=== PATIENT | female | born 1960 | race Caucasian/White ===

== ENCOUNTER 2017-08-15 05:04 | Inpatient (IN) | payer OTHER ==
[2017-08-15 05:24] LABS: ADD MAN DIFF? NO
[2017-08-15 05:29] LABS: WHITE BLOOD COUNT 17.5 10^3/ul (4.8-10.8)
[2017-08-15 05:29] LABS: BASOPHIL # 0.1 10^3/ul (0.0-0.1); BASOPHILS % 0.3 % (0.0-2.0); EOSINOPHILS # 0.2 10^3/ul (0.0-0.5); EOSINOPHILS % 1.1 % (0.0-7.0); HEMATOCRIT 29.8 % (37.0-47.0); HEMOGLOBIN 9.2 g/dl (12.0-16.0); LYMPHOCYTES # 1.5 10^3/ul (0.8-2.9); LYMPHOCYTES % 8.3 % (15.0-51.0); MEAN CORPUSCULAR HEMOGLOBIN 29.4 pg (29.0-33.0); MEAN CORPUSCULAR HGB CONC 30.9 g/dl (32.0-37.0); MEAN CORPUSCULAR VOLUME 95.2 fl (82.0-101.0); MEAN PLATELET VOLUME 9.6 fl (7.4-10.4); MONOCYTE # 0.9 10^3/ul (0.3-0.9); MONOCYTES % 4.9 % (0.0-11.0); NEUTROPHIL # 14.7 10^3/ul (1.6-7.5); PLATELET COUNT 296 10^3/UL (140-415); RED BLOOD COUNT 3.13 10^6/ul (4.20-5.40); RED CELL DISTRIBUTION WIDTH 16.7 % (11.5-14.5)
[2017-08-15 05:53] LABS: ALANINE AMINOTRANSFERASE 16 IU/L (13-69); ALKALINE PHOSPHATASE 181 IU/L (42-121); ANION GAP 14 (8-16); ASPARTATE AMINO TRANSFERASE 37 IU/L (15-46); BILIRUBIN,INDIRECT 0.2 mg/dl (0-1.1); BILIRUBIN,TOTAL 0.2 mg/dl (0.2-1.3); BLOOD UREA NITROGEN 44 mg/dl (7-20); CALCIUM 7.9 mg/dl (8.4-10.2); CARBON DIOXIDE 21 mmol/L (21-31); CHLORIDE 111 mmol/L (97-110); CREATININE 3.55 mg/dl (0.44-1.00); GLUCOSE 207 mg/dl (70-220); INR 1.16; POTASSIUM 4.4 mmol/L (3.5-5.1); PROTIME 14.9 Sec (12.2-14.2); PT RATIO 1.2; SODIUM 142 mmol/L (135-144)
[2017-08-15 05:54] LABS: PARTIAL THROMBOPLASTIN TIME 34.2 Sec (25.0-35.0)
[2017-08-15 06:02] LABS: B-TYPE NATRIURETIC PEPTIDE 2450 PG/ML (0-125)
[2017-08-15 06:04] LABS: TROPONIN-I 0.013 ng/ml (0.00-0.12)
[2017-08-15 06:26] LABS: LACTIC ACID 1.1 mmol/L (0.5-2.0)
[2017-08-15] MEDS: CEFTRIAXONE 2 GM/50 ML (PMX) 50 ML IVPB (07:00)
[2017-08-15] MEDS: VANCOMYCIN IVPB (07:31)
[2017-08-15] MEDS: SOD CHLORIDE 0.9% IVPB (07:31)
[2017-08-15 07:40] LABS: ADD UMIC YES; UR ASCORBIC ACID NEGATIVE (NEGATIVE); UR BACTERIA MANY /HPF (NONE SEEN); UR BILIRUBIN (Dip) NEGATIVE (NEGATIVE); UR BLOOD (Dip) NEGATIVE (NEGATIVE); UR BUDDING YEAST MANY /HPF (NONE SEEN); UR CLARITY CLOUDY (CLEAR); UR COLOR YELLOW (YELLOW); UR GLUCOSE (Dip) 1+ mg/dL (NEGATIVE); UR KETONES (Dip) NEGATIVE (NEGATIVE); UR LEUKOCYTE ESTERASE (Dip) 3+ Leu/ul (NEGATIVE); UR NITRITE (Dip) NEGATIVE (NEGATIVE); UR RBC 35 /HPF (0-5); UR SPECIFIC GRAVITY (Dip) 1.013 (1.003-1.030); UR TOTAL PROTEIN (Dip) 3+ mg/dl (NEGATIVE); UR UROBILINOGEN (Dip) NEGATIVE (NEGATIVE); UR WBC > 182 /HPF (0-5)
[2017-08-15] MEDS ORDERED: ACETAMINOPHEN 325 MG TAB PO (08:00)
[2017-08-15] MEDS ORDERED: ONDANSETRON 4 MG INJ IV (08:00)
[2017-08-15 08:10] LABS: LACTIC ACID 0.9 mmol/L (0.5-2.0)
[2017-08-15 10:03] LABS: LACTIC ACID 0.8 mmol/L (0.5-2.0)
[2017-08-15] MEDS ORDERED: CEFTRIAXONE 1 GM/50 ML (PMX) 50 ML IVPB ×2 (16:30→17:00)
[2017-08-15] MEDS ORDERED: NACL 0.9% 3 ML SYG IV (16:30)
[2017-08-15] MEDS: SOD CHLORIDE 0.9% 1,000 ML IV (16:39)
[2017-08-15] MEDS: INSULIN ASPART [NOVOLOG] 3 ML PEN SC ×2 (17:42→21:00)
[2017-08-15] MEDS: HYDROCODONE/APAP (5/325) TAB PO (19:32)
[2017-08-16] MEDS: SOD CHLORIDE 0.9% 1,000 ML IV ×3 (02:13→23:49)
[2017-08-16] MEDS: ACCU-CHEK XX (02:54)
[2017-08-16] MEDS: PANTOPRAZOLE (EC) 40 MG TAB PO (06:03)
[2017-08-16] MEDS: CEFTRIAXONE 1 GM/50 ML (PMX) 50 ML IVPB (06:06)
[2017-08-16] MEDS: FUROSEMIDE 40 MG INJ IV (06:06)
[2017-08-16 07:33] LABS: ADD MAN DIFF? NO
[2017-08-16 07:38] LABS: BASOPHILS % 0.3 % (0.0-2.0); EOSINOPHILS # 0.3 10^3/ul (0.0-0.5); EOSINOPHILS % 1.7 % (0.0-7.0); HEMOGLOBIN 8.2 g/dl (12.0-16.0); LYMPHOCYTES # 1.1 10^3/ul (0.8-2.9); LYMPHOCYTES % 7.3 % (15.0-51.0); MEAN CORPUSCULAR HEMOGLOBIN 29.6 pg (29.0-33.0); MEAN CORPUSCULAR HGB CONC 30.4 g/dl (32.0-37.0); MEAN CORPUSCULAR VOLUME 97.5 fl (82.0-101.0); MEAN PLATELET VOLUME 9.6 fl (7.4-10.4); MONOCYTE # 0.8 10^3/ul (0.3-0.9); MONOCYTES % 5.5 % (0.0-11.0); NEUTROPHIL # 12.6 10^3/ul (1.6-7.5); NEUTROPHILS % 84.1 % (39.0-77.0); PLATELET COUNT 245 10^3/UL (140-415); RED BLOOD COUNT 2.77 10^6/ul (4.20-5.40); RED CELL DISTRIBUTION WIDTH 16.3 % (11.5-14.5)
[2017-08-16] MEDS: POTASSIUM CHLORIDE (SR) 20 MEQ TAB PO (08:07)
[2017-08-16] MEDS: ASPIRIN 81 MG TAB PO (08:07)
[2017-08-16] MEDS: LINAGLIPTIN 5 MG TABLET PO (08:07)
[2017-08-16] MEDS: MULTIVIT/CA CARB/B CMPLX/FA TAB PO (08:07)
[2017-08-16 08:08] LABS: ANION GAP 12 (8-16); BLOOD UREA NITROGEN 45 mg/dl (7-20); CALCIUM 7.7 mg/dl (8.4-10.2); CARBON DIOXIDE 21 mmol/L (21-31); CHLORIDE 112 mmol/L (97-110); CREATININE 3.34 mg/dl (0.44-1.00); GLUCOSE 172 mg/dl (70-220); MAGNESIUM 1.4 mg/dl (1.7-2.5); PHOSPHORUS 5.7 mg/dl (2.5-4.9); POTASSIUM 4.1 mmol/L (3.5-5.1); SODIUM 141 mmol/L (135-144)
[2017-08-16] MEDS: INSULIN ASPART [NOVOLOG] 3 ML PEN SC ×6 (08:12→22:52)
[2017-08-16] MEDS ORDERED: GLUCOSE GEL 15 GRAM TUBE BUCCAL (12:00)
[2017-08-16] MEDS ORDERED: GLUCOSE GEL 15 GRAM TUBE PO ×2 (12:00)
[2017-08-16] MEDS ORDERED: DEXTROSE 50% 50 ML SYRINGE IV ×2 (12:00)
[2017-08-16] MEDS ORDERED: GLUCAGON 1 MG INJ IM (12:00)
[2017-08-16] MEDS ORDERED: VANCOMYCIN IV PER PHARMACY XX (13:00)
[2017-08-16] MEDS: FLUCONAZOLE 100 MG/NS (PMX) 50 ML IVPB (13:18)
[2017-08-16] MEDS: MAGNESIUM SULFATE 2 GM/50 ML 50 ML IVPB (14:15)
[2017-08-16] MEDS: ISOSORBIDE DINITRATE 20 MG TAB PO ×2 (14:16→22:27)
[2017-08-16] MEDS: EPOETIN 3000 UNITS/1 ML INJ (ESRD) SC (17:48)
[2017-08-16] MEDS: ATORVASTATIN 40 MG TAB PO (22:26)
[2017-08-16] MEDS: INSULIN GLARGINE [LANtus] 3 ML PEN SC (22:52)
[2017-08-17] MEDS: ACCU-CHEK XX ×2 (02:00)
[2017-08-17] MEDS ORDERED: hydrALAzine 20 MG INJ IV (03:30)
[2017-08-17 05:41] LABS: ADD MAN DIFF? NO
[2017-08-17 05:42] LABS: WHITE BLOOD COUNT 14.3 10^3/ul (4.8-10.8)
[2017-08-17 05:42] LABS: BASOPHILS % 0.2 % (0.0-2.0); EOSINOPHILS # 0.3 10^3/ul (0.0-0.5); HEMATOCRIT 26.1 % (37.0-47.0); HEMOGLOBIN 7.9 g/dl (12.0-16.0); LYMPHOCYTES # 1.2 10^3/ul (0.8-2.9); LYMPHOCYTES % 8.5 % (15.0-51.0); MEAN CORPUSCULAR HGB CONC 30.3 g/dl (32.0-37.0); MEAN PLATELET VOLUME 9.7 fl (7.4-10.4); MONOCYTE # 0.9 10^3/ul (0.3-0.9); NEUTROPHIL # 11.8 10^3/ul (1.6-7.5); NEUTROPHILS % 82.4 % (39.0-77.0); PLATELET COUNT 227 10^3/UL (140-415); RED BLOOD COUNT 2.72 10^6/ul (4.20-5.40); RED CELL DISTRIBUTION WIDTH 16.4 % (11.5-14.5)
[2017-08-17 05:56] LABS: HEMOGLOBIN A1C 6.1 % (0-5.9)
[2017-08-17 06:35] LABS: ANION GAP 11 (8-16); BLOOD UREA NITROGEN 44 mg/dl (7-20); CALCIUM 7.7 mg/dl (8.4-10.2); CARBON DIOXIDE 20 mmol/L (21-31); CHLORIDE 114 mmol/L (97-110); CHOL/HDL RATIO 3.9 RATIO; CHOLESTEROL 106 mg/dl (100-200); CREATININE 3.55 mg/dl (0.44-1.00); GLUCOSE 156 mg/dl (70-220); HDL CHOLESTEROL 27 mg/dl (37-92); LDL CHOLESTEROL,CALCULATED 60 mg/dl; POTASSIUM 4.1 mmol/L (3.5-5.1); SODIUM 141 mmol/L (135-144); TRIGLYCERIDES 94 mg/dl (0-149)
[2017-08-17] MEDS: CEFTRIAXONE 1 GM/50 ML (PMX) 50 ML IVPB (06:35)
[2017-08-17] MEDS: PANTOPRAZOLE (EC) 40 MG TAB PO (06:35)
[2017-08-17 06:36] LABS: VANCOMYCIN,RANDOM 13.8 ug/ml
[2017-08-17] MEDS: FUROSEMIDE 40 MG INJ IV (06:36)
[2017-08-17 06:54] LABS: THYROID STIMULATING HORMONE 0.826 MIU/L (0.465-4.680)
[2017-08-17] MEDS: MULTIVIT/CA CARB/B CMPLX/FA TAB PO (08:20)
[2017-08-17] MEDS: ISOSORBIDE DINITRATE 20 MG TAB PO ×3 (08:21→21:02)
[2017-08-17] MEDS: POTASSIUM CHLORIDE (SR) 20 MEQ TAB PO (08:21)
[2017-08-17] MEDS: LINAGLIPTIN 5 MG TABLET PO (08:21)
[2017-08-17] MEDS: ASPIRIN 81 MG TAB PO (08:22)
[2017-08-17] MEDS: INSULIN ASPART [NOVOLOG] 3 ML PEN SC ×7 (08:23→21:00)
[2017-08-17] MEDS: VANCOMYCIN 1.5 GM in SOD CHLORIDE 0.9% 250 ML IVPB (10:49)
[2017-08-17] MEDS: CITRIC ACID/SODIUM CITRATE 15 ML CUP PO ×2 (13:36→21:03)
[2017-08-17] MEDS: FLUCONAZOLE 100 MG/NS (PMX) 50 ML IVPB (14:45)
[2017-08-17] MEDS: ATORVASTATIN 40 MG TAB PO (21:01)
[2017-08-17] MEDS: VORICONAZOLE 200 MG TAB PO (21:02)
[2017-08-17] MEDS: INSULIN GLARGINE [LANtus] 3 ML PEN SC (21:11)
[2017-08-18] MEDS: ACCU-CHEK XX ×2 (02:00)
[2017-08-18] MEDS: hydrALAzine 20 MG INJ IV (02:31)
[2017-08-18] MEDS: FUROSEMIDE 40 MG INJ IV (05:30)
[2017-08-18] MEDS: PANTOPRAZOLE (EC) 40 MG TAB PO (05:30)
[2017-08-18] MEDS: INSULIN ASPART [NOVOLOG] 3 ML PEN SC ×7 (08:04→20:55)
[2017-08-18] MEDS: CITRIC ACID/SODIUM CITRATE 15 ML CUP PO ×3 (08:28→20:54)
[2017-08-18] MEDS: ASPIRIN 81 MG TAB PO (08:28)
[2017-08-18] MEDS: POTASSIUM CHLORIDE (SR) 20 MEQ TAB PO (08:29)
[2017-08-18] MEDS: MULTIVIT/CA CARB/B CMPLX/FA TAB PO (08:29)
[2017-08-18] MEDS: ISOSORBIDE DINITRATE 20 MG TAB PO ×3 (08:29→20:55)
[2017-08-18] MEDS: VORICONAZOLE 200 MG TAB PO ×2 (08:29→20:54)
[2017-08-18] MEDS: LINAGLIPTIN 5 MG TABLET PO (08:30)
[2017-08-18] MEDS: ATORVASTATIN 40 MG TAB PO (20:54)
[2017-08-18] MEDS: INSULIN GLARGINE [LANtus] 3 ML PEN SC (21:00)
[2017-08-19] MEDS: ACCU-CHEK XX ×2 (01:54→01:55)
[2017-08-19 05:56] LABS: ADD MAN DIFF? NO
[2017-08-19] MEDS: PANTOPRAZOLE (EC) 40 MG TAB PO (06:01)
[2017-08-19] MEDS: FUROSEMIDE 40 MG INJ IV (06:01)
[2017-08-19 06:11] LABS: BASOPHILS % 0.2 % (0.0-2.0); EOSINOPHILS # 0.3 10^3/ul (0.0-0.5); EOSINOPHILS % 1.9 % (0.0-7.0); HEMATOCRIT 24.7 % (37.0-47.0); HEMOGLOBIN 7.4 g/dl (12.0-16.0); LYMPHOCYTES # 1.6 10^3/ul (0.8-2.9); MEAN CORPUSCULAR HEMOGLOBIN 28.7 pg (29.0-33.0); MEAN CORPUSCULAR VOLUME 95.7 fl (82.0-101.0); MONOCYTE # 0.9 10^3/ul (0.3-0.9); MONOCYTES % 5.8 % (0.0-11.0); PLATELET COUNT 229 10^3/UL (140-415); RED BLOOD COUNT 2.58 10^6/ul (4.20-5.40)
[2017-08-19 06:11] LABS: WHITE BLOOD COUNT 16.1 10^3/ul (4.8-10.8)
[2017-08-19 06:38] LABS: ANION GAP 14 (8-16); BLOOD UREA NITROGEN 49 mg/dl (7-20); CALCIUM 7.4 mg/dl (8.4-10.2); CARBON DIOXIDE 21 mmol/L (21-31); CHLORIDE 111 mmol/L (97-110); CREATININE 3.48 mg/dl (0.44-1.00); GLUCOSE 147 mg/dl (70-220); POTASSIUM 4.5 mmol/L (3.5-5.1); SODIUM 141 mmol/L (135-144)
[2017-08-19] MEDS: INSULIN ASPART [NOVOLOG] 3 ML PEN SC ×7 (08:21→20:42)
[2017-08-19] MEDS: MULTIVIT/CA CARB/B CMPLX/FA TAB PO (09:56)
[2017-08-19] MEDS: ASPIRIN 81 MG TAB PO (09:56)
[2017-08-19] MEDS: CITRIC ACID/SODIUM CITRATE 15 ML CUP PO ×3 (09:56→20:41)
[2017-08-19] MEDS: LINAGLIPTIN 5 MG TABLET PO (09:56)
[2017-08-19] MEDS: POTASSIUM CHLORIDE (SR) 20 MEQ TAB PO (09:56)
[2017-08-19] MEDS: VORICONAZOLE 200 MG TAB PO ×2 (09:56→20:40)
[2017-08-19] MEDS: ISOSORBIDE DINITRATE 20 MG TAB PO ×3 (09:57→20:42)
[2017-08-19] MEDS: EPOETIN 3000 UNITS/1 ML INJ (ESRD) SC (17:27)
[2017-08-19] MEDS: ATORVASTATIN 40 MG TAB PO (20:40)
[2017-08-19] MEDS: INSULIN GLARGINE [LANtus] 3 ML PEN SC (20:45)
[2017-08-19] MEDS: VANCOMYCIN 1.25 GM in SOD CHLORIDE 0.9% 250 ML IVPB (20:47)
[2017-08-19] MEDS: CLOTRIMAZOLE 1% 30 GM CR TOP ×2 (21:00→22:47)
[2017-08-20] MEDS: ACCU-CHEK XX ×2 (02:00)
[2017-08-20] MEDS: PANTOPRAZOLE (EC) 40 MG TAB PO (05:23)
[2017-08-20] MEDS: FUROSEMIDE 40 MG INJ IV (05:25)
[2017-08-20 06:19] LABS: ADD MAN DIFF? NO
[2017-08-20 06:27] LABS: WHITE BLOOD COUNT 15.1 10^3/ul (4.8-10.8)
[2017-08-20 06:27] LABS: BASOPHIL # 0.1 10^3/ul (0.0-0.1); BASOPHILS % 0.3 % (0.0-2.0); EOSINOPHILS # 0.3 10^3/ul (0.0-0.5); EOSINOPHILS % 1.7 % (0.0-7.0); HEMATOCRIT 24.7 % (37.0-47.0); HEMOGLOBIN 7.6 g/dl (12.0-16.0); LYMPHOCYTES # 1.3 10^3/ul (0.8-2.9); LYMPHOCYTES % 8.5 % (15.0-51.0); MEAN CORPUSCULAR HEMOGLOBIN 29.6 pg (29.0-33.0); MEAN CORPUSCULAR HGB CONC 30.8 g/dl (32.0-37.0); MEAN CORPUSCULAR VOLUME 96.1 fl (82.0-101.0); MEAN PLATELET VOLUME 10.1 fl (7.4-10.4); MONOCYTE # 0.9 10^3/ul (0.3-0.9); MONOCYTES % 6.2 % (0.0-11.0); NEUTROPHIL # 12.3 10^3/ul (1.6-7.5); NEUTROPHILS % 81.9 % (39.0-77.0); PLATELET COUNT 241 10^3/UL (140-415); RED BLOOD COUNT 2.57 10^6/ul (4.20-5.40)
[2017-08-20 06:53] LABS: IRON 24 ug/dl (35-150)
[2017-08-20 07:00] LABS: ANION GAP 14 (8-16); BLOOD UREA NITROGEN 51 mg/dl (7-20); CALCIUM 7.7 mg/dl (8.4-10.2); CARBON DIOXIDE 22 mmol/L (21-31); CHLORIDE 112 mmol/L (97-110); CREATININE 3.27 mg/dl (0.44-1.00); GLUCOSE 162 mg/dl (70-220); POTASSIUM 4.5 mmol/L (3.5-5.1); SODIUM 143 mmol/L (135-144)
[2017-08-20 07:03] LABS: % IRON SATURATION 20 % SAT (22-52); TOTAL IRON BINDING CAPACITY 118 ug/dl (241-421)
[2017-08-20 07:38] LABS: OCCULT BLOOD STOOL NEGATIVE (NEGATIVE)
[2017-08-20 08:04] LABS: FOLATE 13.1 ng/ml (2.8-20.0)
[2017-08-20] MEDS: CITRIC ACID/SODIUM CITRATE 15 ML CUP PO ×3 (08:21→20:39)
[2017-08-20] MEDS: POTASSIUM CHLORIDE (SR) 20 MEQ TAB PO (08:22)
[2017-08-20] MEDS: VORICONAZOLE 200 MG TAB PO ×2 (08:22→20:38)
[2017-08-20] MEDS: LINAGLIPTIN 5 MG TABLET PO (08:22)
[2017-08-20] MEDS: MULTIVIT/CA CARB/B CMPLX/FA TAB PO (08:22)
[2017-08-20] MEDS: ASPIRIN 81 MG TAB PO (08:22)
[2017-08-20] MEDS: ISOSORBIDE DINITRATE 20 MG TAB PO ×3 (08:23→20:39)
[2017-08-20] MEDS: CLOTRIMAZOLE 1% 30 GM CR TOP ×2 (08:27→20:39)
[2017-08-20] MEDS: GENTAMICIN 0.1% 15 GM OINT TOP (08:27)
[2017-08-20] MEDS: SILVER SULFADIAZINE 1% 25 GM CR TOP (08:27)
[2017-08-20] MEDS: INSULIN ASPART [NOVOLOG] 3 ML PEN SC ×7 (08:32→20:40)
[2017-08-20] MEDS: ATORVASTATIN 40 MG TAB PO (20:39)
[2017-08-20] MEDS: INSULIN GLARGINE [LANtus] 3 ML PEN SC (20:46)
[2017-08-21] MEDS: ACCU-CHEK XX ×2 (01:20→01:26)
[2017-08-21] MEDS: PANTOPRAZOLE (EC) 40 MG TAB PO (05:40)
[2017-08-21] MEDS: FUROSEMIDE 40 MG INJ IV (05:40)
[2017-08-21 06:56] LABS: ADD MAN DIFF? NO
[2017-08-21 07:05] LABS: BASOPHILS % 0.3 % (0.0-2.0); EOSINOPHILS # 0.3 10^3/ul (0.0-0.5); EOSINOPHILS % 2.3 % (0.0-7.0); HEMOGLOBIN 7.4 g/dl (12.0-16.0); LYMPHOCYTES # 1.5 10^3/ul (0.8-2.9); LYMPHOCYTES % 11.1 % (15.0-51.0); MEAN CORPUSCULAR HEMOGLOBIN 29.6 pg (29.0-33.0); MEAN CORPUSCULAR HGB CONC 30.8 g/dl (32.0-37.0); MEAN PLATELET VOLUME 10.1 fl (7.4-10.4); MONOCYTE # 0.9 10^3/ul (0.3-0.9); MONOCYTES % 6.8 % (0.0-11.0); NEUTROPHIL # 10.3 10^3/ul (1.6-7.5); NEUTROPHILS % 78.1 % (39.0-77.0); PLATELET COUNT 244 10^3/UL (140-415); RED CELL DISTRIBUTION WIDTH 15.9 % (11.5-14.5)
[2017-08-21 07:05] LABS: WHITE BLOOD COUNT 13.2 10^3/ul (4.8-10.8)
[2017-08-21 07:19] LABS: ANION GAP 11 (8-16); BLOOD UREA NITROGEN 49 mg/dl (7-20); CALCIUM 7.7 mg/dl (8.4-10.2); CARBON DIOXIDE 24 mmol/L (21-31); CHLORIDE 111 mmol/L (97-110); CREATININE 3.61 mg/dl (0.44-1.00); GLUCOSE 159 mg/dl (70-220); POTASSIUM 4.4 mmol/L (3.5-5.1); SODIUM 142 mmol/L (135-144)
[2017-08-21 07:20] LABS: MAGNESIUM 1.5 mg/dl (1.7-2.5)
[2017-08-21] MEDS: INSULIN ASPART [NOVOLOG] 3 ML PEN SC ×7 (08:28→20:28)
[2017-08-21] MEDS: MULTIVIT/CA CARB/B CMPLX/FA TAB PO (08:32)
[2017-08-21] MEDS: ASPIRIN 81 MG TAB PO (08:32)
[2017-08-21] MEDS: VORICONAZOLE 200 MG TAB PO ×2 (08:33→20:27)
[2017-08-21] MEDS: LINAGLIPTIN 5 MG TABLET PO (08:33)
[2017-08-21] MEDS: POTASSIUM CHLORIDE (SR) 20 MEQ TAB PO (08:34)
[2017-08-21] MEDS: ISOSORBIDE DINITRATE 20 MG TAB PO ×3 (08:34→20:33)
[2017-08-21] MEDS: GENTAMICIN 0.1% 15 GM OINT TOP (08:35)
[2017-08-21] MEDS: CLOTRIMAZOLE 1% 30 GM CR TOP ×2 (08:35→20:28)
[2017-08-21] MEDS: CITRIC ACID/SODIUM CITRATE 15 ML CUP PO ×3 (08:35→20:28)
[2017-08-21] MEDS: SILVER SULFADIAZINE 1% 25 GM CR TOP (08:35)
[2017-08-21] MEDS: MAGNESIUM SULFATE 2 GM/50 ML 50 ML IVPB (16:30)
[2017-08-21] MEDS: EPOETIN 3000 UNITS/1 ML INJ (ESRD) SC (17:29)
[2017-08-21] MEDS: hydrALAzine 20 MG INJ IV (19:03)
[2017-08-21] MEDS: INSULIN GLARGINE [LANtus] 3 ML PEN SC (20:26)
[2017-08-21] MEDS: ATORVASTATIN 40 MG TAB PO (20:27)
[2017-08-22] MEDS: ACCU-CHEK XX ×2 (01:15)
[2017-08-22] MEDS: PANTOPRAZOLE (EC) 40 MG TAB PO (05:25)
[2017-08-22] MEDS: FUROSEMIDE 40 MG INJ IV (05:29)
[2017-08-22 06:19] LABS: ADD MAN DIFF? NO
[2017-08-22 06:23] LABS: WHITE BLOOD COUNT 12.5 10^3/ul (4.8-10.8)
[2017-08-22 06:23] LABS: BASOPHIL # 0.1 10^3/ul (0.0-0.1); BASOPHILS % 0.4 % (0.0-2.0); EOSINOPHILS # 0.2 10^3/ul (0.0-0.5); EOSINOPHILS % 1.8 % (0.0-7.0); HEMOGLOBIN 7.6 g/dl (12.0-16.0); LYMPHOCYTES # 1.4 10^3/ul (0.8-2.9); MEAN CORPUSCULAR HEMOGLOBIN 29.3 pg (29.0-33.0); MEAN CORPUSCULAR HGB CONC 30.4 g/dl (32.0-37.0); MEAN CORPUSCULAR VOLUME 96.5 fl (82.0-101.0); MEAN PLATELET VOLUME 10.5 fl (7.4-10.4); MONOCYTE # 0.9 10^3/ul (0.3-0.9); NEUTROPHIL # 9.8 10^3/ul (1.6-7.5); NEUTROPHILS % 78.3 % (39.0-77.0); PLATELET COUNT 241 10^3/UL (140-415); RED BLOOD COUNT 2.59 10^6/ul (4.20-5.40)
[2017-08-22 06:57] LABS: ANION GAP 14 (8-16); BLOOD UREA NITROGEN 49 mg/dl (7-20); CALCIUM 7.5 mg/dl (8.4-10.2); CARBON DIOXIDE 23 mmol/L (21-31); CHLORIDE 108 mmol/L (97-110); CREATININE 3.46 mg/dl (0.44-1.00); GLUCOSE 150 mg/dl (70-220); POTASSIUM 4.3 mmol/L (3.5-5.1); SODIUM 141 mmol/L (135-144)
[2017-08-22] MEDS: INSULIN ASPART [NOVOLOG] 3 ML PEN SC ×7 (08:29→21:00)
[2017-08-22] MEDS: ASPIRIN 81 MG TAB PO (08:58)
[2017-08-22] MEDS: ERGOCALCIFEROL 50,000 UNIT CAP PO (08:58)
[2017-08-22] MEDS: CITRIC ACID/SODIUM CITRATE 15 ML CUP PO ×3 (08:58→21:40)
[2017-08-22] MEDS: POTASSIUM CHLORIDE (SR) 20 MEQ TAB PO (08:59)
[2017-08-22] MEDS: ISOSORBIDE DINITRATE 20 MG TAB PO ×3 (08:59→21:41)
[2017-08-22] MEDS: VORICONAZOLE 200 MG TAB PO ×2 (09:00→21:41)
[2017-08-22] MEDS: SILVER SULFADIAZINE 1% 25 GM CR TOP (09:00)
[2017-08-22] MEDS: GENTAMICIN 0.1% 15 GM OINT TOP (09:00)
[2017-08-22] MEDS: MULTIVIT/CA CARB/B CMPLX/FA TAB PO (09:00)
[2017-08-22] MEDS: CLOTRIMAZOLE 1% 30 GM CR TOP ×2 (09:00→21:52)
[2017-08-22] MEDS: LINAGLIPTIN 5 MG TABLET PO (09:00)
[2017-08-22] MEDS: DAPTOMYCIN 600 MG in SOD CHLORIDE 0.9% 100 ML IVPB (15:57)
[2017-08-22] MEDS: ATORVASTATIN 40 MG TAB PO (21:41)
[2017-08-22] MEDS: INSULIN GLARGINE [LANtus] 3 ML PEN SC (21:50)
[2017-08-23] MEDS: ACCU-CHEK XX ×2 (02:00)
[2017-08-23] MEDS: FUROSEMIDE 40 MG INJ IV (06:19)
[2017-08-23] MEDS: PANTOPRAZOLE (EC) 40 MG TAB PO (06:19)
[2017-08-23 06:43] LABS: CREATINE KINASE < 20 IU/L (23-200)
[2017-08-23] MEDS: INSULIN ASPART [NOVOLOG] 3 ML PEN SC ×7 (08:29→20:12)
[2017-08-23] MEDS: CLOTRIMAZOLE 1% 30 GM CR TOP ×2 (09:00→20:49)
[2017-08-23] MEDS: GENTAMICIN 0.1% 15 GM OINT TOP (09:00)
[2017-08-23] MEDS: SILVER SULFADIAZINE 1% 25 GM CR TOP (09:00)
[2017-08-23] MEDS: ASPIRIN 81 MG TAB PO (09:00)
[2017-08-23] MEDS: ISOSORBIDE DINITRATE 20 MG TAB PO ×3 (09:16→20:48)
[2017-08-23] MEDS: VORICONAZOLE 200 MG TAB PO ×2 (09:16→20:48)
[2017-08-23] MEDS: POTASSIUM CHLORIDE (SR) 20 MEQ TAB PO (09:16)
[2017-08-23] MEDS: MULTIVIT/CA CARB/B CMPLX/FA TAB PO (09:16)
[2017-08-23] MEDS: LINAGLIPTIN 5 MG TABLET PO (09:17)
[2017-08-23] MEDS: CITRIC ACID/SODIUM CITRATE 15 ML CUP PO ×3 (09:17→20:48)
[2017-08-23] MEDS: NIFEdipine (XL) 30 MG TAB PO (11:49)
[2017-08-23] MEDS: EPOETIN 3000 UNITS/1 ML INJ (ESRD) SC (16:44)
[2017-08-23] MEDS: INSULIN GLARGINE [LANtus] 3 ML PEN SC (19:58)
[2017-08-23] MEDS: ATORVASTATIN 40 MG TAB PO (20:48)
[2017-08-24] MEDS: ACCU-CHEK XX ×2 (02:00)
[2017-08-24] MEDS: PANTOPRAZOLE (EC) 40 MG TAB PO (05:45)
[2017-08-24] MEDS: FUROSEMIDE 40 MG INJ IV (05:47)
[2017-08-24 06:32] LABS: ADD MAN DIFF? NO
[2017-08-24 06:34] LABS: WHITE BLOOD COUNT 15.8 10^3/ul (4.8-10.8)
[2017-08-24 06:34] LABS: BASOPHIL # 0.1 10^3/ul (0.0-0.1); BASOPHILS % 0.4 % (0.0-2.0); EOSINOPHILS # 0.2 10^3/ul (0.0-0.5); EOSINOPHILS % 1.3 % (0.0-7.0); HEMATOCRIT 24.2 % (37.0-47.0); HEMOGLOBIN 7.5 g/dl (12.0-16.0); LYMPHOCYTES # 1.7 10^3/ul (0.8-2.9); LYMPHOCYTES % 10.6 % (15.0-51.0); MEAN CORPUSCULAR HEMOGLOBIN 29.4 pg (29.0-33.0); MEAN CORPUSCULAR VOLUME 94.9 fl (82.0-101.0); MEAN PLATELET VOLUME 9.7 fl (7.4-10.4); MONOCYTES % 6.5 % (0.0-11.0); NEUTROPHIL # 12.5 10^3/ul (1.6-7.5); NEUTROPHILS % 79.4 % (39.0-77.0); PLATELET COUNT 293 10^3/UL (140-415); RED BLOOD COUNT 2.55 10^6/ul (4.20-5.40); RED CELL DISTRIBUTION WIDTH 15.9 % (11.5-14.5)
[2017-08-24 07:12] LABS: ANION GAP 13 (8-16); BLOOD UREA NITROGEN 60 mg/dl (7-20); CARBON DIOXIDE 25 mmol/L (21-31); CHLORIDE 107 mmol/L (97-110); CREATININE 4.28 mg/dl (0.44-1.00); GLUCOSE 154 mg/dl (70-220); POTASSIUM 4.3 mmol/L (3.5-5.1); SODIUM 141 mmol/L (135-144)
[2017-08-24] MEDS: INSULIN ASPART [NOVOLOG] 3 ML PEN SC ×7 (08:38→20:51)
[2017-08-24] MEDS: CITRIC ACID/SODIUM CITRATE 15 ML CUP PO ×3 (09:20→20:49)
[2017-08-24] MEDS: POTASSIUM CHLORIDE (SR) 20 MEQ TAB PO (09:21)
[2017-08-24] MEDS: VORICONAZOLE 200 MG TAB PO ×2 (09:21→20:50)
[2017-08-24] MEDS: LINAGLIPTIN 5 MG TABLET PO (09:22)
[2017-08-24] MEDS: ISOSORBIDE DINITRATE 20 MG TAB PO ×3 (09:22→20:51)
[2017-08-24] MEDS: MULTIVIT/CA CARB/B CMPLX/FA TAB PO (09:22)
[2017-08-24] MEDS: NIFEdipine (XL) 30 MG TAB PO (09:22)
[2017-08-24] MEDS: ASPIRIN 81 MG TAB PO (09:22)
[2017-08-24] MEDS: CLOTRIMAZOLE 1% 30 GM CR TOP ×2 (09:23→20:57)
[2017-08-24] MEDS: GENTAMICIN 0.1% 15 GM OINT TOP (09:23)
[2017-08-24] MEDS: SILVER SULFADIAZINE 1% 25 GM CR TOP (09:25)
[2017-08-24] MEDS: DAPTOMYCIN 600 MG in SOD CHLORIDE 0.9% 100 ML IVPB (15:15)
[2017-08-24] MEDS: ATORVASTATIN 40 MG TAB PO (20:50)
[2017-08-24] MEDS: INSULIN GLARGINE [LANtus] 3 ML PEN SC (20:56)
[2017-08-25] MEDS: ACCU-CHEK XX ×2 (02:00)
[2017-08-25] MEDS: PANTOPRAZOLE (EC) 40 MG TAB PO (05:56)
[2017-08-25] MEDS: FUROSEMIDE 40 MG INJ IV (05:57)
[2017-08-25] MEDS: INSULIN ASPART [NOVOLOG] 3 ML PEN SC ×7 (08:45→20:26)
[2017-08-25] MEDS: ISOSORBIDE DINITRATE 20 MG TAB PO ×3 (08:49→20:23)
[2017-08-25] MEDS: CITRIC ACID/SODIUM CITRATE 15 ML CUP PO ×3 (08:49→20:22)
[2017-08-25] MEDS: VORICONAZOLE 200 MG TAB PO ×2 (08:50→20:22)
[2017-08-25] MEDS: POTASSIUM CHLORIDE (SR) 20 MEQ TAB PO (08:50)
[2017-08-25] MEDS: ASPIRIN 81 MG TAB PO (08:50)
[2017-08-25] MEDS: LINAGLIPTIN 5 MG TABLET PO (08:50)
[2017-08-25] MEDS: NIFEdipine (XL) 30 MG TAB PO (08:51)
[2017-08-25] MEDS: MULTIVIT/CA CARB/B CMPLX/FA TAB PO (08:54)
[2017-08-25] MEDS: CLOTRIMAZOLE 1% 30 GM CR TOP ×2 (08:55→20:35)
[2017-08-25] MEDS: SILVER SULFADIAZINE 1% 25 GM CR TOP (08:55)
[2017-08-25] MEDS: GENTAMICIN 0.1% 15 GM OINT TOP (08:55)
[2017-08-25 14:51] LABS: ADD MAN DIFF? NO
[2017-08-25 14:58] LABS: WHITE BLOOD COUNT 16.1 10^3/ul (4.8-10.8)
[2017-08-25 14:58] LABS: BASOPHIL # 0.1 10^3/ul (0.0-0.1); BASOPHILS % 0.5 % (0.0-2.0); EOSINOPHILS # 0.2 10^3/ul (0.0-0.5); EOSINOPHILS % 1.2 % (0.0-7.0); HEMATOCRIT 24.6 % (37.0-47.0); HEMOGLOBIN 7.6 g/dl (12.0-16.0); LYMPHOCYTES # 1.5 10^3/ul (0.8-2.9); LYMPHOCYTES % 9.2 % (15.0-51.0); MEAN CORPUSCULAR HEMOGLOBIN 29.1 pg (29.0-33.0); MEAN CORPUSCULAR HGB CONC 30.9 g/dl (32.0-37.0); MEAN CORPUSCULAR VOLUME 94.3 fl (82.0-101.0); MONOCYTE # 0.9 10^3/ul (0.3-0.9); MONOCYTES % 5.7 % (0.0-11.0); NEUTROPHIL # 13.2 10^3/ul (1.6-7.5); PLATELET COUNT 308 10^3/UL (140-415); RED BLOOD COUNT 2.61 10^6/ul (4.20-5.40); RED CELL DISTRIBUTION WIDTH 16.3 % (11.5-14.5)
[2017-08-25 15:17] LABS: ANION GAP 16 (8-16); BLOOD UREA NITROGEN 63 mg/dl (7-20); CALCIUM 7.7 mg/dl (8.4-10.2); CARBON DIOXIDE 25 mmol/L (21-31); CHLORIDE 105 mmol/L (97-110); GLUCOSE 149 mg/dl (70-220); POTASSIUM 4.3 mmol/L (3.5-5.1); SODIUM 142 mmol/L (135-144)
[2017-08-25] MEDS: ATORVASTATIN 40 MG TAB PO (20:23)
[2017-08-25] MEDS: INSULIN GLARGINE [LANtus] 3 ML PEN SC (20:28)
[2017-08-26] MEDS: ACCU-CHEK XX ×4 (02:00→20:22)
[2017-08-26 05:44] LABS: ADD MAN DIFF? NO
[2017-08-26] MEDS: PANTOPRAZOLE (EC) 40 MG TAB PO (05:47)
[2017-08-26 05:53] LABS: BASOPHIL # 0.1 10^3/ul (0.0-0.1); BASOPHILS % 0.5 % (0.0-2.0); EOSINOPHILS # 0.2 10^3/ul (0.0-0.5); EOSINOPHILS % 1.2 % (0.0-7.0); HEMATOCRIT 25.3 % (37.0-47.0); LYMPHOCYTES # 1.4 10^3/ul (0.8-2.9); LYMPHOCYTES % 9.8 % (15.0-51.0); MEAN CORPUSCULAR HEMOGLOBIN 29.5 pg (29.0-33.0); MEAN CORPUSCULAR HGB CONC 31.6 g/dl (32.0-37.0); MEAN CORPUSCULAR VOLUME 93.4 fl (82.0-101.0); MEAN PLATELET VOLUME 9.6 fl (7.4-10.4); MONOCYTE # 0.8 10^3/ul (0.3-0.9); NEUTROPHIL # 11.4 10^3/ul (1.6-7.5); NEUTROPHILS % 81.4 % (39.0-77.0); PLATELET COUNT 305 10^3/UL (140-415); RED BLOOD COUNT 2.71 10^6/ul (4.20-5.40); RED CELL DISTRIBUTION WIDTH 16.5 % (11.5-14.5)
[2017-08-26 06:52] LABS: ANION GAP 15 (8-16); BLOOD UREA NITROGEN 69 mg/dl (7-20); CALCIUM 7.8 mg/dl (8.4-10.2); CARBON DIOXIDE 25 mmol/L (21-31); CHLORIDE 105 mmol/L (97-110); CREATININE 4.64 mg/dl (0.44-1.00); GLUCOSE 137 mg/dl (70-220); POTASSIUM 4.2 mmol/L (3.5-5.1); SODIUM 141 mmol/L (135-144)
[2017-08-26] MEDS: INSULIN ASPART [NOVOLOG] 3 ML PEN SC ×8 (08:15→20:18)
[2017-08-26] MEDS: ISOSORBIDE DINITRATE 20 MG TAB PO ×3 (08:52→20:17)
[2017-08-26] MEDS: POTASSIUM CHLORIDE (SR) 20 MEQ TAB PO ×2 (08:52→12:29)
[2017-08-26] MEDS: CITRIC ACID/SODIUM CITRATE 15 ML CUP PO ×3 (08:52→20:16)
[2017-08-26] MEDS: ASPIRIN 81 MG TAB PO ×2 (08:52→12:28)
[2017-08-26] MEDS: FUROSEMIDE 40 MG TAB PO ×2 (08:53→12:28)
[2017-08-26] MEDS: MULTIVIT/CA CARB/B CMPLX/FA TAB PO ×2 (08:53→12:28)
[2017-08-26] MEDS: NIFEdipine (XL) 30 MG TAB PO ×2 (08:53→12:29)
[2017-08-26] MEDS: LINAGLIPTIN 5 MG TABLET PO ×2 (08:54→12:28)
[2017-08-26] MEDS: VORICONAZOLE 200 MG TAB PO ×3 (08:54→20:15)
[2017-08-26] MEDS: CLOTRIMAZOLE 1% 30 GM CR TOP ×2 (08:55→20:18)
[2017-08-26] MEDS: DAPTOMYCIN 600 MG in SOD CHLORIDE 0.9% 100 ML IVPB (15:29)
[2017-08-26] MEDS: SILVER SULFADIAZINE 1% 25 GM CR TOP (15:30)
[2017-08-26] MEDS: EPOETIN 3000 UNITS/1 ML INJ (ESRD) SC (17:34)
[2017-08-26] MEDS: ATORVASTATIN 40 MG TAB PO (20:16)
[2017-08-26] MEDS: INSULIN GLARGINE [LANtus] 3 ML PEN SC (20:22)
[2017-08-27] MEDS: PANTOPRAZOLE (EC) 40 MG TAB PO (05:06)
[2017-08-27 05:52] LABS: HAAIG REFLEX REFLEX FILED
[2017-08-27] MEDS: morphine 2 MG INJ IV (06:19)
[2017-08-27 07:10] LABS: HEPATITIS B SURFACE ANTIGEN NEGATIVE (NEGATIVE)
[2017-08-27 07:27] LABS: HEPATITIS B CORE ANTIBODY NEGATIVE (NEGATIVE)
[2017-08-27 07:32] LABS: HEPATITIS C VIRAL ANTIBODY REACTIVE (NEGATIVE); HIV 1&2 ANTIBODY NEGATIVE (NEGATIVE)
[2017-08-27] MEDS: INSULIN ASPART [NOVOLOG] 3 ML PEN SC ×7 (08:04→20:50)
[2017-08-27] MEDS: POTASSIUM CHLORIDE (SR) 20 MEQ TAB PO (09:00)
[2017-08-27] MEDS: ISOSORBIDE DINITRATE 20 MG TAB PO ×3 (09:00→20:51)
[2017-08-27] MEDS: LINAGLIPTIN 5 MG TABLET PO (09:00)
[2017-08-27] MEDS: CLOTRIMAZOLE 1% 30 GM CR TOP ×2 (09:00→20:52)
[2017-08-27] MEDS: ASPIRIN 81 MG TAB PO (09:00)
[2017-08-27] MEDS: MULTIVIT/CA CARB/B CMPLX/FA TAB PO (09:00)
[2017-08-27] MEDS: CITRIC ACID/SODIUM CITRATE 15 ML CUP PO ×3 (09:00→20:51)
[2017-08-27] MEDS: FUROSEMIDE 40 MG TAB PO (09:00)
[2017-08-27] MEDS: VORICONAZOLE 200 MG TAB PO ×2 (09:00→20:51)
[2017-08-27] MEDS: SILVER SULFADIAZINE 1% 25 GM CR TOP ×2 (09:00→14:03)
[2017-08-27] MEDS ORDERED: HEPARIN 1000 UNITS/ML 10 ML INJ (10:55)
[2017-08-27] MEDS ORDERED: SOD CHLORIDE 0.9% 500 ML (10:55)
[2017-08-27] MEDS ORDERED: IODIXANOL LOCM 100 ML BTL (10:55)
[2017-08-27] MEDS: ATORVASTATIN 40 MG TAB PO (20:51)
[2017-08-27] MEDS: INSULIN GLARGINE [LANtus] 3 ML PEN SC (20:57)
[2017-08-28] MEDS: ACCU-CHEK XX ×2 (02:00)
[2017-08-28 05:55] LABS: ADD MAN DIFF? NO
[2017-08-28] MEDS: PANTOPRAZOLE (EC) 40 MG TAB PO (06:05)
[2017-08-28 06:06] LABS: BASOPHIL # 0.1 10^3/ul (0.0-0.1); BASOPHILS % 0.5 % (0.0-2.0); EOSINOPHILS # 0.2 10^3/ul (0.0-0.5); EOSINOPHILS % 1.5 % (0.0-7.0); HEMATOCRIT 24.8 % (37.0-47.0); HEMOGLOBIN 7.6 g/dl (12.0-16.0); LYMPHOCYTES # 1.5 10^3/ul (0.8-2.9); LYMPHOCYTES % 9.2 % (15.0-51.0); MEAN CORPUSCULAR HGB CONC 30.6 g/dl (32.0-37.0); MEAN CORPUSCULAR VOLUME 94.7 fl (82.0-101.0); MEAN PLATELET VOLUME 10.2 fl (7.4-10.4); MONOCYTES % 6.3 % (0.0-11.0); NEUTROPHIL # 12.8 10^3/ul (1.6-7.5); NEUTROPHILS % 81.4 % (39.0-77.0); PLATELET COUNT 322 10^3/UL (140-415); RED BLOOD COUNT 2.62 10^6/ul (4.20-5.40); RED CELL DISTRIBUTION WIDTH 16.2 % (11.5-14.5)
[2017-08-28 06:06] LABS: WHITE BLOOD COUNT 15.7 10^3/ul (4.8-10.8)
[2017-08-28 06:42] LABS: ANION GAP 13 (8-16); BLOOD UREA NITROGEN 52 mg/dl (7-20); CALCIUM 7.9 mg/dl (8.4-10.2); CARBON DIOXIDE 28 mmol/L (21-31); CHLORIDE 105 mmol/L (97-110); CREATININE 3.98 mg/dl (0.44-1.00); GLUCOSE 140 mg/dl (70-220); POTASSIUM 4.1 mmol/L (3.5-5.1); SODIUM 142 mmol/L (135-144)
[2017-08-28] MEDS: INSULIN ASPART [NOVOLOG] 3 ML PEN SC ×7 (08:08→21:00)
[2017-08-28] MEDS: ISOSORBIDE DINITRATE 20 MG TAB PO ×3 (09:00→20:49)
[2017-08-28] MEDS: FUROSEMIDE 40 MG TAB PO (09:00)
[2017-08-28] MEDS: NIFEdipine (XL) 30 MG TAB PO (09:00)
[2017-08-28] MEDS: MULTIVIT/CA CARB/B CMPLX/FA TAB PO (09:03)
[2017-08-28] MEDS: VORICONAZOLE 200 MG TAB PO ×2 (09:06→20:49)
[2017-08-28] MEDS: POTASSIUM CHLORIDE (SR) 20 MEQ TAB PO (09:06)
[2017-08-28] MEDS: LINAGLIPTIN 5 MG TABLET PO (09:06)
[2017-08-28] MEDS: CITRIC ACID/SODIUM CITRATE 15 ML CUP PO ×3 (09:07→20:49)
[2017-08-28] MEDS: SILVER SULFADIAZINE 1% 25 GM CR TOP (09:07)
[2017-08-28] MEDS: CLOTRIMAZOLE 1% 30 GM CR TOP ×2 (09:07→20:50)
[2017-08-28] MEDS: ASPIRIN 81 MG TAB PO (09:08)
[2017-08-28] MEDS ORDERED: NITROGLYCERIN (SL) 0.4 MG TAB SL (10:00)
[2017-08-28 11:48] LABS: TROPONIN-I 0.013 ng/ml (0.00-0.12)
[2017-08-28 15:30] LABS: TROPONIN-I < 0.012 ng/ml (0.00-0.12)
[2017-08-28] MEDS: DAPTOMYCIN 600 MG in SOD CHLORIDE 0.9% 100 ML IVPB (15:43)
[2017-08-28] MEDS: EPOETIN 3000 UNITS/1 ML INJ (ESRD) SC (18:04)
[2017-08-28] MEDS: ATORVASTATIN 40 MG TAB PO (20:49)
[2017-08-28] MEDS: INSULIN GLARGINE [LANtus] 3 ML PEN SC (20:59)
[2017-08-29] MEDS: ACCU-CHEK XX ×2 (02:00)
[2017-08-29] MEDS: PANTOPRAZOLE (EC) 40 MG TAB PO (05:58)
[2017-08-29 06:06] LABS: ADD MAN DIFF? NO
[2017-08-29 06:15] LABS: WHITE BLOOD COUNT 13.5 10^3/ul (4.8-10.8)
[2017-08-29 06:15] LABS: BASOPHIL # 0.1 10^3/ul (0.0-0.1); BASOPHILS % 0.6 % (0.0-2.0); EOSINOPHILS # 0.2 10^3/ul (0.0-0.5); EOSINOPHILS % 1.5 % (0.0-7.0); HEMATOCRIT 24.2 % (37.0-47.0); HEMOGLOBIN 7.4 g/dl (12.0-16.0); LYMPHOCYTES # 1.4 10^3/ul (0.8-2.9); LYMPHOCYTES % 10.1 % (15.0-51.0); MEAN CORPUSCULAR HEMOGLOBIN 29.1 pg (29.0-33.0); MEAN CORPUSCULAR HGB CONC 30.6 g/dl (32.0-37.0); MEAN CORPUSCULAR VOLUME 95.3 fl (82.0-101.0); MEAN PLATELET VOLUME 9.9 fl (7.4-10.4); MONOCYTE # 0.9 10^3/ul (0.3-0.9); MONOCYTES % 6.6 % (0.0-11.0); NEUTROPHIL # 10.8 10^3/ul (1.6-7.5); NEUTROPHILS % 80.1 % (39.0-77.0); PLATELET COUNT 307 10^3/UL (140-415); RED BLOOD COUNT 2.54 10^6/ul (4.20-5.40); RED CELL DISTRIBUTION WIDTH 15.9 % (11.5-14.5)
[2017-08-29 06:36] LABS: ANION GAP 12 (8-16); BLOOD UREA NITROGEN 35 mg/dl (7-20); CALCIUM 8.2 mg/dl (8.4-10.2); CARBON DIOXIDE 30 mmol/L (21-31); CHLORIDE 105 mmol/L (97-110); CREATININE 2.94 mg/dl (0.44-1.00); GLUCOSE 147 mg/dl (70-220); POTASSIUM 3.8 mmol/L (3.5-5.1); SODIUM 143 mmol/L (135-144)
[2017-08-29] MEDS: INSULIN ASPART [NOVOLOG] 3 ML PEN SC ×7 (07:57→20:37)
[2017-08-29] MEDS: CITRIC ACID/SODIUM CITRATE 15 ML CUP PO ×3 (08:28→20:37)
[2017-08-29] MEDS: ASPIRIN 81 MG TAB PO (08:28)
[2017-08-29] MEDS: MULTIVIT/CA CARB/B CMPLX/FA TAB PO (08:29)
[2017-08-29] MEDS: POTASSIUM CHLORIDE (SR) 20 MEQ TAB PO (08:29)
[2017-08-29] MEDS: LINAGLIPTIN 5 MG TABLET PO (08:30)
[2017-08-29] MEDS: VORICONAZOLE 200 MG TAB PO ×2 (08:30→20:37)
[2017-08-29] MEDS: NIFEdipine (XL) 30 MG TAB PO (09:00)
[2017-08-29] MEDS: ERGOCALCIFEROL 50,000 UNIT CAP PO ×3 (09:00→14:10)
[2017-08-29] MEDS: ISOSORBIDE DINITRATE 20 MG TAB PO ×3 (09:00→20:37)
[2017-08-29] MEDS: FUROSEMIDE 40 MG TAB PO ×2 (09:00→13:44)
[2017-08-29] MEDS: SILVER SULFADIAZINE 1% 25 GM CR TOP (09:56)
[2017-08-29] MEDS: CLOTRIMAZOLE 1% 30 GM CR TOP ×2 (09:56→20:40)
[2017-08-29] MEDS: INSULIN GLARGINE [LANtus] 3 ML PEN SC (20:13)
[2017-08-29] MEDS: ATORVASTATIN 40 MG TAB PO (20:37)
[2017-08-30] MEDS: ACCU-CHEK XX ×2 (02:00)
[2017-08-30] MEDS: PANTOPRAZOLE (EC) 40 MG TAB PO (06:21)
[2017-08-30 06:31] LABS: ADD MAN DIFF? NO
[2017-08-30 06:34] LABS: BASOPHIL # 0.1 10^3/ul (0.0-0.1); BASOPHILS % 0.5 % (0.0-2.0); EOSINOPHILS # 0.2 10^3/ul (0.0-0.5); EOSINOPHILS % 1.5 % (0.0-7.0); HEMATOCRIT 23.1 % (37.0-47.0); HEMOGLOBIN 7.2 g/dl (12.0-16.0); LYMPHOCYTES # 1.4 10^3/ul (0.8-2.9); LYMPHOCYTES % 10.7 % (15.0-51.0); MEAN CORPUSCULAR HEMOGLOBIN 29.4 pg (29.0-33.0); MEAN CORPUSCULAR HGB CONC 31.2 g/dl (32.0-37.0); MEAN CORPUSCULAR VOLUME 94.3 fl (82.0-101.0); MEAN PLATELET VOLUME 10.2 fl (7.4-10.4); MONOCYTE # 0.9 10^3/ul (0.3-0.9); MONOCYTES % 6.4 % (0.0-11.0); NEUTROPHIL # 10.7 10^3/ul (1.6-7.5); NEUTROPHILS % 79.9 % (39.0-77.0); PLATELET COUNT 308 10^3/UL (140-415); RED BLOOD COUNT 2.45 10^6/ul (4.20-5.40); RED CELL DISTRIBUTION WIDTH 16.2 % (11.5-14.5)
[2017-08-30 06:34] LABS: WHITE BLOOD COUNT 13.4 10^3/ul (4.8-10.8)
[2017-08-30 07:23] LABS: CREATINE KINASE 30 IU/L (23-200)
[2017-08-30 07:25] LABS: ANION GAP 12 (8-16); BLOOD UREA NITROGEN 40 mg/dl (7-20); CARBON DIOXIDE 30 mmol/L (21-31); CHLORIDE 105 mmol/L (97-110); CREATININE 3.42 mg/dl (0.44-1.00); GLUCOSE 111 mg/dl (70-220); POTASSIUM 3.9 mmol/L (3.5-5.1); SODIUM 143 mmol/L (135-144)
[2017-08-30] MEDS: INSULIN ASPART [NOVOLOG] 3 ML PEN SC ×7 (08:15→21:00)
[2017-08-30] MEDS: LINAGLIPTIN 5 MG TABLET PO (08:40)
[2017-08-30] MEDS: ISOSORBIDE DINITRATE 20 MG TAB PO ×3 (08:40→21:43)
[2017-08-30] MEDS: ASPIRIN 81 MG TAB PO (08:40)
[2017-08-30] MEDS: CITRIC ACID/SODIUM CITRATE 15 ML CUP PO ×3 (08:40→21:44)
[2017-08-30] MEDS: VORICONAZOLE 200 MG TAB PO ×2 (08:40→21:43)
[2017-08-30] MEDS: MULTIVIT/CA CARB/B CMPLX/FA TAB PO (08:40)
[2017-08-30] MEDS: POTASSIUM CHLORIDE (SR) 20 MEQ TAB PO (08:40)
[2017-08-30] MEDS: CLOTRIMAZOLE 1% 30 GM CR TOP ×2 (08:41→21:45)
[2017-08-30] MEDS: NIFEdipine (XL) 30 MG TAB PO (09:00)
[2017-08-30] MEDS: SILVER SULFADIAZINE 1% 25 GM CR TOP (09:00)
[2017-08-30] MEDS: FUROSEMIDE 40 MG TAB PO (09:00)
[2017-08-30 16:33] LABS: IMMEDIATE SPIN CROSSMATCH 1 1
[2017-08-30] MEDS: DAPTOMYCIN 600 MG in SOD CHLORIDE 0.9% 100 ML IVPB (18:32)
[2017-08-30] MEDS: EPOETIN 3000 UNITS/1 ML INJ (ESRD) SC (18:34)
[2017-08-30] MEDS: ATORVASTATIN 40 MG TAB PO (21:43)
[2017-08-30] MEDS: INSULIN GLARGINE [LANtus] 3 ML PEN SC (21:53)
[2017-08-30] MEDS: HEPARIN 5,000 UNIT/0.5 ML VIAL SC (21:53)
[2017-08-31] MEDS: ACCU-CHEK XX ×2 (02:00)
[2017-08-31] MEDS: PANTOPRAZOLE (EC) 40 MG TAB PO (05:18)
[2017-08-31 06:16] LABS: ADD MAN DIFF? NO
[2017-08-31 06:44] LABS: WHITE BLOOD COUNT 12.4 10^3/ul (4.8-10.8)
[2017-08-31 06:44] LABS: BASOPHIL # 0.1 10^3/ul (0.0-0.1); BASOPHILS % 0.6 % (0.0-2.0); EOSINOPHILS # 0.2 10^3/ul (0.0-0.5); EOSINOPHILS % 1.6 % (0.0-7.0); HEMATOCRIT 26.7 % (37.0-47.0); HEMOGLOBIN 8.2 g/dl (12.0-16.0); LYMPHOCYTES # 1.4 10^3/ul (0.8-2.9); MEAN CORPUSCULAR HEMOGLOBIN 29.2 pg (29.0-33.0); MEAN CORPUSCULAR HGB CONC 30.7 g/dl (32.0-37.0); MEAN PLATELET VOLUME 10.3 fl (7.4-10.4); MONOCYTES % 7.7 % (0.0-11.0); NEUTROPHIL # 9.7 10^3/ul (1.6-7.5); NEUTROPHILS % 78.1 % (39.0-77.0); PLATELET COUNT 320 10^3/UL (140-415); RED BLOOD COUNT 2.81 10^6/ul (4.20-5.40); RED CELL DISTRIBUTION WIDTH 16.2 % (11.5-14.5)
[2017-08-31 06:52] LABS: ANION GAP 12 (8-16); BLOOD UREA NITROGEN 32 mg/dl (7-20); CALCIUM 7.9 mg/dl (8.4-10.2); CARBON DIOXIDE 30 mmol/L (21-31); CHLORIDE 104 mmol/L (97-110); CREATININE 2.85 mg/dl (0.44-1.00); GLUCOSE 156 mg/dl (70-220); POTASSIUM 3.6 mmol/L (3.5-5.1); SODIUM 142 mmol/L (135-144)
[2017-08-31] MEDS: INSULIN ASPART [NOVOLOG] 3 ML PEN SC ×9 (08:15→20:32)
[2017-08-31] MEDS: CITRIC ACID/SODIUM CITRATE 15 ML CUP PO ×3 (10:11→20:19)
[2017-08-31] MEDS: FUROSEMIDE 40 MG TAB PO (10:12)
[2017-08-31] MEDS: MULTIVIT/CA CARB/B CMPLX/FA TAB PO (10:12)
[2017-08-31] MEDS: ISOSORBIDE DINITRATE 20 MG TAB PO ×3 (10:12→20:20)
[2017-08-31] MEDS: LINAGLIPTIN 5 MG TABLET PO (10:12)
[2017-08-31] MEDS: NIFEdipine (XL) 30 MG TAB PO (10:12)
[2017-08-31] MEDS: ASPIRIN 81 MG TAB PO (10:13)
[2017-08-31] MEDS: POTASSIUM CHLORIDE (SR) 20 MEQ TAB PO (10:13)
[2017-08-31] MEDS: VORICONAZOLE 200 MG TAB PO ×2 (10:22→20:20)
[2017-08-31] MEDS: CLOTRIMAZOLE 1% 30 GM CR TOP ×2 (10:22→20:21)
[2017-08-31] MEDS: SILVER SULFADIAZINE 1% 25 GM CR TOP (10:23)
[2017-08-31] MEDS: HEPARIN 5,000 UNIT/0.5 ML VIAL SC ×2 (10:26→20:31)
[2017-08-31] MEDS ORDERED: VANCOMYCIN IV PER PHARMACY XX (15:30)
[2017-08-31] MEDS: VANCOMYCIN 2 GM in SOD CHLORIDE 0.9% 500 ML IVPB (16:37)
[2017-08-31] MEDS ORDERED: VANCOMYCIN IVPB (17:00)
[2017-08-31] MEDS ORDERED: SOD CHLORIDE 0.9% IVPB (17:00)
[2017-08-31] MEDS: INSULIN GLARGINE [LANtus] 3 ML PEN SC (20:23)
[2017-08-31] MEDS: ATORVASTATIN 40 MG TAB PO (20:24)
[2017-09-01] MEDS: ACCU-CHEK XX ×2 (01:00→01:01)
[2017-09-01] MEDS: PANTOPRAZOLE (EC) 40 MG TAB PO (05:46)
[2017-09-01] MEDS: MULTIVIT/CA CARB/B CMPLX/FA TAB PO (08:13)
[2017-09-01] MEDS: POTASSIUM CHLORIDE (SR) 20 MEQ TAB PO (08:13)
[2017-09-01] MEDS: ASPIRIN 81 MG TAB PO (08:13)
[2017-09-01] MEDS: LINAGLIPTIN 5 MG TABLET PO (08:13)
[2017-09-01] MEDS: VORICONAZOLE 200 MG TAB PO ×2 (08:13→20:25)
[2017-09-01] MEDS: FUROSEMIDE 40 MG TAB PO (08:14)
[2017-09-01] MEDS: INSULIN ASPART [NOVOLOG] 3 ML PEN SC ×7 (08:15→20:34)
[2017-09-01] MEDS: ISOSORBIDE DINITRATE 20 MG TAB PO ×3 (08:15→20:26)
[2017-09-01] MEDS: NIFEdipine (XL) 30 MG TAB PO (08:15)
[2017-09-01] MEDS: CITRIC ACID/SODIUM CITRATE 15 ML CUP PO ×3 (08:16→20:25)
[2017-09-01] MEDS: SILVER SULFADIAZINE 1% 25 GM CR TOP (08:17)
[2017-09-01] MEDS: CLOTRIMAZOLE 1% 30 GM CR TOP ×2 (08:17→20:27)
[2017-09-01] MEDS: HEPARIN 5,000 UNIT/0.5 ML VIAL SC ×2 (08:22→20:30)
[2017-09-01] MEDS: ATORVASTATIN 40 MG TAB PO (20:26)
[2017-09-01] MEDS: INSULIN GLARGINE [LANtus] 3 ML PEN SC (20:30)
[2017-09-02 00:21] LABS: Allen Test ACCEPTAB; Arterial Base Excess 0 mmol/L (-3.0-3); Arterial Blood Gas Oxygen Sat 99.1 mmHG (95.0-98.0); Arterial COHb 0.2 % (0.0-3.0); Arterial Fraction of Oxyhgb 98.7 % (93.0-99.0); Arterial HCO3 24.5 mmol/L (22.0-26.0); Arterial MetHb 0.2 % (0.0-1.5); Arterial Total Hemglobin 10.5 g/dl (12.0-18.0); Arterial pCO2 39.2 mmhg (35-45); MODE NON-REBREATHING MASK; Site Right Radial
[2017-09-02] MEDS: ACCU-CHEK XX ×2 (02:00)
[2017-09-02 05:18] LABS: ADD MAN DIFF? NO
[2017-09-02 05:36] LABS: BASOPHIL # 0.1 10^3/ul (0.0-0.1); BASOPHILS % 0.4 % (0.0-2.0); EOSINOPHILS # 0.1 10^3/ul (0.0-0.5); EOSINOPHILS % 0.5 % (0.0-7.0); HEMATOCRIT 26.7 % (37.0-47.0); HEMOGLOBIN 8.2 g/dl (12.0-16.0); MEAN CORPUSCULAR HEMOGLOBIN 28.8 pg (29.0-33.0); MEAN CORPUSCULAR HGB CONC 30.7 g/dl (32.0-37.0); MEAN CORPUSCULAR VOLUME 93.7 fl (82.0-101.0); MEAN PLATELET VOLUME 10.1 fl (7.4-10.4); MONOCYTE # 0.7 10^3/ul (0.3-0.9); MONOCYTES % 4.9 % (0.0-11.0); NEUTROPHIL # 12.7 10^3/ul (1.6-7.5); NEUTROPHILS % 86.3 % (39.0-77.0); PLATELET COUNT 306 10^3/UL (140-415); RED BLOOD COUNT 2.85 10^6/ul (4.20-5.40); RED CELL DISTRIBUTION WIDTH 15.9 % (11.5-14.5)
[2017-09-02 05:36] LABS: WHITE BLOOD COUNT 14.7 10^3/ul (4.8-10.8)
[2017-09-02 05:46] LABS: ANION GAP 16 (8-16); BLOOD UREA NITROGEN 48 mg/dl (7-20); CARBON DIOXIDE 28 mmol/L (21-31); CHLORIDE 102 mmol/L (97-110); CREATININE 4.01 mg/dl (0.44-1.00); GLUCOSE 172 mg/dl (70-220); POTASSIUM 4.5 mmol/L (3.5-5.1); SODIUM 141 mmol/L (135-144)
[2017-09-02 05:51] LABS: VANCOMYCIN,RANDOM 22.5 ug/ml
[2017-09-02] MEDS: PANTOPRAZOLE (EC) 40 MG TAB PO (06:03)
[2017-09-02] MEDS: INSULIN ASPART [NOVOLOG] 3 ML PEN SC ×7 (08:29→20:53)
[2017-09-02] MEDS: CLOTRIMAZOLE 1% 30 GM CR TOP ×2 (08:31→20:42)
[2017-09-02] MEDS: SILVER SULFADIAZINE 1% 25 GM CR TOP (08:31)
[2017-09-02] MEDS: CITRIC ACID/SODIUM CITRATE 15 ML CUP PO ×3 (09:00→20:40)
[2017-09-02] MEDS: ASPIRIN 81 MG TAB PO (09:57)
[2017-09-02] MEDS: VORICONAZOLE 200 MG TAB PO ×2 (09:57→20:41)
[2017-09-02] MEDS: POTASSIUM CHLORIDE (SR) 20 MEQ TAB PO (09:58)
[2017-09-02] MEDS: ISOSORBIDE DINITRATE 20 MG TAB PO ×3 (09:58→20:41)
[2017-09-02] MEDS: MULTIVIT/CA CARB/B CMPLX/FA TAB PO (09:58)
[2017-09-02] MEDS: LINAGLIPTIN 5 MG TABLET PO (09:58)
[2017-09-02] MEDS: FUROSEMIDE 40 MG TAB PO (09:58)
[2017-09-02] MEDS: NIFEdipine (XL) 30 MG TAB PO (09:58)
[2017-09-02] MEDS: HEPARIN 5,000 UNIT/0.5 ML VIAL SC ×2 (10:06→20:43)
[2017-09-02] MEDS: EPOETIN 3000 UNITS/1 ML INJ (ESRD) SC (16:44)
[2017-09-02] MEDS ORDERED: VANCOMYCIN 1 GM in NS 250 ML IVPB (17:00)
[2017-09-02] MEDS: ATORVASTATIN 40 MG TAB PO (20:41)
[2017-09-02] MEDS: INSULIN GLARGINE [LANtus] 3 ML PEN SC (20:57)
[2017-09-03] MEDS: ACCU-CHEK XX ×2 (02:00)
[2017-09-03] MEDS: PANTOPRAZOLE (EC) 40 MG TAB PO (06:01)
[2017-09-03] MEDS: SILVER SULFADIAZINE 1% 25 GM CR TOP (07:30)
[2017-09-03] MEDS: INSULIN ASPART [NOVOLOG] 3 ML PEN SC ×7 (07:50→20:36)
[2017-09-03 08:46] LABS: ADD MAN DIFF? NO
[2017-09-03] MEDS: FUROSEMIDE 40 MG TAB PO (08:49)
[2017-09-03] MEDS: POTASSIUM CHLORIDE (SR) 20 MEQ TAB PO (08:49)
[2017-09-03] MEDS: NIFEdipine (XL) 30 MG TAB PO (08:49)
[2017-09-03] MEDS: ASPIRIN 81 MG TAB PO (08:49)
[2017-09-03] MEDS: MULTIVIT/CA CARB/B CMPLX/FA TAB PO (08:49)
[2017-09-03] MEDS: VORICONAZOLE 200 MG TAB PO ×2 (08:49→20:29)
[2017-09-03] MEDS: CITRIC ACID/SODIUM CITRATE 15 ML CUP PO ×3 (08:49→20:37)
[2017-09-03] MEDS: LINAGLIPTIN 5 MG TABLET PO (08:50)
[2017-09-03] MEDS: ISOSORBIDE DINITRATE 20 MG TAB PO ×3 (08:50→20:28)
[2017-09-03 08:55] LABS: BASOPHIL # 0.1 10^3/ul (0.0-0.1); BASOPHILS % 0.5 % (0.0-2.0); EOSINOPHILS # 0.2 10^3/ul (0.0-0.5); EOSINOPHILS % 1.6 % (0.0-7.0); HEMATOCRIT 27.5 % (37.0-47.0); HEMOGLOBIN 8.3 g/dl (12.0-16.0); LYMPHOCYTES # 1.1 10^3/ul (0.8-2.9); LYMPHOCYTES % 10.1 % (15.0-51.0); MEAN CORPUSCULAR HEMOGLOBIN 28.8 pg (29.0-33.0); MEAN CORPUSCULAR HGB CONC 30.2 g/dl (32.0-37.0); MEAN CORPUSCULAR VOLUME 95.5 fl (82.0-101.0); MEAN PLATELET VOLUME 10.1 fl (7.4-10.4); MONOCYTE # 0.6 10^3/ul (0.3-0.9); MONOCYTES % 5.2 % (0.0-11.0); NEUTROPHILS % 81.8 % (39.0-77.0); PLATELET COUNT 281 10^3/UL (140-415); RED BLOOD COUNT 2.88 10^6/ul (4.20-5.40); RED CELL DISTRIBUTION WIDTH 15.8 % (11.5-14.5)
[2017-09-03] MEDS: CLOTRIMAZOLE 1% 30 GM CR TOP ×2 (09:00→21:01)
[2017-09-03 09:22] LABS: ANION GAP 13 (8-16); BLOOD UREA NITROGEN 35 mg/dl (7-20); CALCIUM 8.3 mg/dl (8.4-10.2); CARBON DIOXIDE 31 mmol/L (21-31); CHLORIDE 103 mmol/L (97-110); CREATININE 3.33 mg/dl (0.44-1.00); GLUCOSE 166 mg/dl (70-220); POTASSIUM 3.5 mmol/L (3.5-5.1); SODIUM 143 mmol/L (135-144)
[2017-09-03] MEDS: HEPARIN 5,000 UNIT/0.5 ML VIAL SC ×2 (10:04→20:36)
[2017-09-03] MEDS: VANCOMYCIN 1 GM in NS 250 ML IVPB (17:14)
[2017-09-03] MEDS: ATORVASTATIN 40 MG TAB PO (20:28)
[2017-09-03] MEDS: INSULIN GLARGINE [LANtus] 3 ML PEN SC (20:35)
[2017-09-04] MEDS: ACCU-CHEK XX ×2 (02:00)
[2017-09-04] MEDS: PANTOPRAZOLE (EC) 40 MG TAB PO (05:23)
[2017-09-04] MEDS: INSULIN ASPART [NOVOLOG] 3 ML PEN SC ×7 (07:55→21:00)
[2017-09-04 08:45] LABS: ADD MAN DIFF? NO
[2017-09-04] MEDS: SILVER SULFADIAZINE 1% 25 GM CR TOP (09:00)
[2017-09-04] MEDS: NIFEdipine (XL) 30 MG TAB PO (09:00)
[2017-09-04] MEDS: ISOSORBIDE DINITRATE 20 MG TAB PO ×3 (09:00→20:22)
[2017-09-04 09:03] LABS: BASOPHIL # 0.1 10^3/ul (0.0-0.1); BASOPHILS % 0.5 % (0.0-2.0); EOSINOPHILS # 0.2 10^3/ul (0.0-0.5); EOSINOPHILS % 1.9 % (0.0-7.0); HEMATOCRIT 25.9 % (37.0-47.0); HEMOGLOBIN 7.9 g/dl (12.0-16.0); LYMPHOCYTES % 8.8 % (15.0-51.0); MEAN CORPUSCULAR HGB CONC 30.5 g/dl (32.0-37.0); MEAN CORPUSCULAR VOLUME 95.2 fl (82.0-101.0); MEAN PLATELET VOLUME 10.1 fl (7.4-10.4); MONOCYTE # 0.8 10^3/ul (0.3-0.9); MONOCYTES % 7.2 % (0.0-11.0); NEUTROPHIL # 9.1 10^3/ul (1.6-7.5); NEUTROPHILS % 80.7 % (39.0-77.0); PLATELET COUNT 282 10^3/UL (140-415); RED BLOOD COUNT 2.72 10^6/ul (4.20-5.40); RED CELL DISTRIBUTION WIDTH 15.9 % (11.5-14.5)
[2017-09-04 09:03] LABS: WHITE BLOOD COUNT 11.3 10^3/ul (4.8-10.8)
[2017-09-04 09:10] LABS: ANION GAP 12 (8-16); BLOOD UREA NITROGEN 42 mg/dl (7-20); CALCIUM 8.5 mg/dl (8.4-10.2); CARBON DIOXIDE 30 mmol/L (21-31); CHLORIDE 103 mmol/L (97-110); CREATININE 3.58 mg/dl (0.44-1.00); GLUCOSE 109 mg/dl (70-220); POTASSIUM 3.4 mmol/L (3.5-5.1); SODIUM 142 mmol/L (135-144)
[2017-09-04] MEDS: ASPIRIN 81 MG TAB PO (09:18)
[2017-09-04] MEDS: POTASSIUM CHLORIDE (SR) 20 MEQ TAB PO (09:19)
[2017-09-04] MEDS: CITRIC ACID/SODIUM CITRATE 15 ML CUP PO ×3 (09:19→21:00)
[2017-09-04] MEDS: MULTIVIT/CA CARB/B CMPLX/FA TAB PO (09:20)
[2017-09-04] MEDS: FUROSEMIDE 40 MG TAB PO (09:20)
[2017-09-04] MEDS: LINAGLIPTIN 5 MG TABLET PO (09:20)
[2017-09-04] MEDS: VORICONAZOLE 200 MG TAB PO ×2 (09:20→20:21)
[2017-09-04] MEDS: CLOTRIMAZOLE 1% 30 GM CR TOP ×2 (09:21→20:22)
[2017-09-04] MEDS: HEPARIN 5,000 UNIT/0.5 ML VIAL SC ×2 (09:32→20:26)
[2017-09-04 13:31] LABS: HEPATITIS B SURFACE ANTIBODY NEGATIVE (NEGATIVE)
[2017-09-04] MEDS: EPOETIN 3000 UNITS/1 ML INJ (ESRD) SC (17:18)
[2017-09-04] MEDS: ATORVASTATIN 40 MG TAB PO (20:21)
[2017-09-04] MEDS: INSULIN GLARGINE [LANtus] 3 ML PEN SC (20:36)
[2017-09-05] MEDS: ACCU-CHEK XX ×2 (02:00)
[2017-09-05] MEDS: PANTOPRAZOLE (EC) 40 MG TAB PO (05:08)
[2017-09-05 07:22] LABS: ADD MAN DIFF? NO
[2017-09-05 07:28] LABS: WHITE BLOOD COUNT 11.5 10^3/ul (4.8-10.8)
[2017-09-05 07:28] LABS: BASOPHIL # 0.1 10^3/ul (0.0-0.1); BASOPHILS % 0.5 % (0.0-2.0); EOSINOPHILS # 0.2 10^3/ul (0.0-0.5); EOSINOPHILS % 1.8 % (0.0-7.0); HEMATOCRIT 26.5 % (37.0-47.0); LYMPHOCYTES % 8.5 % (15.0-51.0); MEAN CORPUSCULAR HEMOGLOBIN 29.1 pg (29.0-33.0); MEAN CORPUSCULAR HGB CONC 30.2 g/dl (32.0-37.0); MEAN CORPUSCULAR VOLUME 96.4 fl (82.0-101.0); MEAN PLATELET VOLUME 10.2 fl (7.4-10.4); MONOCYTE # 0.9 10^3/ul (0.3-0.9); MONOCYTES % 7.4 % (0.0-11.0); NEUTROPHIL # 9.3 10^3/ul (1.6-7.5); NEUTROPHILS % 81.2 % (39.0-77.0); PLATELET COUNT 284 10^3/UL (140-415); RED BLOOD COUNT 2.75 10^6/ul (4.20-5.40); RED CELL DISTRIBUTION WIDTH 15.9 % (11.5-14.5)
[2017-09-05 08:06] LABS: ANION GAP 12 (8-16); BLOOD UREA NITROGEN 32 mg/dl (7-20); CALCIUM 8.1 mg/dl (8.4-10.2); CARBON DIOXIDE 30 mmol/L (21-31); CHLORIDE 105 mmol/L (97-110); CREATININE 3.08 mg/dl (0.44-1.00); GLUCOSE 180 mg/dl (70-220); POTASSIUM 3.2 mmol/L (3.5-5.1); SODIUM 144 mmol/L (135-144)
[2017-09-05] MEDS: LINAGLIPTIN 5 MG TABLET PO (08:33)
[2017-09-05] MEDS: POTASSIUM CHLORIDE (SR) 20 MEQ TAB PO (08:33)
[2017-09-05] MEDS: ASPIRIN 81 MG TAB PO (08:33)
[2017-09-05] MEDS: VORICONAZOLE 200 MG TAB PO ×2 (08:33→21:56)
[2017-09-05] MEDS: CITRIC ACID/SODIUM CITRATE 15 ML CUP PO ×3 (08:33→21:56)
[2017-09-05] MEDS: MULTIVIT/CA CARB/B CMPLX/FA TAB PO (08:33)
[2017-09-05] MEDS: FUROSEMIDE 40 MG TAB PO (08:34)
[2017-09-05] MEDS: ISOSORBIDE DINITRATE 20 MG TAB PO ×3 (08:34→21:57)
[2017-09-05] MEDS: NIFEdipine (XL) 30 MG TAB PO (08:34)
[2017-09-05] MEDS: CLOTRIMAZOLE 1% 30 GM CR TOP ×2 (08:35→22:07)
[2017-09-05] MEDS: SILVER SULFADIAZINE 1% 25 GM CR TOP (08:35)
[2017-09-05] MEDS: INSULIN ASPART [NOVOLOG] 3 ML PEN SC ×7 (08:37→22:05)
[2017-09-05] MEDS: HEPARIN 5,000 UNIT/0.5 ML VIAL SC ×2 (08:39→22:00)
[2017-09-05] MEDS: ERGOCALCIFEROL 50,000 UNIT CAP PO (08:39)
[2017-09-05] MEDS: POTASSIUM CHLORIDE (SR) 10 MEQ TAB PO (12:59)
[2017-09-05] MEDS: ATORVASTATIN 40 MG TAB PO (21:56)
[2017-09-05] MEDS: INSULIN GLARGINE [LANtus] 3 ML PEN SC (22:10)
[2017-09-06] MEDS: ACCU-CHEK XX ×2 (02:00→23:27)
[2017-09-06 06:05] LABS: ADD MAN DIFF? NO
[2017-09-06] MEDS: PANTOPRAZOLE (EC) 40 MG TAB PO (06:07)
[2017-09-06 06:11] LABS: BASOPHIL # 0.1 10^3/ul (0.0-0.1); BASOPHILS % 0.6 % (0.0-2.0); EOSINOPHILS # 0.2 10^3/ul (0.0-0.5); EOSINOPHILS % 1.4 % (0.0-7.0); HEMATOCRIT 26.2 % (37.0-47.0); LYMPHOCYTES # 1.2 10^3/ul (0.8-2.9); LYMPHOCYTES % 9.4 % (15.0-51.0); MEAN CORPUSCULAR HEMOGLOBIN 29.2 pg (29.0-33.0); MEAN CORPUSCULAR HGB CONC 30.5 g/dl (32.0-37.0); MEAN CORPUSCULAR VOLUME 95.6 fl (82.0-101.0); MEAN PLATELET VOLUME 10.2 fl (7.4-10.4); MONOCYTE # 0.8 10^3/ul (0.3-0.9); MONOCYTES % 6.5 % (0.0-11.0); NEUTROPHIL # 10.1 10^3/ul (1.6-7.5); NEUTROPHILS % 81.1 % (39.0-77.0); PLATELET COUNT 301 10^3/UL (140-415); RED BLOOD COUNT 2.74 10^6/ul (4.20-5.40); RED CELL DISTRIBUTION WIDTH 15.9 % (11.5-14.5)
[2017-09-06 06:11] LABS: WHITE BLOOD COUNT 12.5 10^3/ul (4.8-10.8)
[2017-09-06 07:01] LABS: ANION GAP 15 (8-16); BLOOD UREA NITROGEN 42 mg/dl (7-20); CALCIUM 8.4 mg/dl (8.4-10.2); CARBON DIOXIDE 28 mmol/L (21-31); CHLORIDE 104 mmol/L (97-110); CREATININE 3.63 mg/dl (0.44-1.00); GLUCOSE 129 mg/dl (70-220); POTASSIUM 3.6 mmol/L (3.5-5.1); SODIUM 143 mmol/L (135-144)
[2017-09-06] MEDS: INSULIN ASPART [NOVOLOG] 3 ML PEN SC ×7 (07:55→21:00)
[2017-09-06] MEDS: ISOSORBIDE DINITRATE 20 MG TAB PO ×3 (08:41→21:24)
[2017-09-06] MEDS: NIFEdipine (XL) 30 MG TAB PO (08:41)
[2017-09-06] MEDS: POTASSIUM CHLORIDE (SR) 20 MEQ TAB PO (08:53)
[2017-09-06] MEDS: ASPIRIN 81 MG TAB PO (08:53)
[2017-09-06] MEDS: LINAGLIPTIN 5 MG TABLET PO (08:53)
[2017-09-06] MEDS: MULTIVIT/CA CARB/B CMPLX/FA TAB PO (08:54)
[2017-09-06] MEDS: CITRIC ACID/SODIUM CITRATE 15 ML CUP PO ×3 (08:54→23:27)
[2017-09-06] MEDS: SILVER SULFADIAZINE 1% 25 GM CR TOP (08:54)
[2017-09-06] MEDS: CLOTRIMAZOLE 1% 30 GM CR TOP ×2 (08:55→21:31)
[2017-09-06] MEDS: HEPARIN 5,000 UNIT/0.5 ML VIAL SC ×2 (08:58→21:26)
[2017-09-06] MEDS: FUROSEMIDE 40 MG TAB PO (09:01)
[2017-09-06] MEDS: EPOETIN 3000 UNITS/1 ML INJ (ESRD) SC (17:35)
[2017-09-06] MEDS: ATORVASTATIN 40 MG TAB PO (21:24)
[2017-09-06] MEDS: INSULIN GLARGINE [LANtus] 3 ML PEN SC (21:42)
[2017-09-07] MEDS: PANTOPRAZOLE (EC) 40 MG TAB PO (05:03)
[2017-09-07] MEDS: INSULIN ASPART [NOVOLOG] 3 ML PEN SC ×7 (07:55→21:00)
[2017-09-07 08:17] LABS: ADD MAN DIFF? NO
[2017-09-07 08:23] LABS: WHITE BLOOD COUNT 12.2 10^3/ul (4.8-10.8)
[2017-09-07 08:23] LABS: BASOPHIL # 0.1 10^3/ul (0.0-0.1); BASOPHILS % 0.5 % (0.0-2.0); EOSINOPHILS # 0.2 10^3/ul (0.0-0.5); EOSINOPHILS % 1.7 % (0.0-7.0); HEMATOCRIT 25.9 % (37.0-47.0); HEMOGLOBIN 7.9 g/dl (12.0-16.0); LYMPHOCYTES # 1.3 10^3/ul (0.8-2.9); LYMPHOCYTES % 10.4 % (15.0-51.0); MEAN CORPUSCULAR HEMOGLOBIN 28.6 pg (29.0-33.0); MEAN CORPUSCULAR HGB CONC 30.5 g/dl (32.0-37.0); MEAN CORPUSCULAR VOLUME 93.8 fl (82.0-101.0); MEAN PLATELET VOLUME 10.4 fl (7.4-10.4); MONOCYTE # 0.9 10^3/ul (0.3-0.9); MONOCYTES % 7.7 % (0.0-11.0); NEUTROPHIL # 9.6 10^3/ul (1.6-7.5); NEUTROPHILS % 78.8 % (39.0-77.0); PLATELET COUNT 294 10^3/UL (140-415); RED BLOOD COUNT 2.76 10^6/ul (4.20-5.40); RED CELL DISTRIBUTION WIDTH 15.8 % (11.5-14.5)
[2017-09-07 08:44] LABS: ANION GAP 12 (8-16); BLOOD UREA NITROGEN 36 mg/dl (7-20); CALCIUM 8.5 mg/dl (8.4-10.2); CARBON DIOXIDE 31 mmol/L (21-31); CHLORIDE 101 mmol/L (97-110); CREATININE 3.25 mg/dl (0.44-1.00); GLUCOSE 138 mg/dl (70-220); POTASSIUM 3.6 mmol/L (3.5-5.1); SODIUM 140 mmol/L (135-144)
[2017-09-07] MEDS: POTASSIUM CHLORIDE (SR) 20 MEQ TAB PO (09:00)
[2017-09-07] MEDS: CITRIC ACID/SODIUM CITRATE 15 ML CUP PO ×3 (09:00→21:46)
[2017-09-07] MEDS: LINAGLIPTIN 5 MG TABLET PO (09:00)
[2017-09-07] MEDS: MULTIVIT/CA CARB/B CMPLX/FA TAB PO (09:00)
[2017-09-07] MEDS: FUROSEMIDE 40 MG TAB PO (09:01)
[2017-09-07] MEDS: ASPIRIN 81 MG TAB PO (09:02)
[2017-09-07] MEDS: ISOSORBIDE DINITRATE 20 MG TAB PO ×3 (09:02→21:47)
[2017-09-07] MEDS: CLOTRIMAZOLE 1% 30 GM CR TOP ×2 (09:02→21:55)
[2017-09-07] MEDS: NIFEdipine (XL) 30 MG TAB PO (09:02)
[2017-09-07] MEDS: SILVER SULFADIAZINE 1% 25 GM CR TOP (09:03)
[2017-09-07] MEDS: HEPARIN 5,000 UNIT/0.5 ML VIAL SC ×2 (09:07→21:54)
[2017-09-07] MEDS: ACETAMINOPHEN 325 MG TAB PO (09:13)
[2017-09-07] MEDS: ATORVASTATIN 40 MG TAB PO (21:47)
[2017-09-07] MEDS: INSULIN GLARGINE [LANtus] 3 ML PEN SC (21:50)
[2017-09-08] MEDS: ACCU-CHEK XX (02:00)
[2017-09-08] MEDS: PANTOPRAZOLE (EC) 40 MG TAB PO (06:33)
[2017-09-08 06:36] LABS: ADD MAN DIFF? NO
[2017-09-08 06:48] LABS: WHITE BLOOD COUNT 13.6 10^3/ul (4.8-10.8)
[2017-09-08 06:48] LABS: BASOPHIL # 0.1 10^3/ul (0.0-0.1); BASOPHILS % 0.5 % (0.0-2.0); EOSINOPHILS # 0.2 10^3/ul (0.0-0.5); EOSINOPHILS % 1.3 % (0.0-7.0); HEMATOCRIT 25.3 % (37.0-47.0); HEMOGLOBIN 7.8 g/dl (12.0-16.0); LYMPHOCYTES % 7.3 % (15.0-51.0); MEAN CORPUSCULAR HGB CONC 30.8 g/dl (32.0-37.0); MEAN CORPUSCULAR VOLUME 94.1 fl (82.0-101.0); MEAN PLATELET VOLUME 10.3 fl (7.4-10.4); MONOCYTE # 0.9 10^3/ul (0.3-0.9); MONOCYTES % 6.3 % (0.0-11.0); NEUTROPHIL # 11.3 10^3/ul (1.6-7.5); NEUTROPHILS % 83.6 % (39.0-77.0); PLATELET COUNT 328 10^3/UL (140-415); RED BLOOD COUNT 2.69 10^6/ul (4.20-5.40); RED CELL DISTRIBUTION WIDTH 15.9 % (11.5-14.5)
[2017-09-08 06:55] LABS: ANION GAP 16 (8-16); BLOOD UREA NITROGEN 45 mg/dl (7-20); CALCIUM 8.6 mg/dl (8.4-10.2); CARBON DIOXIDE 29 mmol/L (21-31); CHLORIDE 100 mmol/L (97-110); CREATININE 3.79 mg/dl (0.44-1.00); GLUCOSE 163 mg/dl (70-220); POTASSIUM 3.9 mmol/L (3.5-5.1); SODIUM 141 mmol/L (135-144)
[2017-09-08] MEDS: NIFEdipine (XL) 30 MG TAB PO (08:05)
[2017-09-08] MEDS: ISOSORBIDE DINITRATE 20 MG TAB PO ×3 (08:05→21:00)
[2017-09-08] MEDS: FUROSEMIDE 40 MG TAB PO (08:05)
[2017-09-08] MEDS: ASPIRIN 81 MG TAB PO (08:20)
[2017-09-08] MEDS: POTASSIUM CHLORIDE (SR) 20 MEQ TAB PO (08:20)
[2017-09-08] MEDS: MULTIVIT/CA CARB/B CMPLX/FA TAB PO (08:20)
[2017-09-08] MEDS: SILVER SULFADIAZINE 1% 25 GM CR TOP (08:20)
[2017-09-08] MEDS: LINAGLIPTIN 5 MG TABLET PO (08:20)
[2017-09-08] MEDS: CLOTRIMAZOLE 1% 30 GM CR TOP ×2 (08:20→21:00)
[2017-09-08] MEDS: CITRIC ACID/SODIUM CITRATE 15 ML CUP PO ×3 (08:20→21:00)
[2017-09-08] MEDS: HEPARIN 5,000 UNIT/0.5 ML VIAL SC ×2 (08:22→21:00)
[2017-09-08] MEDS: INSULIN ASPART [NOVOLOG] 3 ML PEN SC ×7 (08:23→21:00)
[2017-09-08] MEDS: INSULIN GLARGINE [LANtus] 3 ML PEN SC (20:00)
[2017-09-08] MEDS: ATORVASTATIN 40 MG TAB PO (21:00)
[2017-09-09] MEDS: ZOLPIDEM 5 MG TAB PO (00:58)
[2017-09-09] MEDS: ACCU-CHEK XX (02:00)
[2017-09-09 05:59] LABS: ADD MAN DIFF? NO
[2017-09-09] MEDS: PANTOPRAZOLE (EC) 40 MG TAB PO (06:09)
[2017-09-09 06:10] LABS: BASOPHIL # 0.1 10^3/ul (0.0-0.1); BASOPHILS % 0.5 % (0.0-2.0); EOSINOPHILS # 0.2 10^3/ul (0.0-0.5); EOSINOPHILS % 1.8 % (0.0-7.0); HEMATOCRIT 24.7 % (37.0-47.0); HEMOGLOBIN 7.7 g/dl (12.0-16.0); LYMPHOCYTES # 1.3 10^3/ul (0.8-2.9); LYMPHOCYTES % 10.1 % (15.0-51.0); MEAN CORPUSCULAR HEMOGLOBIN 29.2 pg (29.0-33.0); MEAN CORPUSCULAR HGB CONC 31.2 g/dl (32.0-37.0); MEAN CORPUSCULAR VOLUME 93.6 fl (82.0-101.0); MEAN PLATELET VOLUME 10.2 fl (7.4-10.4); MONOCYTE # 1.1 10^3/ul (0.3-0.9); NEUTROPHIL # 10.3 10^3/ul (1.6-7.5); NEUTROPHILS % 78.7 % (39.0-77.0); PLATELET COUNT 322 10^3/UL (140-415); RED BLOOD COUNT 2.64 10^6/ul (4.20-5.40); RED CELL DISTRIBUTION WIDTH 15.9 % (11.5-14.5)
[2017-09-09 06:10] LABS: WHITE BLOOD COUNT 13.1 10^3/ul (4.8-10.8)
[2017-09-09 06:45] LABS: ANION GAP 12 (8-16); BLOOD UREA NITROGEN 37 mg/dl (7-20); CALCIUM 8.3 mg/dl (8.4-10.2); CARBON DIOXIDE 33 mmol/L (21-31); CHLORIDE 100 mmol/L (97-110); CREATININE 3.36 mg/dl (0.44-1.00); GLUCOSE 136 mg/dl (70-220); POTASSIUM 3.7 mmol/L (3.5-5.1); SODIUM 141 mmol/L (135-144)
[2017-09-09] MEDS: INSULIN ASPART [NOVOLOG] 3 ML PEN SC ×7 (07:55→21:00)
[2017-09-09] MEDS: CITRIC ACID/SODIUM CITRATE 15 ML CUP PO ×2 (09:26→12:33)
[2017-09-09] MEDS: ASPIRIN 81 MG TAB PO (09:27)
[2017-09-09] MEDS: LINAGLIPTIN 5 MG TABLET PO (09:27)
[2017-09-09] MEDS: FUROSEMIDE 40 MG TAB PO (09:27)
[2017-09-09] MEDS: ISOSORBIDE DINITRATE 20 MG TAB PO ×3 (09:27→21:15)
[2017-09-09] MEDS: POTASSIUM CHLORIDE (SR) 20 MEQ TAB PO (09:27)
[2017-09-09] MEDS: CLOTRIMAZOLE 1% 30 GM CR TOP ×2 (09:27→21:16)
[2017-09-09] MEDS: MULTIVIT/CA CARB/B CMPLX/FA TAB PO (09:27)
[2017-09-09] MEDS: NIFEdipine (XL) 30 MG TAB PO ×2 (09:27→21:14)
[2017-09-09] MEDS: SILVER SULFADIAZINE 1% 25 GM CR TOP (09:28)
[2017-09-09] MEDS: HEPARIN 5,000 UNIT/0.5 ML VIAL SC ×2 (11:44→21:23)
[2017-09-09] MEDS: EPOETIN 3000 UNITS/1 ML INJ (ESRD) SC (17:40)
[2017-09-09] MEDS: INSULIN GLARGINE [LANtus] 3 ML PEN SC (21:00)
[2017-09-09] MEDS: ATORVASTATIN 40 MG TAB PO (21:13)
[2017-09-10] MEDS: CITRIC ACID/SODIUM CITRATE 15 ML CUP PO ×4 (00:36→20:15)
[2017-09-10] MEDS: ACCU-CHEK XX (02:00)
[2017-09-10] MEDS: ZOLPIDEM 5 MG TAB PO (03:39)
[2017-09-10] MEDS: PANTOPRAZOLE (EC) 40 MG TAB PO (06:56)
[2017-09-10 07:55] LABS: ADD MAN DIFF? NO
[2017-09-10] MEDS: INSULIN ASPART [NOVOLOG] 3 ML PEN SC ×7 (07:55→20:19)
[2017-09-10 07:59] LABS: BASOPHIL # 0.1 10^3/ul (0.0-0.1); BASOPHILS % 0.5 % (0.0-2.0); EOSINOPHILS # 0.2 10^3/ul (0.0-0.5); EOSINOPHILS % 1.8 % (0.0-7.0); HEMATOCRIT 24.9 % (37.0-47.0); HEMOGLOBIN 7.8 g/dl (12.0-16.0); LYMPHOCYTES # 1.3 10^3/ul (0.8-2.9); LYMPHOCYTES % 10.7 % (15.0-51.0); MEAN CORPUSCULAR HEMOGLOBIN 29.4 pg (29.0-33.0); MEAN CORPUSCULAR HGB CONC 31.3 g/dl (32.0-37.0); MEAN PLATELET VOLUME 10.4 fl (7.4-10.4); MONOCYTE # 0.9 10^3/ul (0.3-0.9); MONOCYTES % 7.4 % (0.0-11.0); NEUTROPHIL # 9.4 10^3/ul (1.6-7.5); NEUTROPHILS % 78.5 % (39.0-77.0); PLATELET COUNT 336 10^3/UL (140-415); RED BLOOD COUNT 2.65 10^6/ul (4.20-5.40); RED CELL DISTRIBUTION WIDTH 16.2 % (11.5-14.5)
[2017-09-10 08:17] LABS: ANION GAP 13 (8-16); BLOOD UREA NITROGEN 46 mg/dl (7-20); CALCIUM 8.4 mg/dl (8.4-10.2); CARBON DIOXIDE 32 mmol/L (21-31); CHLORIDE 100 mmol/L (97-110); CREATININE 4.03 mg/dl (0.44-1.00); GLUCOSE 135 mg/dl (70-220); POTASSIUM 4.2 mmol/L (3.5-5.1); SODIUM 141 mmol/L (135-144)
[2017-09-10] MEDS: ASPIRIN 81 MG TAB PO (09:44)
[2017-09-10] MEDS: ISOSORBIDE DINITRATE 20 MG TAB PO ×3 (09:44→20:19)
[2017-09-10] MEDS: POTASSIUM CHLORIDE (SR) 20 MEQ TAB PO (09:45)
[2017-09-10] MEDS: MULTIVIT/CA CARB/B CMPLX/FA TAB PO (09:46)
[2017-09-10] MEDS: FUROSEMIDE 40 MG TAB PO (09:46)
[2017-09-10] MEDS: NIFEdipine (XL) 30 MG TAB PO ×2 (09:46→20:18)
[2017-09-10] MEDS: LINAGLIPTIN 5 MG TABLET PO (09:46)
[2017-09-10] MEDS: CLOTRIMAZOLE 1% 30 GM CR TOP ×2 (09:47→20:24)
[2017-09-10] MEDS: SILVER SULFADIAZINE 1% 25 GM CR TOP (09:47)
[2017-09-10] MEDS: HEPARIN 5,000 UNIT/0.5 ML VIAL SC ×2 (09:52→20:13)
[2017-09-10] MEDS: INSULIN GLARGINE [LANtus] 3 ML PEN SC (20:12)
[2017-09-10] MEDS: ATORVASTATIN 40 MG TAB PO (20:19)
[2017-09-11] MEDS: ACCU-CHEK XX (01:56)
[2017-09-11] MEDS: PANTOPRAZOLE (EC) 40 MG TAB PO (06:15)
[2017-09-11] MEDS: INSULIN ASPART [NOVOLOG] 3 ML PEN SC ×7 (07:53→21:00)
[2017-09-11 09:06] LABS: ADD MAN DIFF? NO
[2017-09-11 09:13] LABS: WHITE BLOOD COUNT 12.7 10^3/ul (4.8-10.8)
[2017-09-11 09:13] LABS: BASOPHIL # 0.1 10^3/ul (0.0-0.1); BASOPHILS % 0.5 % (0.0-2.0); EOSINOPHILS # 0.2 10^3/ul (0.0-0.5); EOSINOPHILS % 1.7 % (0.0-7.0); HEMATOCRIT 24.9 % (37.0-47.0); HEMOGLOBIN 7.7 g/dl (12.0-16.0); LYMPHOCYTES # 1.3 10^3/ul (0.8-2.9); LYMPHOCYTES % 10.1 % (15.0-51.0); MEAN CORPUSCULAR HEMOGLOBIN 29.1 pg (29.0-33.0); MEAN CORPUSCULAR HGB CONC 30.9 g/dl (32.0-37.0); MEAN PLATELET VOLUME 10.4 fl (7.4-10.4); MONOCYTES % 7.7 % (0.0-11.0); NEUTROPHIL # 10.1 10^3/ul (1.6-7.5); NEUTROPHILS % 79.1 % (39.0-77.0); PLATELET COUNT 357 10^3/UL (140-415); RED BLOOD COUNT 2.65 10^6/ul (4.20-5.40); RED CELL DISTRIBUTION WIDTH 16.3 % (11.5-14.5)
[2017-09-11] MEDS: ISOSORBIDE DINITRATE 20 MG TAB PO ×3 (09:32→21:40)
[2017-09-11 09:33] LABS: ANION GAP 14 (8-16); BLOOD UREA NITROGEN 53 mg/dl (7-20); CALCIUM 8.8 mg/dl (8.4-10.2); CARBON DIOXIDE 32 mmol/L (21-31); CHLORIDE 98 mmol/L (97-110); CREATININE 4.45 mg/dl (0.44-1.00); GLUCOSE 108 mg/dl (70-220); POTASSIUM 4.7 mmol/L (3.5-5.1); SODIUM 139 mmol/L (135-144)
[2017-09-11] MEDS: NIFEdipine (XL) 30 MG TAB PO ×2 (09:33→21:53)
[2017-09-11] MEDS: POTASSIUM CHLORIDE (SR) 20 MEQ TAB PO (09:33)
[2017-09-11] MEDS: FUROSEMIDE 40 MG TAB PO (09:34)
[2017-09-11] MEDS: LINAGLIPTIN 5 MG TABLET PO (09:35)
[2017-09-11] MEDS: CITRIC ACID/SODIUM CITRATE 15 ML CUP PO ×3 (09:35→21:43)
[2017-09-11] MEDS: ASPIRIN 81 MG TAB PO (09:35)
[2017-09-11] MEDS: SILVER SULFADIAZINE 1% 25 GM CR TOP (09:38)
[2017-09-11] MEDS: CLOTRIMAZOLE 1% 30 GM CR TOP ×2 (09:39→21:00)
[2017-09-11] MEDS: HEPARIN 5,000 UNIT/0.5 ML VIAL SC ×2 (09:44→21:51)
[2017-09-11] MEDS: MULTIVIT/CA CARB/B CMPLX/FA TAB PO (11:50)
[2017-09-11] MEDS: ATORVASTATIN 40 MG TAB PO (21:40)
[2017-09-11] MEDS: INSULIN GLARGINE [LANtus] 3 ML PEN SC (21:52)
[2017-09-12] MEDS: EPOETIN 3000 UNITS/1 ML INJ (ESRD) SC (00:21)
[2017-09-12] MEDS: ACCU-CHEK XX (02:00)
[2017-09-12] MEDS: PANTOPRAZOLE (EC) 40 MG TAB PO (06:51)
[2017-09-12] MEDS: INSULIN ASPART [NOVOLOG] 3 ML PEN SC ×7 (07:53→20:43)
[2017-09-12] MEDS: ASPIRIN 81 MG TAB PO (08:54)
[2017-09-12] MEDS: FUROSEMIDE 40 MG TAB PO (08:54)
[2017-09-12] MEDS: NIFEdipine (XL) 30 MG TAB PO ×2 (08:55→20:42)
[2017-09-12] MEDS: MULTIVIT/CA CARB/B CMPLX/FA TAB PO (08:55)
[2017-09-12] MEDS: LINAGLIPTIN 5 MG TABLET PO (08:55)
[2017-09-12] MEDS: ISOSORBIDE DINITRATE 20 MG TAB PO ×3 (08:56→20:43)
[2017-09-12] MEDS: CITRIC ACID/SODIUM CITRATE 15 ML CUP PO ×3 (08:57→22:54)
[2017-09-12] MEDS: POTASSIUM CHLORIDE (SR) 20 MEQ TAB PO (08:57)
[2017-09-12] MEDS: SILVER SULFADIAZINE 1% 25 GM CR TOP (08:58)
[2017-09-12] MEDS: CLOTRIMAZOLE 1% 30 GM CR TOP ×2 (08:59→20:44)
[2017-09-12] MEDS: HEPARIN 5,000 UNIT/0.5 ML VIAL SC ×2 (09:08→20:48)
[2017-09-12] MEDS: ERGOCALCIFEROL 50,000 UNIT CAP PO (12:17)
[2017-09-12] MEDS: ATORVASTATIN 40 MG TAB PO (20:42)
[2017-09-12] MEDS: INSULIN GLARGINE [LANtus] 3 ML PEN SC (20:49)
[2017-09-13] MEDS: ACCU-CHEK XX (01:57)
[2017-09-13] MEDS: PANTOPRAZOLE (EC) 40 MG TAB PO (06:45)
[2017-09-13] MEDS: INSULIN ASPART [NOVOLOG] 3 ML PEN SC ×7 (08:19→22:35)
[2017-09-13 08:47] LABS: ADD MAN DIFF? NO
[2017-09-13 08:57] LABS: BASOPHIL # 0.1 10^3/ul (0.0-0.1); BASOPHILS % 0.5 % (0.0-2.0); EOSINOPHILS # 0.2 10^3/ul (0.0-0.5); EOSINOPHILS % 1.4 % (0.0-7.0); HEMATOCRIT 25.2 % (37.0-47.0); HEMOGLOBIN 7.7 g/dl (12.0-16.0); LYMPHOCYTES # 1.2 10^3/ul (0.8-2.9); LYMPHOCYTES % 9.1 % (15.0-51.0); MEAN CORPUSCULAR HEMOGLOBIN 29.3 pg (29.0-33.0); MEAN CORPUSCULAR HGB CONC 30.6 g/dl (32.0-37.0); MEAN CORPUSCULAR VOLUME 95.8 fl (82.0-101.0); MEAN PLATELET VOLUME 10.7 fl (7.4-10.4); MONOCYTES % 7.4 % (0.0-11.0); NEUTROPHIL # 10.6 10^3/ul (1.6-7.5); NEUTROPHILS % 80.8 % (39.0-77.0); PLATELET COUNT 366 10^3/UL (140-415); RED BLOOD COUNT 2.63 10^6/ul (4.20-5.40)
[2017-09-13 08:57] LABS: WHITE BLOOD COUNT 13.1 10^3/ul (4.8-10.8)
[2017-09-13 09:39] LABS: ANION GAP 13 (8-16); BLOOD UREA NITROGEN 48 mg/dl (7-20); CALCIUM 8.6 mg/dl (8.4-10.2); CARBON DIOXIDE 33 mmol/L (21-31); CHLORIDE 98 mmol/L (97-110); CREATININE 3.76 mg/dl (0.44-1.00); GLUCOSE 143 mg/dl (70-220); POTASSIUM 4.3 mmol/L (3.5-5.1); SODIUM 140 mmol/L (135-144)
[2017-09-13] MEDS: ASPIRIN 81 MG TAB PO (09:43)
[2017-09-13] MEDS: FUROSEMIDE 40 MG TAB PO (09:44)
[2017-09-13] MEDS: MULTIVIT/CA CARB/B CMPLX/FA TAB PO (09:44)
[2017-09-13] MEDS: LINAGLIPTIN 5 MG TABLET PO (09:44)
[2017-09-13] MEDS: CITRIC ACID/SODIUM CITRATE 15 ML CUP PO ×3 (09:44→22:17)
[2017-09-13] MEDS: ISOSORBIDE DINITRATE 20 MG TAB PO ×3 (09:45→22:18)
[2017-09-13] MEDS: POTASSIUM CHLORIDE (SR) 20 MEQ TAB PO (09:47)
[2017-09-13] MEDS: NIFEdipine (XL) 30 MG TAB PO ×2 (09:49→22:18)
[2017-09-13] MEDS: HEPARIN 5,000 UNIT/0.5 ML VIAL SC ×2 (09:56→22:36)
[2017-09-13] MEDS: SILVER SULFADIAZINE 1% 25 GM CR TOP (12:52)
[2017-09-13] MEDS: CLOTRIMAZOLE 1% 30 GM CR TOP ×2 (12:52→22:17)
[2017-09-13] MEDS: EPOETIN 3000 UNITS/1 ML INJ (ESRD) SC (16:55)
[2017-09-13] MEDS: ATORVASTATIN 40 MG TAB PO (22:17)
[2017-09-13] MEDS: INSULIN GLARGINE [LANtus] 3 ML PEN SC (22:35)
[2017-09-14] MEDS: ACCU-CHEK XX (02:00)
[2017-09-14] MEDS: PANTOPRAZOLE (EC) 40 MG TAB PO (05:36)
[2017-09-14 07:25] LABS: ADD MAN DIFF? NO
[2017-09-14 07:33] LABS: BASOPHIL # 0.1 10^3/ul (0.0-0.1); BASOPHILS % 0.5 % (0.0-2.0); EOSINOPHILS # 0.2 10^3/ul (0.0-0.5); EOSINOPHILS % 1.6 % (0.0-7.0); HEMATOCRIT 24.9 % (37.0-47.0); HEMOGLOBIN 7.6 g/dl (12.0-16.0); LYMPHOCYTES # 1.2 10^3/ul (0.8-2.9); LYMPHOCYTES % 8.9 % (15.0-51.0); MEAN CORPUSCULAR HEMOGLOBIN 29.1 pg (29.0-33.0); MEAN CORPUSCULAR HGB CONC 30.5 g/dl (32.0-37.0); MEAN CORPUSCULAR VOLUME 95.4 fl (82.0-101.0); MEAN PLATELET VOLUME 10.5 fl (7.4-10.4); MONOCYTE # 1.1 10^3/ul (0.3-0.9); NEUTROPHIL # 10.8 10^3/ul (1.6-7.5); PLATELET COUNT 366 10^3/UL (140-415); RED BLOOD COUNT 2.61 10^6/ul (4.20-5.40); RED CELL DISTRIBUTION WIDTH 15.9 % (11.5-14.5)
[2017-09-14 07:33] LABS: WHITE BLOOD COUNT 13.5 10^3/ul (4.8-10.8)
[2017-09-14 08:02] LABS: ANION GAP 11 (8-16); BLOOD UREA NITROGEN 32 mg/dl (7-20); CALCIUM 8.9 mg/dl (8.4-10.2); CARBON DIOXIDE 34 mmol/L (21-31); CHLORIDE 101 mmol/L (97-110); CREATININE 2.94 mg/dl (0.44-1.00); GLUCOSE 182 mg/dl (70-220); POTASSIUM 4.2 mmol/L (3.5-5.1); SODIUM 142 mmol/L (135-144)
[2017-09-14] MEDS: INSULIN ASPART [NOVOLOG] 3 ML PEN SC ×7 (09:16→22:45)
[2017-09-14] MEDS: ASPIRIN 81 MG TAB PO (10:01)
[2017-09-14] MEDS: ISOSORBIDE DINITRATE 20 MG TAB PO ×3 (10:01→22:28)
[2017-09-14] MEDS: NIFEdipine (XL) 30 MG TAB PO ×2 (10:02→22:28)
[2017-09-14] MEDS: POTASSIUM CHLORIDE (SR) 20 MEQ TAB PO (10:02)
[2017-09-14] MEDS: MULTIVIT/CA CARB/B CMPLX/FA TAB PO (10:02)
[2017-09-14] MEDS: LINAGLIPTIN 5 MG TABLET PO (10:03)
[2017-09-14] MEDS: FUROSEMIDE 40 MG TAB PO (10:03)
[2017-09-14] MEDS: CITRIC ACID/SODIUM CITRATE 15 ML CUP PO ×3 (10:04→22:26)
[2017-09-14] MEDS: SILVER SULFADIAZINE 1% 25 GM CR TOP (10:11)
[2017-09-14] MEDS: CLOTRIMAZOLE 1% 30 GM CR TOP ×2 (10:12→22:29)
[2017-09-14] MEDS: HEPARIN 5,000 UNIT/0.5 ML VIAL SC ×2 (10:18→22:45)
[2017-09-14] MEDS: ATORVASTATIN 40 MG TAB PO (22:28)
[2017-09-14] MEDS: INSULIN GLARGINE [LANtus] 3 ML PEN SC (22:45)
[2017-09-15] MEDS: ACCU-CHEK XX (02:32)
[2017-09-15] MEDS: PANTOPRAZOLE (EC) 40 MG TAB PO (06:07)
[2017-09-15] MEDS: INSULIN ASPART [NOVOLOG] 3 ML PEN SC ×7 (08:52→21:31)
[2017-09-15] MEDS: ASPIRIN 81 MG TAB PO (10:34)
[2017-09-15] MEDS: CITRIC ACID/SODIUM CITRATE 15 ML CUP PO ×3 (10:36→21:01)
[2017-09-15] MEDS: LINAGLIPTIN 5 MG TABLET PO (10:36)
[2017-09-15] MEDS: MULTIVIT/CA CARB/B CMPLX/FA TAB PO (10:36)
[2017-09-15] MEDS: NIFEdipine (XL) 30 MG TAB PO ×2 (10:41→21:00)
[2017-09-15] MEDS: FUROSEMIDE 40 MG TAB PO (10:41)
[2017-09-15] MEDS: ISOSORBIDE DINITRATE 20 MG TAB PO ×3 (10:42→21:00)
[2017-09-15] MEDS: HEPARIN 5,000 UNIT/0.5 ML VIAL SC ×2 (10:50→21:30)
[2017-09-15] MEDS: CLOTRIMAZOLE 1% 30 GM CR TOP ×2 (10:50→21:09)
[2017-09-15] MEDS: POTASSIUM CHLORIDE (SR) 20 MEQ TAB PO (10:51)
[2017-09-15] MEDS: SILVER SULFADIAZINE 1% 25 GM CR TOP (10:51)
[2017-09-15 17:09] LABS: AADO2 Arterial 81.8 mmHg (7.0-24.0); Arterial Base Excess 6.1 mmol/L (-3.0-3); Arterial COHb 0.4 % (0.0-3.0); Arterial Fraction of Oxyhgb 95.5 % (93.0-99.0); Arterial MetHb 0.1 % (0.0-1.5); Arterial Total Hemglobin 8.1 g/dl (12.0-18.0); Arterial pCO2 34.8 mmhg (35-45); MODE NASAL CANNULA; Site Right Brachial
[2017-09-15] MEDS: ATORVASTATIN 40 MG TAB PO (21:01)
[2017-09-15] MEDS: INSULIN GLARGINE [LANtus] 3 ML PEN SC (21:31)
[2017-09-16] MEDS: ACCU-CHEK XX (01:14)
[2017-09-16] MEDS: morphine 2 MG INJ IV ×2 (04:32→18:17)
[2017-09-16] MEDS: PANTOPRAZOLE (EC) 40 MG TAB PO (05:17)
[2017-09-16 05:50] LABS: ADD MAN DIFF? NO
[2017-09-16 05:53] LABS: WHITE BLOOD COUNT 13.3 10^3/ul (4.8-10.8)
[2017-09-16 05:53] LABS: BASOPHIL # 0.1 10^3/ul (0.0-0.1); BASOPHILS % 0.4 % (0.0-2.0); EOSINOPHILS # 0.2 10^3/ul (0.0-0.5); EOSINOPHILS % 1.4 % (0.0-7.0); HEMATOCRIT 23.9 % (37.0-47.0); HEMOGLOBIN 7.3 g/dl (12.0-16.0); LYMPHOCYTES # 1.4 10^3/ul (0.8-2.9); LYMPHOCYTES % 10.3 % (15.0-51.0); MEAN CORPUSCULAR HEMOGLOBIN 29.2 pg (29.0-33.0); MEAN CORPUSCULAR HGB CONC 30.5 g/dl (32.0-37.0); MEAN CORPUSCULAR VOLUME 95.6 fl (82.0-101.0); MEAN PLATELET VOLUME 10.3 fl (7.4-10.4); MONOCYTE # 0.9 10^3/ul (0.3-0.9); MONOCYTES % 6.4 % (0.0-11.0); NEUTROPHIL # 10.7 10^3/ul (1.6-7.5); NEUTROPHILS % 80.4 % (39.0-77.0); PLATELET COUNT 328 10^3/UL (140-415); RED CELL DISTRIBUTION WIDTH 15.6 % (11.5-14.5)
[2017-09-16 06:08] LABS: ANION GAP 11 (8-16); BLOOD UREA NITROGEN 37 mg/dl (7-20); CALCIUM 8.6 mg/dl (8.4-10.2); CARBON DIOXIDE 34 mmol/L (21-31); CHLORIDE 98 mmol/L (97-110); GLUCOSE 208 mg/dl (70-220); POTASSIUM 4.4 mmol/L (3.5-5.1); SODIUM 139 mmol/L (135-144)
[2017-09-16] MEDS: CITRIC ACID/SODIUM CITRATE 15 ML CUP PO ×3 (08:08→20:06)
[2017-09-16] MEDS: FUROSEMIDE 40 MG TAB PO (08:08)
[2017-09-16] MEDS: ASPIRIN 81 MG TAB PO (08:08)
[2017-09-16] MEDS: INSULIN ASPART [NOVOLOG] 3 ML PEN SC ×7 (08:11→20:05)
[2017-09-16] MEDS: HEPARIN 5,000 UNIT/0.5 ML VIAL SC ×2 (08:12→20:20)
[2017-09-16] MEDS: LINAGLIPTIN 5 MG TABLET PO (08:12)
[2017-09-16] MEDS: POTASSIUM CHLORIDE (SR) 20 MEQ TAB PO (08:13)
[2017-09-16] MEDS: NIFEdipine (XL) 30 MG TAB PO ×2 (08:13→20:08)
[2017-09-16] MEDS: ISOSORBIDE DINITRATE 20 MG TAB PO ×3 (08:14→20:08)
[2017-09-16] MEDS: MULTIVIT/CA CARB/B CMPLX/FA TAB PO (08:14)
[2017-09-16] MEDS: CLOTRIMAZOLE 1% 30 GM CR TOP ×2 (08:14→20:09)
[2017-09-16] MEDS: SILVER SULFADIAZINE 1% 25 GM CR TOP (08:14)
[2017-09-16] MEDS: HEPARIN 1000 UNITS/ML 10 ML INJ CATHETER (18:01)
[2017-09-16] MEDS: ATORVASTATIN 40 MG TAB PO (20:09)
[2017-09-16] MEDS: INSULIN GLARGINE [LANtus] 3 ML PEN SC (20:20)
[2017-09-17] MEDS: ACCU-CHEK XX (02:00)
[2017-09-17] MEDS: morphine 2 MG INJ IV (06:13)
[2017-09-17] MEDS: PANTOPRAZOLE (EC) 40 MG TAB PO (06:13)
[2017-09-17] MEDS: FUROSEMIDE 40 MG TAB PO (08:55)
[2017-09-17] MEDS: ASPIRIN 81 MG TAB PO (08:55)
[2017-09-17] MEDS: CITRIC ACID/SODIUM CITRATE 15 ML CUP PO ×3 (08:56→21:12)
[2017-09-17] MEDS: ISOSORBIDE DINITRATE 20 MG TAB PO ×3 (08:56→21:11)
[2017-09-17] MEDS: POTASSIUM CHLORIDE (SR) 20 MEQ TAB PO (08:56)
[2017-09-17] MEDS: NIFEdipine (XL) 30 MG TAB PO ×2 (08:57→21:12)
[2017-09-17] MEDS: MULTIVIT/CA CARB/B CMPLX/FA TAB PO (08:57)
[2017-09-17] MEDS: LINAGLIPTIN 5 MG TABLET PO (08:57)
[2017-09-17] MEDS: SILVER SULFADIAZINE 1% 25 GM CR TOP (09:01)
[2017-09-17] MEDS: INSULIN ASPART [NOVOLOG] 3 ML PEN SC ×7 (09:01→21:00)
[2017-09-17] MEDS: CLOTRIMAZOLE 1% 30 GM CR TOP ×2 (09:01→21:12)
[2017-09-17] MEDS: HEPARIN 5,000 UNIT/0.5 ML VIAL SC ×2 (09:11→21:28)
[2017-09-17] MEDS: ATORVASTATIN 40 MG TAB PO (21:11)
[2017-09-17] MEDS: INSULIN GLARGINE [LANtus] 3 ML PEN SC (21:27)
[2017-09-18] MEDS: ACCU-CHEK XX (01:04)
[2017-09-18] MEDS: PANTOPRAZOLE (EC) 40 MG TAB PO (05:50)
[2017-09-18 06:38] LABS: ADD MAN DIFF? NO
[2017-09-18 06:45] LABS: WHITE BLOOD COUNT 12.3 10^3/ul (4.8-10.8)
[2017-09-18 06:45] LABS: BASOPHIL # 0.1 10^3/ul (0.0-0.1); BASOPHILS % 0.5 % (0.0-2.0); EOSINOPHILS # 0.2 10^3/ul (0.0-0.5); EOSINOPHILS % 1.5 % (0.0-7.0); HEMATOCRIT 25.9 % (37.0-47.0); HEMOGLOBIN 7.8 g/dl (12.0-16.0); LYMPHOCYTES # 1.8 10^3/ul (0.8-2.9); LYMPHOCYTES % 14.4 % (15.0-51.0); MEAN CORPUSCULAR HEMOGLOBIN 28.7 pg (29.0-33.0); MEAN CORPUSCULAR HGB CONC 30.1 g/dl (32.0-37.0); MEAN CORPUSCULAR VOLUME 95.2 fl (82.0-101.0); MONOCYTE # 0.9 10^3/ul (0.3-0.9); MONOCYTES % 7.1 % (0.0-11.0); NEUTROPHIL # 9.2 10^3/ul (1.6-7.5); PLATELET COUNT 380 10^3/UL (140-415); RED BLOOD COUNT 2.72 10^6/ul (4.20-5.40); RED CELL DISTRIBUTION WIDTH 15.1 % (11.5-14.5)
[2017-09-18 06:56] LABS: IMMEDIATE SPIN CROSSMATCH 1 1
[2017-09-18 07:08] LABS: ANION GAP 13 (8-16); BLOOD UREA NITROGEN 38 mg/dl (7-20); CALCIUM 9.4 mg/dl (8.4-10.2); CARBON DIOXIDE 31 mmol/L (21-31); CHLORIDE 100 mmol/L (97-110); CREATININE 3.42 mg/dl (0.44-1.00); GLUCOSE 178 mg/dl (70-220); POTASSIUM 5.1 mmol/L (3.5-5.1); SODIUM 139 mmol/L (135-144)
[2017-09-18] MEDS: INSULIN ASPART [NOVOLOG] 3 ML PEN SC ×7 (07:50→20:44)
[2017-09-18] MEDS: SOD CHLORIDE 0.9% 250 ML IV* (08:00)
[2017-09-18] MEDS: NIFEdipine (XL) 30 MG TAB PO ×2 (09:00→20:37)
[2017-09-18] MEDS: POTASSIUM CHLORIDE (SR) 20 MEQ TAB PO (09:00)
[2017-09-18] MEDS: SILVER SULFADIAZINE 1% 25 GM CR TOP ×2 (09:00→10:45)
[2017-09-18] MEDS: ISOSORBIDE DINITRATE 20 MG TAB PO ×3 (09:00→20:36)
[2017-09-18] MEDS: CLOTRIMAZOLE 1% 30 GM CR TOP ×2 (09:06→20:44)
[2017-09-18] MEDS: ASPIRIN 81 MG TAB PO (09:06)
[2017-09-18] MEDS: LINAGLIPTIN 5 MG TABLET PO (09:07)
[2017-09-18] MEDS: MULTIVIT/CA CARB/B CMPLX/FA TAB PO (09:07)
[2017-09-18] MEDS: FUROSEMIDE 40 MG TAB PO (09:07)
[2017-09-18] MEDS: CITRIC ACID/SODIUM CITRATE 15 ML CUP PO ×3 (09:08→20:36)
[2017-09-18] MEDS: HEPARIN 5,000 UNIT/0.5 ML VIAL SC ×2 (09:13→20:40)
[2017-09-18] MEDS: EPOETIN 10000 UNITS/1 ML INJ (ESRD) SC (10:48)
[2017-09-18] MEDS: hydrALAzine 20 MG INJ IV (19:48)
[2017-09-18] MEDS: ATORVASTATIN 40 MG TAB PO (20:36)
[2017-09-18] MEDS: INSULIN GLARGINE [LANtus] 3 ML PEN SC (20:41)
[2017-09-19] MEDS: ACCU-CHEK XX (02:00)
[2017-09-19] MEDS: PANTOPRAZOLE (EC) 40 MG TAB PO (05:26)
[2017-09-19] MEDS: ASPIRIN 81 MG TAB PO (08:32)
[2017-09-19] MEDS: LINAGLIPTIN 5 MG TABLET PO (08:32)
[2017-09-19] MEDS: MULTIVIT/CA CARB/B CMPLX/FA TAB PO (08:32)
[2017-09-19] MEDS: FUROSEMIDE 40 MG TAB PO (08:33)
[2017-09-19] MEDS: CITRIC ACID/SODIUM CITRATE 15 ML CUP PO ×3 (08:35→21:07)
[2017-09-19] MEDS: POTASSIUM CHLORIDE (SR) 20 MEQ TAB PO (08:36)
[2017-09-19] MEDS: CLOTRIMAZOLE 1% 30 GM CR TOP ×2 (08:37→21:00)
[2017-09-19] MEDS: SILVER SULFADIAZINE 1% 25 GM CR TOP (08:37)
[2017-09-19] MEDS: HEPARIN 5,000 UNIT/0.5 ML VIAL SC ×2 (08:48→21:16)
[2017-09-19] MEDS: INSULIN ASPART [NOVOLOG] 3 ML PEN SC ×7 (08:48→21:00)
[2017-09-19] MEDS: ISOSORBIDE DINITRATE 20 MG TAB PO ×3 (09:00→21:08)
[2017-09-19] MEDS: NIFEdipine (XL) 30 MG TAB PO ×2 (09:00→21:08)
[2017-09-19 09:20] LABS: ADD MAN DIFF? NO
[2017-09-19 09:26] LABS: BASOPHIL # 0.1 10^3/ul (0.0-0.1); BASOPHILS % 0.5 % (0.0-2.0); EOSINOPHILS # 0.2 10^3/ul (0.0-0.5); EOSINOPHILS % 1.7 % (0.0-7.0); HEMOGLOBIN 9.2 g/dl (12.0-16.0); LYMPHOCYTES # 1.4 10^3/ul (0.8-2.9); LYMPHOCYTES % 10.6 % (15.0-51.0); MEAN CORPUSCULAR HEMOGLOBIN 29.1 pg (29.0-33.0); MEAN CORPUSCULAR HGB CONC 31.7 g/dl (32.0-37.0); MEAN CORPUSCULAR VOLUME 91.8 fl (82.0-101.0); MEAN PLATELET VOLUME 10.1 fl (7.4-10.4); MONOCYTE # 0.8 10^3/ul (0.3-0.9); MONOCYTES % 6.4 % (0.0-11.0); NEUTROPHIL # 10.3 10^3/ul (1.6-7.5); NEUTROPHILS % 79.2 % (39.0-77.0); PLATELET COUNT 370 10^3/UL (140-415); RED BLOOD COUNT 3.16 10^6/ul (4.20-5.40); RED CELL DISTRIBUTION WIDTH 15.6 % (11.5-14.5)
[2017-09-19 09:44] LABS: ANION GAP 12 (8-16); BLOOD UREA NITROGEN 35 mg/dl (7-20); CALCIUM 9.1 mg/dl (8.4-10.2); CARBON DIOXIDE 33 mmol/L (21-31); CHLORIDE 95 mmol/L (97-110); CREATININE 3.19 mg/dl (0.44-1.00); GLUCOSE 237 mg/dl (70-220); SODIUM 136 mmol/L (135-144)
[2017-09-19] MEDS: ERGOCALCIFEROL 50,000 UNIT CAP PO (17:31)
[2017-09-19] MEDS: ATORVASTATIN 40 MG TAB PO (21:07)
[2017-09-19] MEDS: INSULIN GLARGINE [LANtus] 3 ML PEN SC (21:17)
[2017-09-20] MEDS: ACCU-CHEK XX (02:33)
[2017-09-20] MEDS: morphine 2 MG INJ IV (06:04)
[2017-09-20] MEDS: PANTOPRAZOLE (EC) 40 MG TAB PO (06:04)
[2017-09-20] MEDS: CITRIC ACID/SODIUM CITRATE 15 ML CUP PO ×3 (08:46→20:41)
[2017-09-20] MEDS: MULTIVIT/CA CARB/B CMPLX/FA TAB PO (08:46)
[2017-09-20] MEDS: ISOSORBIDE DINITRATE 20 MG TAB PO ×3 (08:47→22:52)
[2017-09-20] MEDS: NIFEdipine (XL) 30 MG TAB PO ×2 (08:47→22:52)
[2017-09-20] MEDS: FUROSEMIDE 40 MG TAB PO (08:47)
[2017-09-20] MEDS: ASPIRIN 81 MG TAB PO (08:47)
[2017-09-20] MEDS: LINAGLIPTIN 5 MG TABLET PO (08:48)
[2017-09-20] MEDS: POTASSIUM CHLORIDE (SR) 20 MEQ TAB PO (08:48)
[2017-09-20] MEDS: SILVER SULFADIAZINE 1% 25 GM CR TOP (08:49)
[2017-09-20] MEDS: CLOTRIMAZOLE 1% 30 GM CR TOP ×2 (08:49→22:13)
[2017-09-20] MEDS: INSULIN ASPART [NOVOLOG] 3 ML PEN SC ×7 (09:06→20:54)
[2017-09-20] MEDS: HEPARIN 5,000 UNIT/0.5 ML VIAL SC ×2 (09:07→21:07)
[2017-09-20] MEDS: ATORVASTATIN 40 MG TAB PO (20:41)
[2017-09-20] MEDS: INSULIN GLARGINE [LANtus] 3 ML PEN SC (20:55)
[2017-09-21] MEDS: ACCU-CHEK XX (02:06)
[2017-09-21] MEDS: ACETAMINOPHEN 325 MG TAB PO (02:18)
[2017-09-21] MEDS: PANTOPRAZOLE (EC) 40 MG TAB PO (05:08)
[2017-09-21 07:06] LABS: ADD MAN DIFF? NO
[2017-09-21 07:12] LABS: BASOPHIL # 0.1 10^3/ul (0.0-0.1); BASOPHILS % 0.6 % (0.0-2.0); EOSINOPHILS # 0.3 10^3/ul (0.0-0.5); EOSINOPHILS % 1.8 % (0.0-7.0); HEMATOCRIT 28.5 % (37.0-47.0); HEMOGLOBIN 8.9 g/dl (12.0-16.0); LYMPHOCYTES % 13.7 % (15.0-51.0); MEAN CORPUSCULAR HEMOGLOBIN 28.9 pg (29.0-33.0); MEAN CORPUSCULAR HGB CONC 31.2 g/dl (32.0-37.0); MEAN CORPUSCULAR VOLUME 92.5 fl (82.0-101.0); MEAN PLATELET VOLUME 9.9 fl (7.4-10.4); MONOCYTE # 1.2 10^3/ul (0.3-0.9); MONOCYTES % 8.1 % (0.0-11.0); NEUTROPHIL # 10.5 10^3/ul (1.6-7.5); NEUTROPHILS % 73.5 % (39.0-77.0); PLATELET COUNT 375 10^3/UL (140-415); RED BLOOD COUNT 3.08 10^6/ul (4.20-5.40); RED CELL DISTRIBUTION WIDTH 15.6 % (11.5-14.5)
[2017-09-21 07:12] LABS: WHITE BLOOD COUNT 14.3 10^3/ul (4.8-10.8)
[2017-09-21 07:30] LABS: ANION GAP 14 (8-16); BLOOD UREA NITROGEN 46 mg/dl (7-20); CALCIUM 9.5 mg/dl (8.4-10.2); CARBON DIOXIDE 33 mmol/L (21-31); CHLORIDE 96 mmol/L (97-110); CREATININE 3.62 mg/dl (0.44-1.00); GLUCOSE 210 mg/dl (70-220); POTASSIUM 4.1 mmol/L (3.5-5.1); SODIUM 139 mmol/L (135-144)
[2017-09-21] MEDS: POTASSIUM CHLORIDE (SR) 20 MEQ TAB PO (08:46)
[2017-09-21] MEDS: ASPIRIN 81 MG TAB PO (08:46)
[2017-09-21] MEDS: FUROSEMIDE 40 MG TAB PO (08:47)
[2017-09-21] MEDS: CITRIC ACID/SODIUM CITRATE 15 ML CUP PO ×3 (08:47→20:32)
[2017-09-21] MEDS: MULTIVIT/CA CARB/B CMPLX/FA TAB PO (08:47)
[2017-09-21] MEDS: LINAGLIPTIN 5 MG TABLET PO (08:47)
[2017-09-21] MEDS: NIFEdipine (XL) 60 MG TAB PO (08:47)
[2017-09-21] MEDS: ISOSORBIDE DINITRATE 20 MG TAB PO ×3 (08:47→20:33)
[2017-09-21] MEDS: SILVER SULFADIAZINE 1% 25 GM CR TOP (08:48)
[2017-09-21] MEDS: CLOTRIMAZOLE 1% 30 GM CR TOP ×2 (08:48→20:42)
[2017-09-21] MEDS: INSULIN ASPART [NOVOLOG] 3 ML PEN SC ×7 (08:51→20:39)
[2017-09-21] MEDS: HEPARIN 5,000 UNIT/0.5 ML VIAL SC ×2 (08:53→20:38)
[2017-09-21] MEDS ORDERED: EPOETIN 10000 UNITS/1 ML INJ (ESRD) SC (13:30)
[2017-09-21] MEDS ORDERED: VANCOMYCIN 1 GM (PMX) 250 ML IVPB (13:30)
[2017-09-21] MEDS ORDERED: VANCOMYCIN IV PER PHARMACY XX (13:30)
[2017-09-21] MEDS ORDERED: DOXAZOSIN 4 MG TAB PO (13:30)
[2017-09-21] MEDS ORDERED: FUROSEMIDE 40 MG TAB PO (13:30)
[2017-09-21] MEDS ORDERED: VORICONAZOLE 200 MG TAB PO (13:30)
[2017-09-21] MEDS ORDERED: METOCLOPRAMIDE (1 MG/ML) 10 ML CUP PO (13:30)
[2017-09-21] MEDS: EPOETIN 10000 UNITS/1 ML INJ (ESRD) SC (17:49)
[2017-09-21] MEDS: ATORVASTATIN 40 MG TAB PO (20:33)
[2017-09-21] MEDS: NIFEdipine (XL) 30 MG TAB PO (20:34)
[2017-09-21] MEDS: INSULIN GLARGINE [LANtus] 3 ML PEN SC (20:39)
[2017-09-21] MEDS: HYDROCODONE/APAP (5/325) TAB PO (23:36)
[2017-09-22] MEDS: ACCU-CHEK XX ×2 (01:47)
[2017-09-22] MEDS: ZOLPIDEM 5 MG TAB PO (01:52)
[2017-09-22] MEDS: PANTOPRAZOLE (EC) 40 MG TAB PO (05:46)
[2017-09-22 06:50] LABS: ADD MAN DIFF? NO
[2017-09-22 06:52] LABS: WHITE BLOOD COUNT 13.4 10^3/ul (4.8-10.8)
[2017-09-22 06:52] LABS: BASOPHIL # 0.1 10^3/ul (0.0-0.1); BASOPHILS % 0.8 % (0.0-2.0); EOSINOPHILS # 0.2 10^3/ul (0.0-0.5); EOSINOPHILS % 1.6 % (0.0-7.0); HEMATOCRIT 29.5 % (37.0-47.0); HEMOGLOBIN 9.1 g/dl (12.0-16.0); LYMPHOCYTES # 1.7 10^3/ul (0.8-2.9); MEAN CORPUSCULAR HEMOGLOBIN 29.2 pg (29.0-33.0); MEAN CORPUSCULAR HGB CONC 30.8 g/dl (32.0-37.0); MEAN CORPUSCULAR VOLUME 94.6 fl (82.0-101.0); MEAN PLATELET VOLUME 9.9 fl (7.4-10.4); MONOCYTE # 1.2 10^3/ul (0.3-0.9); MONOCYTES % 8.9 % (0.0-11.0); NEUTROPHIL # 9.9 10^3/ul (1.6-7.5); NEUTROPHILS % 74.1 % (39.0-77.0); PLATELET COUNT 358 10^3/UL (140-415); RED BLOOD COUNT 3.12 10^6/ul (4.20-5.40); RED CELL DISTRIBUTION WIDTH 15.7 % (11.5-14.5)
[2017-09-22 07:07] LABS: ANION GAP 13 (8-16); BLOOD UREA NITROGEN 37 mg/dl (7-20); CALCIUM 9.3 mg/dl (8.4-10.2); CARBON DIOXIDE 33 mmol/L (21-31); CHLORIDE 97 mmol/L (97-110); CREATININE 3.06 mg/dl (0.44-1.00); GLUCOSE 221 mg/dl (70-220); POTASSIUM 4.4 mmol/L (3.5-5.1); SODIUM 139 mmol/L (135-144)
[2017-09-22] MEDS: MULTIVIT/CA CARB/B CMPLX/FA TAB PO (08:20)
[2017-09-22] MEDS: NIFEdipine (XL) 60 MG TAB PO (08:21)
[2017-09-22] MEDS: ASPIRIN 81 MG TAB PO (08:21)
[2017-09-22] MEDS: ISOSORBIDE DINITRATE 20 MG TAB PO ×3 (08:21→21:13)
[2017-09-22] MEDS: POTASSIUM CHLORIDE (SR) 20 MEQ TAB PO (08:21)
[2017-09-22] MEDS: SILVER SULFADIAZINE 1% 25 GM CR TOP (08:21)
[2017-09-22] MEDS: FUROSEMIDE 40 MG TAB PO (08:21)
[2017-09-22] MEDS: CLOTRIMAZOLE 1% 30 GM CR TOP ×2 (08:21→21:13)
[2017-09-22] MEDS: LINAGLIPTIN 5 MG TABLET PO (08:21)
[2017-09-22] MEDS: CITRIC ACID/SODIUM CITRATE 15 ML CUP PO ×3 (08:22→21:02)
[2017-09-22] MEDS: INSULIN ASPART [NOVOLOG] 3 ML PEN SC ×8 (08:26→21:00)
[2017-09-22] MEDS: HEPARIN 5,000 UNIT/0.5 ML VIAL SC ×2 (08:28→21:04)
[2017-09-22] MEDS: HYDROCODONE/APAP (5/325) TAB PO ×2 (14:15→21:06)
[2017-09-22 20:58] LABS: ADD MAN DIFF? NO
[2017-09-22 21:00] LABS: WHITE BLOOD COUNT 12.4 10^3/ul (4.8-10.8)
[2017-09-22 21:00] LABS: BASOPHIL # 0.1 10^3/ul (0.0-0.1); BASOPHILS % 0.6 % (0.0-2.0); EOSINOPHILS # 0.2 10^3/ul (0.0-0.5); EOSINOPHILS % 1.9 % (0.0-7.0); HEMATOCRIT 28.6 % (37.0-47.0); HEMOGLOBIN 8.9 g/dl (12.0-16.0); LYMPHOCYTES % 16.2 % (15.0-51.0); MEAN CORPUSCULAR HEMOGLOBIN 29.4 pg (29.0-33.0); MEAN CORPUSCULAR HGB CONC 31.1 g/dl (32.0-37.0); MEAN CORPUSCULAR VOLUME 94.4 fl (82.0-101.0); MEAN PLATELET VOLUME 9.8 fl (7.4-10.4); MONOCYTE # 1.1 10^3/ul (0.3-0.9); MONOCYTES % 9.1 % (0.0-11.0); NEUTROPHIL # 8.8 10^3/ul (1.6-7.5); NEUTROPHILS % 70.7 % (39.0-77.0); PLATELET COUNT 354 10^3/UL (140-415); RED BLOOD COUNT 3.03 10^6/ul (4.20-5.40); RED CELL DISTRIBUTION WIDTH 15.6 % (11.5-14.5)
[2017-09-22] MEDS: ATORVASTATIN 40 MG TAB PO (21:02)
[2017-09-22] MEDS: NIFEdipine (XL) 30 MG TAB PO (21:13)
[2017-09-22] MEDS: INSULIN GLARGINE [LANtus] 3 ML PEN SC (22:37)
[2017-09-23] MEDS: ACCU-CHEK XX ×2 (02:00)
[2017-09-23 06:06] LABS: ANION GAP 17 (8-16); BLOOD UREA NITROGEN 50 mg/dl (7-20); CALCIUM 9.3 mg/dl (8.4-10.2); CARBON DIOXIDE 32 mmol/L (21-31); CHLORIDE 97 mmol/L (97-110); CREATININE 4.04 mg/dl (0.44-1.00); GLUCOSE 204 mg/dl (70-220); POTASSIUM 4.8 mmol/L (3.5-5.1); SODIUM 141 mmol/L (135-144)
[2017-09-23] MEDS: PANTOPRAZOLE (EC) 40 MG TAB PO (06:24)
[2017-09-23] MEDS: NIFEdipine (XL) 60 MG TAB PO (09:00)
[2017-09-23] MEDS: ISOSORBIDE DINITRATE 20 MG TAB PO ×3 (09:00→21:23)
[2017-09-23] MEDS: ASPIRIN 81 MG TAB PO (09:15)
[2017-09-23] MEDS: CITRIC ACID/SODIUM CITRATE 15 ML CUP PO ×3 (09:16→21:23)
[2017-09-23] MEDS: MULTIVIT/CA CARB/B CMPLX/FA TAB PO (09:16)
[2017-09-23] MEDS: LINAGLIPTIN 5 MG TABLET PO (09:16)
[2017-09-23] MEDS: CLOTRIMAZOLE 1% 30 GM CR TOP ×2 (09:17→21:25)
[2017-09-23] MEDS: INSULIN ASPART [NOVOLOG] 3 ML PEN SC ×7 (09:17→21:00)
[2017-09-23] MEDS: FUROSEMIDE 40 MG TAB PO (09:19)
[2017-09-23] MEDS: POTASSIUM CHLORIDE (SR) 20 MEQ TAB PO (09:20)
[2017-09-23] MEDS: HEPARIN 5,000 UNIT/0.5 ML VIAL SC ×2 (09:29→21:22)
[2017-09-23] MEDS: SILVER SULFADIAZINE 1% 25 GM CR TOP (12:01)
[2017-09-23] MEDS: HYDROCODONE/APAP (5/325) TAB PO (15:31)
[2017-09-23] MEDS ORDERED: EPOETIN 3000 UNITS/1 ML INJ (ESRD) SC (17:00)
[2017-09-23] MEDS: INSULIN GLARGINE [LANtus] 3 ML PEN SC (21:22)
[2017-09-23] MEDS: ATORVASTATIN 40 MG TAB PO (21:23)
[2017-09-23] MEDS: NIFEdipine (XL) 30 MG TAB PO (21:24)
[2017-09-24] MEDS: ACCU-CHEK XX ×2 (02:00)
[2017-09-24] MEDS: PANTOPRAZOLE (EC) 40 MG TAB PO (05:38)
[2017-09-24 06:26] LABS: ADD MAN DIFF? NO
[2017-09-24 06:36] LABS: BASOPHIL # 0.1 10^3/ul (0.0-0.1); BASOPHILS % 0.4 % (0.0-2.0); EOSINOPHILS # 0.3 10^3/ul (0.0-0.5); EOSINOPHILS % 2.3 % (0.0-7.0); HEMATOCRIT 30.2 % (37.0-47.0); HEMOGLOBIN 9.4 g/dl (12.0-16.0); LYMPHOCYTES # 2.2 10^3/ul (0.8-2.9); LYMPHOCYTES % 16.1 % (15.0-51.0); MEAN CORPUSCULAR HEMOGLOBIN 28.8 pg (29.0-33.0); MEAN CORPUSCULAR HGB CONC 31.1 g/dl (32.0-37.0); MEAN CORPUSCULAR VOLUME 92.6 fl (82.0-101.0); MEAN PLATELET VOLUME 10.3 fl (7.4-10.4); MONOCYTE # 1.1 10^3/ul (0.3-0.9); MONOCYTES % 7.8 % (0.0-11.0); NEUTROPHIL # 9.7 10^3/ul (1.6-7.5); NEUTROPHILS % 72.1 % (39.0-77.0); PLATELET COUNT 311 10^3/UL (140-415); RED BLOOD COUNT 3.26 10^6/ul (4.20-5.40); RED CELL DISTRIBUTION WIDTH 15.8 % (11.5-14.5)
[2017-09-24 06:36] LABS: WHITE BLOOD COUNT 13.5 10^3/ul (4.8-10.8)
[2017-09-24 07:09] LABS: ANION GAP 14 (8-16); BLOOD UREA NITROGEN 42 mg/dl (7-20); CARBON DIOXIDE 33 mmol/L (21-31); CHLORIDE 94 mmol/L (97-110); CREATININE 3.45 mg/dl (0.44-1.00); GLUCOSE 178 mg/dl (70-220); POTASSIUM 4.2 mmol/L (3.5-5.1); SODIUM 137 mmol/L (135-144)
[2017-09-24] MEDS: CITRIC ACID/SODIUM CITRATE 15 ML CUP PO ×3 (08:26→21:07)
[2017-09-24] MEDS: POTASSIUM CHLORIDE (SR) 20 MEQ TAB PO (08:26)
[2017-09-24] MEDS: MULTIVIT/CA CARB/B CMPLX/FA TAB PO (08:27)
[2017-09-24] MEDS: LINAGLIPTIN 5 MG TABLET PO (08:27)
[2017-09-24] MEDS: FUROSEMIDE 40 MG TAB PO (08:27)
[2017-09-24] MEDS: ASPIRIN 81 MG TAB PO (08:27)
[2017-09-24] MEDS: SILVER SULFADIAZINE 1% 25 GM CR TOP (08:28)
[2017-09-24] MEDS: CLOTRIMAZOLE 1% 30 GM CR TOP ×2 (08:28→21:09)
[2017-09-24] MEDS: NIFEdipine (XL) 60 MG TAB PO (08:28)
[2017-09-24] MEDS: ISOSORBIDE DINITRATE 20 MG TAB PO ×3 (08:29→21:07)
[2017-09-24] MEDS: HEPARIN 5,000 UNIT/0.5 ML VIAL SC ×2 (08:33→21:06)
[2017-09-24] MEDS: INSULIN ASPART [NOVOLOG] 3 ML PEN SC ×7 (09:01→21:00)
[2017-09-24] MEDS: HEPARIN 1000 UNITS/ML 10 ML INJ CATHETER (15:00)
[2017-09-24] MEDS: INSULIN GLARGINE [LANtus] 3 ML PEN SC (21:06)
[2017-09-24] MEDS: ATORVASTATIN 40 MG TAB PO (21:07)
[2017-09-24] MEDS: NIFEdipine (XL) 30 MG TAB PO (21:08)
[2017-09-25] MEDS: ACCU-CHEK XX ×2 (02:00)
[2017-09-25] MEDS: PANTOPRAZOLE (EC) 40 MG TAB PO (05:42)
[2017-09-25] MEDS: MULTIVIT/CA CARB/B CMPLX/FA TAB PO (09:19)
[2017-09-25] MEDS: POTASSIUM CHLORIDE (SR) 20 MEQ TAB PO (09:19)
[2017-09-25] MEDS: CITRIC ACID/SODIUM CITRATE 15 ML CUP PO ×3 (09:20→21:45)
[2017-09-25] MEDS: ISOSORBIDE DINITRATE 20 MG TAB PO ×3 (09:20→21:44)
[2017-09-25] MEDS: LINAGLIPTIN 5 MG TABLET PO (09:20)
[2017-09-25] MEDS: ASPIRIN 81 MG TAB PO (09:20)
[2017-09-25] MEDS: NIFEdipine (XL) 60 MG TAB PO (09:21)
[2017-09-25] MEDS: CLOTRIMAZOLE 1% 30 GM CR TOP ×2 (09:21→21:46)
[2017-09-25] MEDS: SILVER SULFADIAZINE 1% 25 GM CR TOP (09:21)
[2017-09-25] MEDS: HYDROCODONE/APAP (5/325) TAB PO ×3 (09:22→23:02)
[2017-09-25] MEDS: FUROSEMIDE 40 MG TAB PO (09:23)
[2017-09-25] MEDS: INSULIN ASPART [NOVOLOG] 3 ML PEN SC ×7 (09:25→21:00)
[2017-09-25] MEDS: HEPARIN 5,000 UNIT/0.5 ML VIAL SC ×2 (09:26→21:40)
[2017-09-25] MEDS: morphine 2 MG INJ IV ×2 (17:01→21:46)
[2017-09-25] MEDS: INSULIN GLARGINE [LANtus] 3 ML PEN SC (21:39)
[2017-09-25] MEDS: NIFEdipine (XL) 30 MG TAB PO (21:44)
[2017-09-25] MEDS: ATORVASTATIN 40 MG TAB PO (21:44)
[2017-09-26] MEDS: ACCU-CHEK XX ×4 (01:09→23:54)
[2017-09-26 05:13] LABS: ADD MAN DIFF? NO
[2017-09-26 05:15] LABS: BASOPHIL # 0.1 10^3/ul (0.0-0.1); BASOPHILS % 0.4 % (0.0-2.0); EOSINOPHILS # 0.3 10^3/ul (0.0-0.5); EOSINOPHILS % 1.8 % (0.0-7.0); HEMATOCRIT 29.7 % (37.0-47.0); HEMOGLOBIN 9.5 g/dl (12.0-16.0); LYMPHOCYTES # 2.1 10^3/ul (0.8-2.9); LYMPHOCYTES % 14.5 % (15.0-51.0); MEAN CORPUSCULAR HEMOGLOBIN 29.2 pg (29.0-33.0); MEAN CORPUSCULAR VOLUME 91.4 fl (82.0-101.0); MONOCYTE # 1.1 10^3/ul (0.3-0.9); MONOCYTES % 7.4 % (0.0-11.0); NEUTROPHIL # 10.8 10^3/ul (1.6-7.5); NEUTROPHILS % 74.9 % (39.0-77.0); PLATELET COUNT 303 10^3/UL (140-415); RED BLOOD COUNT 3.25 10^6/ul (4.20-5.40); RED CELL DISTRIBUTION WIDTH 15.8 % (11.5-14.5)
[2017-09-26 05:15] LABS: WHITE BLOOD COUNT 14.4 10^3/ul (4.8-10.8)
[2017-09-26 05:32] LABS: ANION GAP 19 (8-16); BLOOD UREA NITROGEN 60 mg/dl (7-20); CALCIUM 9.2 mg/dl (8.4-10.2); CARBON DIOXIDE 31 mmol/L (21-31); CHLORIDE 94 mmol/L (97-110); GLUCOSE 240 mg/dl (70-220); POTASSIUM 4.5 mmol/L (3.5-5.1); SODIUM 139 mmol/L (135-144)
[2017-09-26] MEDS: PANTOPRAZOLE (EC) 40 MG TAB PO (06:52)
[2017-09-26] MEDS: HYDROCODONE/APAP (5/325) TAB PO ×2 (06:52→22:11)
[2017-09-26] MEDS: INSULIN ASPART [NOVOLOG] 3 ML PEN SC ×7 (07:50→20:26)
[2017-09-26] MEDS: HEPARIN 5,000 UNIT/0.5 ML VIAL SC ×2 (09:00→20:28)
[2017-09-26] MEDS: ERGOCALCIFEROL 50,000 UNIT CAP PO (09:00)
[2017-09-26] MEDS: ISOSORBIDE DINITRATE 20 MG TAB PO ×3 (13:00→20:29)
[2017-09-26] MEDS: CITRIC ACID/SODIUM CITRATE 15 ML CUP PO ×3 (13:00→20:30)
[2017-09-26] MEDS: POTASSIUM CHLORIDE (SR) 20 MEQ TAB PO (13:10)
[2017-09-26] MEDS: CLOTRIMAZOLE 1% 30 GM CR TOP ×2 (13:10→20:30)
[2017-09-26] MEDS: NIFEdipine (XL) 60 MG TAB PO (13:11)
[2017-09-26] MEDS: ASPIRIN 81 MG TAB PO (13:12)
[2017-09-26] MEDS: FUROSEMIDE 40 MG TAB PO (13:12)
[2017-09-26] MEDS: MULTIVIT/CA CARB/B CMPLX/FA TAB PO (13:13)
[2017-09-26] MEDS: LINAGLIPTIN 5 MG TABLET PO (13:15)
[2017-09-26] MEDS: SILVER SULFADIAZINE 1% 25 GM CR TOP (13:16)
[2017-09-26] MEDS: INSULIN GLARGINE [LANtus] 3 ML PEN SC (20:28)
[2017-09-26] MEDS: NIFEdipine (XL) 30 MG TAB PO (20:30)
[2017-09-26] MEDS: ATORVASTATIN 40 MG TAB PO (20:30)
[2017-09-27] MEDS: HYDROCODONE/APAP (5/325) TAB PO ×2 (03:55→13:23)
[2017-09-27 05:18] LABS: ADD MAN DIFF? NO
[2017-09-27 05:24] LABS: WHITE BLOOD COUNT 14.9 10^3/ul (4.8-10.8)
[2017-09-27 05:24] LABS: BASOPHIL # 0.1 10^3/ul (0.0-0.1); BASOPHILS % 0.7 % (0.0-2.0); EOSINOPHILS # 0.3 10^3/ul (0.0-0.5); HEMATOCRIT 29.7 % (37.0-47.0); HEMOGLOBIN 9.4 g/dl (12.0-16.0); LYMPHOCYTES # 2.5 10^3/ul (0.8-2.9); MEAN CORPUSCULAR HGB CONC 31.6 g/dl (32.0-37.0); MEAN CORPUSCULAR VOLUME 91.7 fl (82.0-101.0); MEAN PLATELET VOLUME 10.4 fl (7.4-10.4); MONOCYTE # 1.1 10^3/ul (0.3-0.9); MONOCYTES % 7.1 % (0.0-11.0); NEUTROPHIL # 10.8 10^3/ul (1.6-7.5); NEUTROPHILS % 72.1 % (39.0-77.0); PLATELET COUNT 290 10^3/UL (140-415); RED BLOOD COUNT 3.24 10^6/ul (4.20-5.40); RED CELL DISTRIBUTION WIDTH 15.8 % (11.5-14.5)
[2017-09-27 05:49] LABS: ANION GAP 18 (8-16); BLOOD UREA NITROGEN 41 mg/dl (7-20); CALCIUM 9.4 mg/dl (8.4-10.2); CARBON DIOXIDE 28 mmol/L (21-31); CHLORIDE 98 mmol/L (97-110); CREATININE 3.29 mg/dl (0.44-1.00); GLUCOSE 118 mg/dl (70-220); POTASSIUM 4.3 mmol/L (3.5-5.1); SODIUM 140 mmol/L (135-144)
[2017-09-27] MEDS: PANTOPRAZOLE (EC) 40 MG TAB PO (06:26)
[2017-09-27] MEDS: INSULIN ASPART [NOVOLOG] 3 ML PEN SC ×7 (07:50→21:00)
[2017-09-27] MEDS: ASPIRIN 81 MG TAB PO (09:20)
[2017-09-27] MEDS: ISOSORBIDE DINITRATE 20 MG TAB PO ×3 (09:20→21:10)
[2017-09-27] MEDS: CITRIC ACID/SODIUM CITRATE 15 ML CUP PO ×3 (09:21→21:10)
[2017-09-27] MEDS: LINAGLIPTIN 5 MG TABLET PO (09:21)
[2017-09-27] MEDS: MULTIVIT/CA CARB/B CMPLX/FA TAB PO (09:21)
[2017-09-27] MEDS: FUROSEMIDE 40 MG TAB PO (09:22)
[2017-09-27] MEDS: HEPARIN 5,000 UNIT/0.5 ML VIAL SC ×2 (09:23→21:15)
[2017-09-27] MEDS: POTASSIUM CHLORIDE (SR) 20 MEQ TAB PO (09:26)
[2017-09-27] MEDS: CLOTRIMAZOLE 1% 30 GM CR TOP ×2 (10:11→21:11)
[2017-09-27] MEDS: SILVER SULFADIAZINE 1% 25 GM CR TOP (10:12)
[2017-09-27] MEDS: NIFEdipine (XL) 60 MG TAB PO (10:16)
[2017-09-27] MEDS: NIFEdipine (XL) 30 MG TAB PO (21:09)
[2017-09-27] MEDS: ATORVASTATIN 40 MG TAB PO (21:09)
[2017-09-27] MEDS: INSULIN GLARGINE [LANtus] 3 ML PEN SC (21:15)
[2017-09-28] MEDS: ACCU-CHEK XX ×2 (02:00)
[2017-09-28] MEDS: PANTOPRAZOLE (EC) 40 MG TAB PO (05:40)
[2017-09-28] MEDS: INSULIN ASPART [NOVOLOG] 3 ML PEN SC ×7 (07:50→20:51)
[2017-09-28] MEDS: NIFEdipine (XL) 60 MG TAB PO (09:00)
[2017-09-28] MEDS: ISOSORBIDE DINITRATE 20 MG TAB PO ×3 (09:00→20:48)
[2017-09-28] MEDS: POTASSIUM CHLORIDE (SR) 20 MEQ TAB PO (12:58)
[2017-09-28] MEDS: MULTIVIT/CA CARB/B CMPLX/FA TAB PO (12:58)
[2017-09-28] MEDS: CITRIC ACID/SODIUM CITRATE 15 ML CUP PO ×3 (12:59→20:53)
[2017-09-28] MEDS: ASPIRIN 81 MG TAB PO (12:59)
[2017-09-28] MEDS: LINAGLIPTIN 5 MG TABLET PO (12:59)
[2017-09-28] MEDS: CLOTRIMAZOLE 1% 30 GM CR TOP ×2 (13:00→20:47)
[2017-09-28] MEDS: SILVER SULFADIAZINE 1% 25 GM CR TOP (13:00)
[2017-09-28] MEDS: HEPARIN 5,000 UNIT/0.5 ML VIAL SC ×2 (13:05→20:52)
[2017-09-28] MEDS: FUROSEMIDE 40 MG TAB PO (13:10)
[2017-09-28] MEDS: ATORVASTATIN 40 MG TAB PO (20:47)
[2017-09-28] MEDS: NIFEdipine (XL) 30 MG TAB PO (20:47)
[2017-09-28] MEDS: INSULIN GLARGINE [LANtus] 3 ML PEN SC (20:53)
[2017-09-29] MEDS: ACCU-CHEK XX ×2 (02:00)
[2017-09-29] MEDS: HYDROCODONE/APAP (5/325) TAB PO ×2 (04:19→12:45)
[2017-09-29] MEDS: PANTOPRAZOLE (EC) 40 MG TAB PO (05:39)
[2017-09-29] MEDS: MULTIVIT/CA CARB/B CMPLX/FA TAB PO (08:57)
[2017-09-29] MEDS: POTASSIUM CHLORIDE (SR) 20 MEQ TAB PO (08:57)
[2017-09-29] MEDS: ASPIRIN 81 MG TAB PO (08:58)
[2017-09-29] MEDS: ISOSORBIDE DINITRATE 20 MG TAB PO ×3 (08:58→21:00)
[2017-09-29] MEDS: HEPARIN 5,000 UNIT/0.5 ML VIAL SC ×2 (08:59→20:56)
[2017-09-29] MEDS: INSULIN ASPART [NOVOLOG] 3 ML PEN SC ×7 (09:00→21:00)
[2017-09-29] MEDS: CITRIC ACID/SODIUM CITRATE 15 ML CUP PO ×3 (09:01→20:59)
[2017-09-29] MEDS: FUROSEMIDE 40 MG TAB PO (09:02)
[2017-09-29] MEDS: LINAGLIPTIN 5 MG TABLET PO (09:02)
[2017-09-29] MEDS: NIFEdipine (XL) 60 MG TAB PO (09:07)
[2017-09-29] MEDS: CLOTRIMAZOLE 1% 30 GM CR TOP ×2 (12:44→21:10)
[2017-09-29] MEDS: SILVER SULFADIAZINE 1% 25 GM CR TOP (12:44)
[2017-09-29] MEDS: INSULIN GLARGINE [LANtus] 3 ML PEN SC (20:54)
[2017-09-29] MEDS: NIFEdipine (XL) 30 MG TAB PO (21:00)
[2017-09-29] MEDS: ATORVASTATIN 40 MG TAB PO (21:01)
[2017-09-30] MEDS: ACCU-CHEK XX ×2 (02:00)
[2017-09-30 05:34] LABS: ADD MAN DIFF? NO
[2017-09-30 05:40] LABS: BASOPHIL # 0.1 10^3/ul (0.0-0.1); BASOPHILS % 0.7 % (0.0-2.0); EOSINOPHILS # 0.4 10^3/ul (0.0-0.5); EOSINOPHILS % 2.9 % (0.0-7.0); HEMATOCRIT 27.9 % (37.0-47.0); HEMOGLOBIN 8.7 g/dl (12.0-16.0); LYMPHOCYTES % 16.1 % (15.0-51.0); MEAN CORPUSCULAR HEMOGLOBIN 28.9 pg (29.0-33.0); MEAN CORPUSCULAR HGB CONC 31.2 g/dl (32.0-37.0); MEAN CORPUSCULAR VOLUME 92.7 fl (82.0-101.0); MEAN PLATELET VOLUME 10.3 fl (7.4-10.4); MONOCYTE # 0.8 10^3/ul (0.3-0.9); MONOCYTES % 6.8 % (0.0-11.0); NEUTROPHIL # 8.9 10^3/ul (1.6-7.5); NEUTROPHILS % 72.7 % (39.0-77.0); PLATELET COUNT 299 10^3/UL (140-415); RED BLOOD COUNT 3.01 10^6/ul (4.20-5.40); RED CELL DISTRIBUTION WIDTH 15.3 % (11.5-14.5)
[2017-09-30 05:40] LABS: WHITE BLOOD COUNT 12.3 10^3/ul (4.8-10.8)
[2017-09-30] MEDS: PANTOPRAZOLE (EC) 40 MG TAB PO (05:58)
[2017-09-30] MEDS: HYDROCODONE/APAP (5/325) TAB PO (06:26)
[2017-09-30 06:37] LABS: ANION GAP 18 (8-16); BLOOD UREA NITROGEN 53 mg/dl (7-20); CALCIUM 9.1 mg/dl (8.4-10.2); CARBON DIOXIDE 27 mmol/L (21-31); CHLORIDE 98 mmol/L (97-110); CREATININE 5.13 mg/dl (0.44-1.00); GLUCOSE 207 mg/dl (70-220); POTASSIUM 4.6 mmol/L (3.5-5.1); SODIUM 138 mmol/L (135-144)
[2017-09-30] MEDS: NIFEdipine (XL) 60 MG TAB PO (08:35)
[2017-09-30] MEDS: ASPIRIN 81 MG TAB PO (08:36)
[2017-09-30] MEDS: LINAGLIPTIN 5 MG TABLET PO (08:36)
[2017-09-30] MEDS: POTASSIUM CHLORIDE (SR) 20 MEQ TAB PO (08:36)
[2017-09-30] MEDS: ISOSORBIDE DINITRATE 20 MG TAB PO ×3 (08:37→21:07)
[2017-09-30] MEDS: FUROSEMIDE 40 MG TAB PO (08:37)
[2017-09-30] MEDS: MULTIVIT/CA CARB/B CMPLX/FA TAB PO (08:37)
[2017-09-30] MEDS: SILVER SULFADIAZINE 1% 25 GM CR TOP (08:38)
[2017-09-30] MEDS: CLOTRIMAZOLE 1% 30 GM CR TOP ×2 (08:38→21:09)
[2017-09-30] MEDS: HEPARIN 5,000 UNIT/0.5 ML VIAL SC ×2 (08:40→21:06)
[2017-09-30] MEDS: CITRIC ACID/SODIUM CITRATE 15 ML CUP PO ×3 (08:41→21:07)
[2017-09-30] MEDS: INSULIN ASPART [NOVOLOG] 3 ML PEN SC ×7 (08:48→21:00)
[2017-09-30] MEDS: INSULIN GLARGINE [LANtus] 3 ML PEN SC (21:06)
[2017-09-30] MEDS: NIFEdipine (XL) 30 MG TAB PO (21:07)
[2017-09-30] MEDS: ATORVASTATIN 40 MG TAB PO (21:08)
[2017-10-01] MEDS: HYDROCODONE/APAP (5/325) TAB PO ×2 (01:30→15:34)
[2017-10-01] MEDS: ACCU-CHEK XX ×2 (02:00)
[2017-10-01] MEDS: PANTOPRAZOLE (EC) 40 MG TAB PO (05:56)
[2017-10-01] MEDS: NIFEdipine (XL) 60 MG TAB PO (07:53)
[2017-10-01] MEDS: ISOSORBIDE DINITRATE 20 MG TAB PO ×3 (09:00→21:19)
[2017-10-01] MEDS: CITRIC ACID/SODIUM CITRATE 15 ML CUP PO ×3 (09:05→21:11)
[2017-10-01] MEDS: FUROSEMIDE 40 MG TAB PO (09:06)
[2017-10-01] MEDS: MULTIVIT/CA CARB/B CMPLX/FA TAB PO (09:06)
[2017-10-01] MEDS: POTASSIUM CHLORIDE (SR) 20 MEQ TAB PO (09:06)
[2017-10-01] MEDS: ASPIRIN 81 MG TAB PO (09:07)
[2017-10-01] MEDS: LINAGLIPTIN 5 MG TABLET PO (09:07)
[2017-10-01] MEDS: CLOTRIMAZOLE 1% 30 GM CR TOP ×2 (09:07→21:20)
[2017-10-01] MEDS: SILVER SULFADIAZINE 1% 25 GM CR TOP (09:08)
[2017-10-01] MEDS: HEPARIN 5,000 UNIT/0.5 ML VIAL SC ×2 (09:13→21:30)
[2017-10-01] MEDS: INSULIN ASPART [NOVOLOG] 3 ML PEN SC ×7 (09:13→21:00)
[2017-10-01] MEDS: EPOETIN 10000 UNITS/1 ML INJ (ESRD) SC (18:02)
[2017-10-01] MEDS: ATORVASTATIN 40 MG TAB PO (21:13)
[2017-10-01] MEDS: NIFEdipine (XL) 30 MG TAB PO (21:19)
[2017-10-01] MEDS: INSULIN GLARGINE [LANtus] 3 ML PEN SC (21:28)
[2017-10-02] MEDS: ACCU-CHEK XX ×2 (02:20)
[2017-10-02 05:51] LABS: ADD MAN DIFF? NO
[2017-10-02 05:53] LABS: BASOPHIL # 0.1 10^3/ul (0.0-0.1); BASOPHILS % 0.9 % (0.0-2.0); EOSINOPHILS # 0.3 10^3/ul (0.0-0.5); EOSINOPHILS % 2.6 % (0.0-7.0); HEMATOCRIT 28.5 % (37.0-47.0); HEMOGLOBIN 9.2 g/dl (12.0-16.0); LYMPHOCYTES # 2.4 10^3/ul (0.8-2.9); LYMPHOCYTES % 20.3 % (15.0-51.0); MEAN CORPUSCULAR HEMOGLOBIN 29.6 pg (29.0-33.0); MEAN CORPUSCULAR HGB CONC 32.3 g/dl (32.0-37.0); MEAN CORPUSCULAR VOLUME 91.6 fl (82.0-101.0); MEAN PLATELET VOLUME 9.6 fl (7.4-10.4); MONOCYTE # 0.9 10^3/ul (0.3-0.9); MONOCYTES % 7.4 % (0.0-11.0); NEUTROPHILS % 68.3 % (39.0-77.0); PLATELET COUNT 312 10^3/UL (140-415); RED BLOOD COUNT 3.11 10^6/ul (4.20-5.40); RED CELL DISTRIBUTION WIDTH 15.4 % (11.5-14.5)
[2017-10-02 05:53] LABS: WHITE BLOOD COUNT 11.8 10^3/ul (4.8-10.8)
[2017-10-02 06:53] LABS: ANION GAP 20 (8-16); BLOOD UREA NITROGEN 42 mg/dl (7-20); CALCIUM 9.1 mg/dl (8.4-10.2); CARBON DIOXIDE 25 mmol/L (21-31); CHLORIDE 97 mmol/L (97-110); CREATININE 4.49 mg/dl (0.44-1.00); GLUCOSE 219 mg/dl (70-220); POTASSIUM 4.9 mmol/L (3.5-5.1); SODIUM 137 mmol/L (135-144)
[2017-10-02] MEDS: PANTOPRAZOLE (EC) 40 MG TAB PO (07:00)
[2017-10-02] MEDS: CLOTRIMAZOLE 1% 30 GM CR TOP ×2 (09:00→21:00)
[2017-10-02] MEDS: NIFEdipine (XL) 60 MG TAB PO (09:35)
[2017-10-02] MEDS: POTASSIUM CHLORIDE (SR) 20 MEQ TAB PO (09:36)
[2017-10-02] MEDS: LINAGLIPTIN 5 MG TABLET PO (09:36)
[2017-10-02] MEDS: INSULIN ASPART [NOVOLOG] 3 ML PEN SC ×7 (09:37→21:00)
[2017-10-02] MEDS: SILVER SULFADIAZINE 1% 25 GM CR TOP (09:38)
[2017-10-02] MEDS: HEPARIN 5,000 UNIT/0.5 ML VIAL SC ×2 (09:38→21:10)
[2017-10-02] MEDS: ASPIRIN 81 MG TAB PO (09:39)
[2017-10-02] MEDS: CITRIC ACID/SODIUM CITRATE 15 ML CUP PO ×3 (09:40→21:01)
[2017-10-02] MEDS: ISOSORBIDE DINITRATE 20 MG TAB PO ×3 (09:40→21:02)
[2017-10-02] MEDS: MULTIVIT/CA CARB/B CMPLX/FA TAB PO (09:41)
[2017-10-02] MEDS: FUROSEMIDE 40 MG TAB PO (09:41)
[2017-10-02] MEDS: ATORVASTATIN 40 MG TAB PO (21:02)
[2017-10-02] MEDS: NIFEdipine (XL) 30 MG TAB PO (21:02)
[2017-10-02] MEDS: INSULIN GLARGINE [LANtus] 3 ML PEN SC (21:08)
[2017-10-02] MEDS: ONDANSETRON 4 MG INJ IV (21:11)
[2017-10-03] MEDS: ACCU-CHEK XX ×2 (02:00)
[2017-10-03] MEDS: PANTOPRAZOLE (EC) 40 MG TAB PO (06:37)
[2017-10-03] MEDS: MULTIVIT/CA CARB/B CMPLX/FA TAB PO (08:41)
[2017-10-03] MEDS: FUROSEMIDE 40 MG TAB PO (08:41)
[2017-10-03] MEDS: LINAGLIPTIN 5 MG TABLET PO (08:42)
[2017-10-03] MEDS: ISOSORBIDE DINITRATE 20 MG TAB PO ×3 (08:42→20:40)
[2017-10-03] MEDS: POTASSIUM CHLORIDE (SR) 20 MEQ TAB PO (08:42)
[2017-10-03] MEDS: ASPIRIN 81 MG TAB PO (08:42)
[2017-10-03] MEDS: CITRIC ACID/SODIUM CITRATE 15 ML CUP PO ×3 (08:43→20:41)
[2017-10-03] MEDS: INSULIN ASPART [NOVOLOG] 3 ML PEN SC ×7 (08:44→20:45)
[2017-10-03] MEDS: NIFEdipine (XL) 60 MG TAB PO (08:51)
[2017-10-03] MEDS: HEPARIN 5,000 UNIT/0.5 ML VIAL SC ×2 (08:53→20:47)
[2017-10-03] MEDS: CLOTRIMAZOLE 1% 30 GM CR TOP ×2 (08:57→20:42)
[2017-10-03] MEDS: SILVER SULFADIAZINE 1% 25 GM CR TOP (08:58)
[2017-10-03] MEDS: ERGOCALCIFEROL 50,000 UNIT CAP PO (14:15)
[2017-10-03] MEDS: EPOETIN 10000 UNITS/1 ML INJ (ESRD) SC (17:00)
[2017-10-03] MEDS: ATORVASTATIN 40 MG TAB PO (20:40)
[2017-10-03] MEDS: NIFEdipine (XL) 30 MG TAB PO (20:40)
[2017-10-03] MEDS: INSULIN GLARGINE [LANtus] 3 ML PEN SC (20:46)
[2017-10-04] MEDS: ACCU-CHEK XX ×4 (02:00→22:11)
[2017-10-04] MEDS: PANTOPRAZOLE (EC) 40 MG TAB PO (04:50)
[2017-10-04 06:23] LABS: ADD MAN DIFF? NO
[2017-10-04 06:28] LABS: BASOPHIL # 0.1 10^3/ul (0.0-0.1); BASOPHILS % 0.7 % (0.0-2.0); EOSINOPHILS # 0.3 10^3/ul (0.0-0.5); HEMATOCRIT 31.6 % (37.0-47.0); HEMOGLOBIN 9.4 g/dl (12.0-16.0); LYMPHOCYTES # 2.4 10^3/ul (0.8-2.9); LYMPHOCYTES % 20.7 % (15.0-51.0); MEAN CORPUSCULAR HEMOGLOBIN 28.4 pg (29.0-33.0); MEAN CORPUSCULAR HGB CONC 29.7 g/dl (32.0-37.0); MEAN CORPUSCULAR VOLUME 95.5 fl (82.0-101.0); MEAN PLATELET VOLUME 10.3 fl (7.4-10.4); MONOCYTE # 0.8 10^3/ul (0.3-0.9); MONOCYTES % 7.2 % (0.0-11.0); NEUTROPHIL # 7.7 10^3/ul (1.6-7.5); NEUTROPHILS % 67.6 % (39.0-77.0); PLATELET COUNT 305 10^3/UL (140-415); RED BLOOD COUNT 3.31 10^6/ul (4.20-5.40); RED CELL DISTRIBUTION WIDTH 15.6 % (11.5-14.5)
[2017-10-04 06:28] LABS: WHITE BLOOD COUNT 11.5 10^3/ul (4.8-10.8)
[2017-10-04 06:58] LABS: ANION GAP 21 (8-16); BLOOD UREA NITROGEN 45 mg/dl (7-20); CALCIUM 9.5 mg/dl (8.4-10.2); CARBON DIOXIDE 25 mmol/L (21-31); CHLORIDE 100 mmol/L (97-110); CREATININE 4.47 mg/dl (0.44-1.00); GLUCOSE 277 mg/dl (70-220); POTASSIUM 4.7 mmol/L (3.5-5.1); SODIUM 141 mmol/L (135-144)
[2017-10-04] MEDS: ISOSORBIDE DINITRATE 20 MG TAB PO ×3 (08:44→20:57)
[2017-10-04] MEDS: NIFEdipine (XL) 60 MG TAB PO (08:44)
[2017-10-04] MEDS: MULTIVIT/CA CARB/B CMPLX/FA TAB PO (08:44)
[2017-10-04] MEDS: ASPIRIN 81 MG TAB PO (08:44)
[2017-10-04] MEDS: FUROSEMIDE 40 MG TAB PO (08:45)
[2017-10-04] MEDS: POTASSIUM CHLORIDE (SR) 20 MEQ TAB PO (08:45)
[2017-10-04] MEDS: LINAGLIPTIN 5 MG TABLET PO (08:45)
[2017-10-04] MEDS: CITRIC ACID/SODIUM CITRATE 15 ML CUP PO ×3 (08:46→20:58)
[2017-10-04] MEDS: SILVER SULFADIAZINE 1% 25 GM CR TOP (08:47)
[2017-10-04] MEDS: CLOTRIMAZOLE 1% 30 GM CR TOP ×2 (08:47→20:59)
[2017-10-04] MEDS: INSULIN ASPART [NOVOLOG] 3 ML PEN SC ×7 (08:51→21:00)
[2017-10-04] MEDS: HEPARIN 5,000 UNIT/0.5 ML VIAL SC ×2 (08:53→20:48)
[2017-10-04] MEDS: HYDROCODONE/APAP (5/325) TAB PO (20:29)
[2017-10-04] MEDS: ATORVASTATIN 40 MG TAB PO (20:44)
[2017-10-04] MEDS: INSULIN GLARGINE [LANtus] 3 ML PEN SC (20:47)
[2017-10-04] MEDS: NIFEdipine (XL) 30 MG TAB PO (21:00)
[2017-10-04] MEDS: ZOLPIDEM 5 MG TAB PO (23:48)
[2017-10-05] MEDS: HYDROCODONE/APAP (5/325) TAB PO ×2 (02:28→21:07)
[2017-10-05] MEDS: PANTOPRAZOLE (EC) 40 MG TAB PO (05:57)
[2017-10-05] MEDS: ASPIRIN 81 MG TAB PO (09:07)
[2017-10-05] MEDS: MULTIVIT/CA CARB/B CMPLX/FA TAB PO (09:07)
[2017-10-05] MEDS: NIFEdipine (XL) 60 MG TAB PO (09:08)
[2017-10-05] MEDS: LINAGLIPTIN 5 MG TABLET PO (09:08)
[2017-10-05] MEDS: ISOSORBIDE DINITRATE 20 MG TAB PO ×3 (09:08→21:00)
[2017-10-05] MEDS: CITRIC ACID/SODIUM CITRATE 15 ML CUP PO ×3 (09:09→20:40)
[2017-10-05] MEDS: POTASSIUM CHLORIDE (SR) 20 MEQ TAB PO (09:09)
[2017-10-05] MEDS: HEPARIN 5,000 UNIT/0.5 ML VIAL SC ×2 (09:11→20:57)
[2017-10-05] MEDS: FUROSEMIDE 40 MG TAB PO (09:12)
[2017-10-05] MEDS: SILVER SULFADIAZINE 1% 25 GM CR TOP (09:12)
[2017-10-05] MEDS: CLOTRIMAZOLE 1% 30 GM CR TOP ×2 (09:12→21:10)
[2017-10-05] MEDS: INSULIN ASPART [NOVOLOG] 3 ML PEN SC ×7 (10:21→20:53)
[2017-10-05] MEDS: EPOETIN 10000 UNITS/1 ML INJ (ESRD) SC (19:52)
[2017-10-05] MEDS: ATORVASTATIN 40 MG TAB PO (20:40)
[2017-10-05] MEDS: INSULIN GLARGINE [LANtus] 3 ML PEN SC (20:57)
[2017-10-05] MEDS: NIFEdipine (XL) 30 MG TAB PO (21:00)
[2017-10-06] MEDS: ACCU-CHEK XX ×2 (02:00)
[2017-10-06] MEDS: PANTOPRAZOLE (EC) 40 MG TAB PO (05:44)
[2017-10-06 05:51] LABS: ADD MAN DIFF? NO
[2017-10-06 06:05] LABS: BASOPHIL # 0.1 10^3/ul (0.0-0.1); BASOPHILS % 0.8 % (0.0-2.0); EOSINOPHILS # 0.3 10^3/ul (0.0-0.5); EOSINOPHILS % 2.9 % (0.0-7.0); HEMATOCRIT 28.3 % (37.0-47.0); HEMOGLOBIN 8.7 g/dl (12.0-16.0); LYMPHOCYTES % 16.9 % (15.0-51.0); MEAN CORPUSCULAR HEMOGLOBIN 28.5 pg (29.0-33.0); MEAN CORPUSCULAR HGB CONC 30.7 g/dl (32.0-37.0); MEAN CORPUSCULAR VOLUME 92.8 fl (82.0-101.0); MEAN PLATELET VOLUME 10.2 fl (7.4-10.4); MONOCYTES % 8.7 % (0.0-11.0); NEUTROPHIL # 8.1 10^3/ul (1.6-7.5); NEUTROPHILS % 70.1 % (39.0-77.0); PLATELET COUNT 340 10^3/UL (140-415); RED BLOOD COUNT 3.05 10^6/ul (4.20-5.40); RED CELL DISTRIBUTION WIDTH 15.5 % (11.5-14.5)
[2017-10-06 06:05] LABS: WHITE BLOOD COUNT 11.6 10^3/ul (4.8-10.8)
[2017-10-06 06:52] LABS: ANION GAP 17 (8-16); BLOOD UREA NITROGEN 40 mg/dl (7-20); CALCIUM 9.1 mg/dl (8.4-10.2); CARBON DIOXIDE 31 mmol/L (21-31); CHLORIDE 93 mmol/L (97-110); GLUCOSE 317 mg/dl (70-220); POTASSIUM 4.2 mmol/L (3.5-5.1); SODIUM 137 mmol/L (135-144)
[2017-10-06] MEDS: CITRIC ACID/SODIUM CITRATE 15 ML CUP PO ×3 (08:29→21:13)
[2017-10-06] MEDS: MULTIVIT/CA CARB/B CMPLX/FA TAB PO (08:30)
[2017-10-06] MEDS: POTASSIUM CHLORIDE (SR) 20 MEQ TAB PO ×2 (08:30→09:32)
[2017-10-06] MEDS: SILVER SULFADIAZINE 1% 25 GM CR TOP (08:30)
[2017-10-06] MEDS: CLOTRIMAZOLE 1% 30 GM CR TOP ×2 (08:30→21:28)
[2017-10-06] MEDS: ASPIRIN 81 MG TAB PO (08:30)
[2017-10-06] MEDS: LINAGLIPTIN 5 MG TABLET PO (08:30)
[2017-10-06] MEDS: FUROSEMIDE 40 MG TAB PO ×2 (08:31→09:00)
[2017-10-06] MEDS: NIFEdipine (XL) 60 MG TAB PO ×2 (08:31→09:00)
[2017-10-06] MEDS: ISOSORBIDE DINITRATE 20 MG TAB PO ×4 (08:31→21:13)
[2017-10-06] MEDS: HEPARIN 5,000 UNIT/0.5 ML VIAL SC ×2 (08:38→21:23)
[2017-10-06] MEDS: INSULIN ASPART [NOVOLOG] 3 ML PEN SC ×7 (09:28→21:23)
[2017-10-06] MEDS: ALBUMIN HUMAN 25% 100 ML IV (17:35)
[2017-10-06] MEDS: ATORVASTATIN 40 MG TAB PO (21:10)
[2017-10-06] MEDS: INSULIN GLARGINE [LANtus] 3 ML PEN SC (21:23)
[2017-10-07] MEDS: ACCU-CHEK XX ×2 (02:00→05:29)
[2017-10-07 05:50] LABS: ADD MAN DIFF? NO
[2017-10-07 05:57] LABS: BASOPHIL # 0.1 10^3/ul (0.0-0.1); BASOPHILS % 0.8 % (0.0-2.0); EOSINOPHILS # 0.3 10^3/ul (0.0-0.5); EOSINOPHILS % 2.5 % (0.0-7.0); HEMOGLOBIN 8.8 g/dl (12.0-16.0); LYMPHOCYTES % 17.6 % (15.0-51.0); MEAN CORPUSCULAR HEMOGLOBIN 29.3 pg (29.0-33.0); MEAN CORPUSCULAR HGB CONC 31.4 g/dl (32.0-37.0); MEAN CORPUSCULAR VOLUME 93.3 fl (82.0-101.0); MEAN PLATELET VOLUME 10.3 fl (7.4-10.4); MONOCYTE # 0.9 10^3/ul (0.3-0.9); MONOCYTES % 7.7 % (0.0-11.0); NEUTROPHIL # 7.9 10^3/ul (1.6-7.5); NEUTROPHILS % 70.4 % (39.0-77.0); PLATELET COUNT 284 10^3/UL (140-415); RED CELL DISTRIBUTION WIDTH 15.6 % (11.5-14.5)
[2017-10-07 05:57] LABS: WHITE BLOOD COUNT 11.2 10^3/ul (4.8-10.8)
[2017-10-07 06:30] LABS: ANION GAP 19 (8-16); BLOOD UREA NITROGEN 41 mg/dl (7-20); CALCIUM 9.1 mg/dl (8.4-10.2); CARBON DIOXIDE 31 mmol/L (21-31); CHLORIDE 92 mmol/L (97-110); CREATININE 4.01 mg/dl (0.44-1.00); GLUCOSE 390 mg/dl (70-220); POTASSIUM 4.3 mmol/L (3.5-5.1); SODIUM 138 mmol/L (135-144)
[2017-10-07] MEDS: morphine 2 MG INJ IV (07:54)
[2017-10-07] MEDS: PANTOPRAZOLE (EC) 40 MG TAB PO (08:00)
[2017-10-07] MEDS: LINAGLIPTIN 5 MG TABLET PO (09:00)
[2017-10-07] MEDS: ASPIRIN 81 MG TAB PO (09:00)
[2017-10-07] MEDS: MULTIVIT/CA CARB/B CMPLX/FA TAB PO (09:00)
[2017-10-07] MEDS: NIFEdipine (XL) 60 MG TAB PO (09:00)
[2017-10-07] MEDS: ISOSORBIDE DINITRATE 20 MG TAB PO ×3 (09:00→21:32)
[2017-10-07] MEDS: SILVER SULFADIAZINE 1% 25 GM CR TOP (09:00)
[2017-10-07] MEDS: CLOTRIMAZOLE 1% 30 GM CR TOP ×2 (09:00→21:32)
[2017-10-07] MEDS: FUROSEMIDE 40 MG TAB PO (09:00)
[2017-10-07] MEDS: INSULIN ASPART [NOVOLOG] 3 ML PEN SC ×7 (09:31→21:46)
[2017-10-07] MEDS: CITRIC ACID/SODIUM CITRATE 15 ML CUP PO ×3 (12:50→21:31)
[2017-10-07] MEDS: POTASSIUM CHLORIDE (SR) 20 MEQ TAB PO (12:51)
[2017-10-07] MEDS: HEPARIN 5,000 UNIT/0.5 ML VIAL SC ×2 (12:56→21:46)
[2017-10-07] MEDS: ATORVASTATIN 40 MG TAB PO (21:31)
[2017-10-07] MEDS: INSULIN GLARGINE [LANtus] 3 ML PEN SC (21:46)
[2017-10-08] MEDS: ACCU-CHEK XX ×2 (02:00)
[2017-10-08 05:15] LABS: ADD MAN DIFF? NO
[2017-10-08 05:19] LABS: BASOPHIL # 0.1 10^3/ul (0.0-0.1); BASOPHILS % 0.7 % (0.0-2.0); EOSINOPHILS # 0.4 10^3/ul (0.0-0.5); HEMATOCRIT 27.5 % (37.0-47.0); HEMOGLOBIN 8.6 g/dl (12.0-16.0); LYMPHOCYTES % 16.2 % (15.0-51.0); MEAN CORPUSCULAR HEMOGLOBIN 29.1 pg (29.0-33.0); MEAN CORPUSCULAR HGB CONC 31.3 g/dl (32.0-37.0); MEAN CORPUSCULAR VOLUME 92.9 fl (82.0-101.0); MONOCYTE # 0.8 10^3/ul (0.3-0.9); MONOCYTES % 6.7 % (0.0-11.0); NEUTROPHILS % 72.8 % (39.0-77.0); PLATELET COUNT 272 10^3/UL (140-415); RED BLOOD COUNT 2.96 10^6/ul (4.20-5.40); RED CELL DISTRIBUTION WIDTH 15.3 % (11.5-14.5)
[2017-10-08 05:19] LABS: WHITE BLOOD COUNT 12.3 10^3/ul (4.8-10.8)
[2017-10-08 06:13] LABS: ANION GAP 21 (8-16); BLOOD UREA NITROGEN 65 mg/dl (7-20); CALCIUM 9.3 mg/dl (8.4-10.2); CARBON DIOXIDE 29 mmol/L (21-31); CHLORIDE 91 mmol/L (97-110); CREATININE 4.83 mg/dl (0.44-1.00); GLUCOSE 277 mg/dl (70-220); POTASSIUM 4.2 mmol/L (3.5-5.1); SODIUM 137 mmol/L (135-144)
[2017-10-08] MEDS: PANTOPRAZOLE (EC) 40 MG TAB PO (06:53)
[2017-10-08] MEDS: MULTIVIT/CA CARB/B CMPLX/FA TAB PO (08:50)
[2017-10-08] MEDS: ASPIRIN 81 MG TAB PO (08:51)
[2017-10-08] MEDS: LINAGLIPTIN 5 MG TABLET PO (08:51)
[2017-10-08] MEDS: FUROSEMIDE 40 MG TAB PO (08:51)
[2017-10-08] MEDS: NIFEdipine (XL) 60 MG TAB PO (08:51)
[2017-10-08] MEDS: POTASSIUM CHLORIDE (SR) 20 MEQ TAB PO (08:53)
[2017-10-08] MEDS: CITRIC ACID/SODIUM CITRATE 15 ML CUP PO ×3 (08:53→21:14)
[2017-10-08] MEDS: ISOSORBIDE DINITRATE 20 MG TAB PO ×3 (08:53→21:18)
[2017-10-08] MEDS: INSULIN ASPART [NOVOLOG] 3 ML PEN SC ×7 (08:55→21:00)
[2017-10-08] MEDS: HEPARIN 5,000 UNIT/0.5 ML VIAL SC ×2 (08:55→21:32)
[2017-10-08] MEDS: SILVER SULFADIAZINE 1% 25 GM CR TOP (09:46)
[2017-10-08] MEDS: CLOTRIMAZOLE 1% 30 GM CR TOP ×2 (09:46→21:39)
[2017-10-08] MEDS: HYDROCODONE/APAP (5/325) TAB PO (10:02)
[2017-10-08] MEDS: ALBUMIN HUMAN 25% 100 ML IV (13:45)
[2017-10-08] MEDS: EPOETIN 10000 UNITS/1 ML INJ (ESRD) SC (18:47)
[2017-10-08] MEDS: ATORVASTATIN 40 MG TAB PO (21:14)
[2017-10-08] MEDS: INSULIN GLARGINE [LANtus] 3 ML PEN SC (21:32)
[2017-10-09] MEDS: ACCU-CHEK XX ×2 (02:00)
[2017-10-09 05:25] LABS: ADD MAN DIFF? NO
[2017-10-09 05:29] LABS: WHITE BLOOD COUNT 10.7 10^3/ul (4.8-10.8)
[2017-10-09 05:29] LABS: BASOPHIL # 0.1 10^3/ul (0.0-0.1); BASOPHILS % 0.7 % (0.0-2.0); EOSINOPHILS # 0.3 10^3/ul (0.0-0.5); EOSINOPHILS % 3.2 % (0.0-7.0); HEMATOCRIT 28.6 % (37.0-47.0); HEMOGLOBIN 8.7 g/dl (12.0-16.0); LYMPHOCYTES # 1.9 10^3/ul (0.8-2.9); LYMPHOCYTES % 18.2 % (15.0-51.0); MEAN CORPUSCULAR HEMOGLOBIN 28.7 pg (29.0-33.0); MEAN CORPUSCULAR HGB CONC 30.4 g/dl (32.0-37.0); MEAN CORPUSCULAR VOLUME 94.4 fl (82.0-101.0); MEAN PLATELET VOLUME 10.1 fl (7.4-10.4); MONOCYTE # 0.7 10^3/ul (0.3-0.9); MONOCYTES % 6.9 % (0.0-11.0); NEUTROPHIL # 7.5 10^3/ul (1.6-7.5); PLATELET COUNT 277 10^3/UL (140-415); RED BLOOD COUNT 3.03 10^6/ul (4.20-5.40); RED CELL DISTRIBUTION WIDTH 15.9 % (11.5-14.5)
[2017-10-09 05:50] LABS: ANION GAP 21 (8-16); BLOOD UREA NITROGEN 42 mg/dl (7-20); CALCIUM 9.4 mg/dl (8.4-10.2); CARBON DIOXIDE 27 mmol/L (21-31); CHLORIDE 99 mmol/L (97-110); CREATININE 3.72 mg/dl (0.44-1.00); GLUCOSE 245 mg/dl (70-220); SODIUM 142 mmol/L (135-144)
[2017-10-09] MEDS: PANTOPRAZOLE (EC) 40 MG TAB PO (06:16)
[2017-10-09] MEDS: NIFEdipine (XL) 60 MG TAB PO (09:01)
[2017-10-09] MEDS: ISOSORBIDE DINITRATE 20 MG TAB PO ×3 (09:01→21:46)
[2017-10-09] MEDS: ASPIRIN 81 MG TAB PO (09:02)
[2017-10-09] MEDS: LINAGLIPTIN 5 MG TABLET PO (09:02)
[2017-10-09] MEDS: FUROSEMIDE 40 MG TAB PO (09:02)
[2017-10-09] MEDS: MULTIVIT/CA CARB/B CMPLX/FA TAB PO (09:02)
[2017-10-09] MEDS: POTASSIUM CHLORIDE (SR) 20 MEQ TAB PO (09:03)
[2017-10-09] MEDS: CITRIC ACID/SODIUM CITRATE 15 ML CUP PO ×3 (09:03→21:46)
[2017-10-09] MEDS: HEPARIN 5,000 UNIT/0.5 ML VIAL SC ×2 (09:05→21:48)
[2017-10-09] MEDS: INSULIN ASPART [NOVOLOG] 3 ML PEN SC ×7 (09:07→21:59)
[2017-10-09] MEDS: CLOTRIMAZOLE 1% 30 GM CR TOP ×2 (09:13→21:00)
[2017-10-09] MEDS: SILVER SULFADIAZINE 1% 25 GM CR TOP (09:13)
[2017-10-09] MEDS: ATORVASTATIN 40 MG TAB PO (21:45)
[2017-10-09] MEDS: INSULIN GLARGINE [LANtus] 3 ML PEN SC (21:57)
[2017-10-10] MEDS: ACCU-CHEK XX ×2 (02:17→02:18)
[2017-10-10 05:09] LABS: ADD MAN DIFF? NO
[2017-10-10 05:13] LABS: BASOPHIL # 0.1 10^3/ul (0.0-0.1); BASOPHILS % 0.6 % (0.0-2.0); EOSINOPHILS # 0.3 10^3/ul (0.0-0.5); EOSINOPHILS % 2.6 % (0.0-7.0); HEMATOCRIT 28.7 % (37.0-47.0); HEMOGLOBIN 8.7 g/dl (12.0-16.0); LYMPHOCYTES # 1.7 10^3/ul (0.8-2.9); LYMPHOCYTES % 16.6 % (15.0-51.0); MEAN CORPUSCULAR HEMOGLOBIN 28.2 pg (29.0-33.0); MEAN CORPUSCULAR HGB CONC 30.3 g/dl (32.0-37.0); MEAN CORPUSCULAR VOLUME 92.9 fl (82.0-101.0); MEAN PLATELET VOLUME 10.1 fl (7.4-10.4); MONOCYTE # 0.7 10^3/ul (0.3-0.9); MONOCYTES % 6.9 % (0.0-11.0); NEUTROPHIL # 7.4 10^3/ul (1.6-7.5); NEUTROPHILS % 72.4 % (39.0-77.0); PLATELET COUNT 279 10^3/UL (140-415); RED BLOOD COUNT 3.09 10^6/ul (4.20-5.40); RED CELL DISTRIBUTION WIDTH 16.2 % (11.5-14.5)
[2017-10-10 05:13] LABS: WHITE BLOOD COUNT 10.3 10^3/ul (4.8-10.8)
[2017-10-10 05:35] LABS: ANION GAP 22 (8-16); BLOOD UREA NITROGEN 60 mg/dl (7-20); CALCIUM 9.2 mg/dl (8.4-10.2); CARBON DIOXIDE 24 mmol/L (21-31); CHLORIDE 99 mmol/L (97-110); GLUCOSE 282 mg/dl (70-220); POTASSIUM 5.2 mmol/L (3.5-5.1); SODIUM 140 mmol/L (135-144)
[2017-10-10] MEDS: PANTOPRAZOLE (EC) 40 MG TAB PO (06:00)
[2017-10-10] MEDS: ERGOCALCIFEROL 50,000 UNIT CAP PO (09:00)
[2017-10-10] MEDS: INSULIN ASPART [NOVOLOG] 3 ML PEN SC ×7 (09:36→21:44)
[2017-10-10] MEDS: ASPIRIN 81 MG TAB PO (09:39)
[2017-10-10] MEDS: ISOSORBIDE DINITRATE 20 MG TAB PO ×3 (09:40→21:40)
[2017-10-10] MEDS: FUROSEMIDE 40 MG TAB PO (09:40)
[2017-10-10] MEDS: NIFEdipine (XL) 60 MG TAB PO (09:41)
[2017-10-10] MEDS: POTASSIUM CHLORIDE (SR) 20 MEQ TAB PO (09:41)
[2017-10-10] MEDS: LINAGLIPTIN 5 MG TABLET PO (09:41)
[2017-10-10] MEDS: CITRIC ACID/SODIUM CITRATE 15 ML CUP PO ×3 (09:42→21:39)
[2017-10-10] MEDS: HEPARIN 5,000 UNIT/0.5 ML VIAL SC ×2 (09:43→21:47)
[2017-10-10] MEDS: CLOTRIMAZOLE 1% 30 GM CR TOP ×2 (09:43→21:47)
[2017-10-10] MEDS: SILVER SULFADIAZINE 1% 25 GM CR TOP (09:43)
[2017-10-10] MEDS: MULTIVIT/CA CARB/B CMPLX/FA TAB PO (09:50)
[2017-10-10] MEDS: ATORVASTATIN 40 MG TAB PO (21:39)
[2017-10-10] MEDS: INSULIN GLARGINE [LANtus] 3 ML PEN SC (21:46)
[2017-10-11] MEDS: ACCU-CHEK XX ×2 (02:00)
[2017-10-11 05:19] LABS: ADD MAN DIFF? NO
[2017-10-11 05:23] LABS: BASOPHIL # 0.1 10^3/ul (0.0-0.1); BASOPHILS % 0.9 % (0.0-2.0); EOSINOPHILS # 0.4 10^3/ul (0.0-0.5); HEMOGLOBIN 8.6 g/dl (12.0-16.0); LYMPHOCYTES % 20.3 % (15.0-51.0); MEAN CORPUSCULAR HEMOGLOBIN 28.8 pg (29.0-33.0); MEAN CORPUSCULAR HGB CONC 30.7 g/dl (32.0-37.0); MEAN CORPUSCULAR VOLUME 93.6 fl (82.0-101.0); MEAN PLATELET VOLUME 10.1 fl (7.4-10.4); MONOCYTE # 0.9 10^3/ul (0.3-0.9); MONOCYTES % 8.9 % (0.0-11.0); NEUTROPHIL # 6.3 10^3/ul (1.6-7.5); NEUTROPHILS % 65.1 % (39.0-77.0); PLATELET COUNT 286 10^3/UL (140-415); RED BLOOD COUNT 2.99 10^6/ul (4.20-5.40); RED CELL DISTRIBUTION WIDTH 16.7 % (11.5-14.5)
[2017-10-11 05:23] LABS: WHITE BLOOD COUNT 9.7 10^3/ul (4.8-10.8)
[2017-10-11] MEDS: PANTOPRAZOLE (EC) 40 MG TAB PO (05:48)
[2017-10-11 06:07] LABS: ANION GAP 18 (8-16); BLOOD UREA NITROGEN 36 mg/dl (7-20); CALCIUM 9.6 mg/dl (8.4-10.2); CARBON DIOXIDE 26 mmol/L (21-31); CHLORIDE 104 mmol/L (97-110); CREATININE 3.44 mg/dl (0.44-1.00); GLUCOSE 113 mg/dl (70-220); POTASSIUM 4.6 mmol/L (3.5-5.1); SODIUM 143 mmol/L (135-144)
[2017-10-11] MEDS: INSULIN ASPART [NOVOLOG] 3 ML PEN SC ×7 (08:40→21:18)
[2017-10-11] MEDS: ISOSORBIDE DINITRATE 20 MG TAB PO ×3 (09:00→21:20)
[2017-10-11] MEDS: HEPARIN 5,000 UNIT/0.5 ML VIAL SC ×2 (10:00→21:19)
[2017-10-11] MEDS: CITRIC ACID/SODIUM CITRATE 15 ML CUP PO ×3 (10:01→21:21)
[2017-10-11] MEDS: LINAGLIPTIN 5 MG TABLET PO (10:02)
[2017-10-11] MEDS: MULTIVIT/CA CARB/B CMPLX/FA TAB PO (10:02)
[2017-10-11] MEDS: FUROSEMIDE 40 MG TAB PO (10:02)
[2017-10-11] MEDS: POTASSIUM CHLORIDE (SR) 20 MEQ TAB PO (10:03)
[2017-10-11] MEDS: NIFEdipine (XL) 60 MG TAB PO (10:03)
[2017-10-11] MEDS: SILVER SULFADIAZINE 1% 25 GM CR TOP (10:04)
[2017-10-11] MEDS: ASPIRIN 81 MG TAB PO (10:04)
[2017-10-11] MEDS: CLOTRIMAZOLE 1% 30 GM CR TOP ×2 (10:05→21:21)
[2017-10-11] MEDS: INSULIN GLARGINE [LANtus] 3 ML PEN SC (21:17)
[2017-10-11] MEDS: ATORVASTATIN 40 MG TAB PO (21:20)
[2017-10-12] MEDS: ACCU-CHEK XX ×3 (02:00→21:39)
[2017-10-12 05:24] LABS: ADD MAN DIFF? NO
[2017-10-12 05:33] LABS: BASOPHIL # 0.1 10^3/ul (0.0-0.1); BASOPHILS % 0.9 % (0.0-2.0); EOSINOPHILS # 0.4 10^3/ul (0.0-0.5); EOSINOPHILS % 3.8 % (0.0-7.0); LYMPHOCYTES # 1.9 10^3/ul (0.8-2.9); LYMPHOCYTES % 19.1 % (15.0-51.0); MEAN CORPUSCULAR HEMOGLOBIN 28.8 pg (29.0-33.0); MEAN CORPUSCULAR VOLUME 92.9 fl (82.0-101.0); MEAN PLATELET VOLUME 9.9 fl (7.4-10.4); MONOCYTE # 0.9 10^3/ul (0.3-0.9); MONOCYTES % 8.7 % (0.0-11.0); NEUTROPHIL # 6.8 10^3/ul (1.6-7.5); NEUTROPHILS % 66.6 % (39.0-77.0); PLATELET COUNT 302 10^3/UL (140-415); RED BLOOD COUNT 3.12 10^6/ul (4.20-5.40)
[2017-10-12 05:33] LABS: WHITE BLOOD COUNT 10.1 10^3/ul (4.8-10.8)
[2017-10-12 06:06] LABS: ANION GAP 21 (8-16); BLOOD UREA NITROGEN 48 mg/dl (7-20); CALCIUM 9.6 mg/dl (8.4-10.2); CARBON DIOXIDE 24 mmol/L (21-31); CHLORIDE 103 mmol/L (97-110); CREATININE 4.55 mg/dl (0.44-1.00); GLUCOSE 183 mg/dl (70-220); POTASSIUM 5.2 mmol/L (3.5-5.1); SODIUM 143 mmol/L (135-144)
[2017-10-12] MEDS: PANTOPRAZOLE (EC) 40 MG TAB PO (06:14)
[2017-10-12] MEDS: NIFEdipine (XL) 60 MG TAB PO (09:00)
[2017-10-12] MEDS: ISOSORBIDE DINITRATE 20 MG TAB PO ×3 (09:00→20:20)
[2017-10-12] MEDS: FUROSEMIDE 40 MG TAB PO (09:04)
[2017-10-12] MEDS: ASPIRIN 81 MG TAB PO (09:04)
[2017-10-12] MEDS: LINAGLIPTIN 5 MG TABLET PO (09:05)
[2017-10-12] MEDS: CLOTRIMAZOLE 1% 30 GM CR TOP ×2 (09:06→21:00)
[2017-10-12] MEDS: HEPARIN 5,000 UNIT/0.5 ML VIAL SC ×2 (09:09→20:26)
[2017-10-12] MEDS: INSULIN ASPART [NOVOLOG] 3 ML PEN SC ×7 (09:10→21:00)
[2017-10-12] MEDS: CITRIC ACID/SODIUM CITRATE 15 ML CUP PO ×3 (09:20→20:24)
[2017-10-12] MEDS: POTASSIUM CHLORIDE (SR) 20 MEQ TAB PO (09:20)
[2017-10-12] MEDS: MULTIVIT/CA CARB/B CMPLX/FA TAB PO (09:20)
[2017-10-12] MEDS: SILVER SULFADIAZINE 1% 25 GM CR TOP (09:21)
[2017-10-12] MEDS: HEPARIN 1000 UNITS/ML 10 ML INJ CATHETER (15:00)
[2017-10-12] MEDS: ATORVASTATIN 40 MG TAB PO (20:20)
[2017-10-12] MEDS: EPOETIN 10000 UNITS/1 ML INJ (ESRD) SC (20:24)
[2017-10-12] MEDS: INSULIN GLARGINE [LANtus] 3 ML PEN SC (20:25)
[2017-10-13] MEDS: PANTOPRAZOLE (EC) 40 MG TAB PO (05:52)
[2017-10-13] MEDS: ASPIRIN 81 MG TAB PO (08:43)
[2017-10-13] MEDS: LINAGLIPTIN 5 MG TABLET PO (08:43)
[2017-10-13] MEDS: POTASSIUM CHLORIDE (SR) 20 MEQ TAB PO (08:43)
[2017-10-13] MEDS: MULTIVIT/CA CARB/B CMPLX/FA TAB PO (08:43)
[2017-10-13] MEDS: FUROSEMIDE 40 MG TAB PO (08:44)
[2017-10-13] MEDS: NIFEdipine (XL) 60 MG TAB PO (08:44)
[2017-10-13] MEDS: ISOSORBIDE DINITRATE 20 MG TAB PO ×3 (08:44→20:22)
[2017-10-13] MEDS: CITRIC ACID/SODIUM CITRATE 15 ML CUP PO ×3 (08:45→20:22)
[2017-10-13] MEDS: HEPARIN 5,000 UNIT/0.5 ML VIAL SC ×2 (08:46→20:29)
[2017-10-13] MEDS: INSULIN ASPART [NOVOLOG] 3 ML PEN SC ×8 (08:46→20:16)
[2017-10-13] MEDS: SILVER SULFADIAZINE 1% 25 GM CR TOP (09:55)
[2017-10-13] MEDS: CLOTRIMAZOLE 1% 30 GM CR TOP ×2 (09:55→20:24)
[2017-10-13] MEDS: ARTIFICIAL TEARS 15 ML OPH BOTH EYES (09:55)
[2017-10-13] MEDS: INSULIN GLARGINE [LANtus] 3 ML PEN SC (19:52)
[2017-10-13] MEDS: ATORVASTATIN 40 MG TAB PO (20:22)
[2017-10-14] MEDS: ACCU-CHEK XX (01:49)
[2017-10-14 05:58] LABS: ADD MAN DIFF? NO; BASOPHIL # 0.1 10^3/ul (0.0-0.1); BASOPHILS % 0.9 % (0.0-2.0); EOSINOPHILS # 0.3 10^3/ul (0.0-0.5); EOSINOPHILS % 3.6 % (0.0-7.0); HEMATOCRIT 29.7 % (37.0-47.0); HEMOGLOBIN 9.3 g/dl (12.0-16.0); LYMPHOCYTES # 1.9 10^3/ul (0.8-2.9); LYMPHOCYTES % 23.6 % (15.0-51.0); MEAN CORPUSCULAR HEMOGLOBIN 29.2 pg (29.0-33.0); MEAN CORPUSCULAR HGB CONC 31.3 g/dl (32.0-37.0); MEAN CORPUSCULAR VOLUME 93.4 fl (82.0-101.0); MEAN PLATELET VOLUME 10.3 fl (7.4-10.4); MONOCYTE # 0.9 10^3/ul (0.3-0.9); MONOCYTES % 10.8 % (0.0-11.0); NEUTROPHIL # 4.9 10^3/ul (1.6-7.5); NEUTROPHILS % 60.4 % (39.0-77.0); PLATELET COUNT 274 10^3/UL (140-415); RED BLOOD COUNT 3.18 10^6/ul (4.20-5.40); RED CELL DISTRIBUTION WIDTH 17.1 % (11.5-14.5)
[2017-10-14 05:58] LABS: WHITE BLOOD COUNT 8.1 10^3/ul (4.8-10.8)
[2017-10-14] MEDS: PANTOPRAZOLE (EC) 40 MG TAB PO (06:11)
[2017-10-14 06:52] LABS: ANION GAP 20 (8-16); BLOOD UREA NITROGEN 53 mg/dl (7-20); CALCIUM 8.8 mg/dl (8.4-10.2); CARBON DIOXIDE 25 mmol/L (21-31); CHLORIDE 101 mmol/L (97-110); CREATININE 4.63 mg/dl (0.44-1.00); GLUCOSE 201 mg/dl (70-220); POTASSIUM 4.9 mmol/L (3.5-5.1); SODIUM 141 mmol/L (135-144)
[2017-10-14] MEDS: INSULIN ASPART [NOVOLOG] 3 ML PEN SC ×7 (07:50→21:00)
[2017-10-14] MEDS: ASPIRIN 81 MG TAB PO (09:00)
[2017-10-14] MEDS: SILVER SULFADIAZINE 1% 25 GM CR TOP (09:00)
[2017-10-14] MEDS: CLOTRIMAZOLE 1% 30 GM CR TOP ×2 (09:00→21:00)
[2017-10-14] MEDS: NIFEdipine (XL) 60 MG TAB PO ×2 (10:30→13:17)
[2017-10-14] MEDS: MULTIVIT/CA CARB/B CMPLX/FA TAB PO (10:30)
[2017-10-14] MEDS: POTASSIUM CHLORIDE (SR) 20 MEQ TAB PO (10:31)
[2017-10-14] MEDS: FUROSEMIDE 40 MG TAB PO (10:31)
[2017-10-14] MEDS: CITRIC ACID/SODIUM CITRATE 15 ML CUP PO ×3 (10:32→20:27)
[2017-10-14] MEDS: LINAGLIPTIN 5 MG TABLET PO (10:32)
[2017-10-14] MEDS: ISOSORBIDE DINITRATE 20 MG TAB PO ×3 (10:35→20:29)
[2017-10-14] MEDS: HEPARIN 5,000 UNIT/0.5 ML VIAL SC ×2 (11:21→20:33)
[2017-10-14] MEDS: HYDROCODONE/APAP (5/325) TAB PO (13:13)
[2017-10-14 18:59] LABS: ADD UMIC YES; UR ASCORBIC ACID NEGATIVE (NEGATIVE); UR BACTERIA FEW /HPF (NONE SEEN); UR BILIRUBIN (Dip) NEGATIVE (NEGATIVE); UR BLOOD (Dip) NEGATIVE (NEGATIVE); UR CLARITY CLOUDY (CLEAR); UR COLOR YELLOW (YELLOW); UR GLUCOSE (Dip) 2+ mg/dL (NEGATIVE); UR KETONES (Dip) NEGATIVE (NEGATIVE); UR LEUKOCYTE ESTERASE (Dip) 3+ Leu/ul (NEGATIVE); UR MUCUS FEW /HPF (NONE SEEN); UR NITRITE (Dip) NEGATIVE (NEGATIVE); UR RBC 6 /HPF (0-5); UR SPECIFIC GRAVITY (Dip) 1.011 (1.003-1.030); UR TOTAL PROTEIN (Dip) 2+ mg/dl (NEGATIVE); UR UROBILINOGEN (Dip) NEGATIVE (NEGATIVE); UR WBC > 182 /HPF (0-5)
[2017-10-14] MEDS: ATORVASTATIN 40 MG TAB PO (20:30)
[2017-10-14] MEDS: INSULIN GLARGINE [LANtus] 3 ML PEN SC (22:12)
[2017-10-15] MEDS: ACCU-CHEK XX (02:00)
[2017-10-15] MEDS: PANTOPRAZOLE (EC) 40 MG TAB PO (05:33)
[2017-10-15 06:20] LABS: ANION GAP 22 (8-16); BLOOD UREA NITROGEN 67 mg/dl (7-20); CALCIUM 8.7 mg/dl (8.4-10.2); CARBON DIOXIDE 22 mmol/L (21-31); CHLORIDE 101 mmol/L (97-110); CREATININE 5.41 mg/dl (0.44-1.00); GLUCOSE 228 mg/dl (70-220); POTASSIUM 5.1 mmol/L (3.5-5.1); SODIUM 140 mmol/L (135-144)
[2017-10-15] MEDS: ISOSORBIDE DINITRATE 20 MG TAB PO ×3 (09:00→21:22)
[2017-10-15] MEDS: INSULIN ASPART [NOVOLOG] 3 ML PEN SC ×7 (09:25→21:21)
[2017-10-15] MEDS: ASPIRIN 81 MG TAB PO (09:27)
[2017-10-15] MEDS: LINAGLIPTIN 5 MG TABLET PO (09:27)
[2017-10-15] MEDS: MULTIVIT/CA CARB/B CMPLX/FA TAB PO (09:27)
[2017-10-15] MEDS: POTASSIUM CHLORIDE (SR) 20 MEQ TAB PO (09:27)
[2017-10-15] MEDS: FUROSEMIDE 40 MG TAB PO (09:29)
[2017-10-15] MEDS: CITRIC ACID/SODIUM CITRATE 15 ML CUP PO ×3 (09:29→21:21)
[2017-10-15] MEDS: HEPARIN 5,000 UNIT/0.5 ML VIAL SC ×2 (09:32→21:17)
[2017-10-15] MEDS: SILVER SULFADIAZINE 1% 25 GM CR TOP (09:33)
[2017-10-15] MEDS: CLOTRIMAZOLE 1% 30 GM CR TOP ×2 (09:34→21:22)
[2017-10-15] MEDS: EPOETIN 10000 UNITS/1 ML INJ (ESRD) SC (18:28)
[2017-10-15] MEDS: INSULIN GLARGINE [LANtus] 3 ML PEN SC (21:16)
[2017-10-15] MEDS: ATORVASTATIN 40 MG TAB PO (21:21)
[2017-10-16] MEDS: ACCU-CHEK XX (02:35)
[2017-10-16] MEDS: PANTOPRAZOLE (EC) 40 MG TAB PO (05:16)
[2017-10-16] MEDS: INSULIN ASPART [NOVOLOG] 3 ML PEN SC ×7 (09:25→21:00)
[2017-10-16] MEDS: HEPARIN 5,000 UNIT/0.5 ML VIAL SC ×2 (09:26→21:29)
[2017-10-16] MEDS: CITRIC ACID/SODIUM CITRATE 15 ML CUP PO ×3 (09:28→21:26)
[2017-10-16] MEDS: ASPIRIN 81 MG TAB PO (09:28)
[2017-10-16] MEDS: ISOSORBIDE DINITRATE 20 MG TAB PO ×3 (09:28→21:26)
[2017-10-16] MEDS: MULTIVIT/CA CARB/B CMPLX/FA TAB PO (09:29)
[2017-10-16] MEDS: LINAGLIPTIN 5 MG TABLET PO (09:29)
[2017-10-16] MEDS: FUROSEMIDE 40 MG TAB PO (09:29)
[2017-10-16] MEDS: NIFEdipine (XL) 60 MG TAB PO (09:29)
[2017-10-16] MEDS: POTASSIUM CHLORIDE (SR) 20 MEQ TAB PO (09:29)
[2017-10-16] MEDS: SILVER SULFADIAZINE 1% 25 GM CR TOP (09:30)
[2017-10-16] MEDS: CLOTRIMAZOLE 1% 30 GM CR TOP ×2 (09:30→21:27)
[2017-10-16] MEDS: ATORVASTATIN 40 MG TAB PO (21:26)
[2017-10-16] MEDS: INSULIN GLARGINE [LANtus] 3 ML PEN SC (21:29)
[2017-10-17] MEDS: ACCU-CHEK XX (02:00)
[2017-10-17] MEDS: PANTOPRAZOLE (EC) 40 MG TAB PO (06:18)
[2017-10-17] MEDS: CLOTRIMAZOLE 1% 30 GM CR TOP ×2 (09:00→20:22)
[2017-10-17] MEDS: ERGOCALCIFEROL 50,000 UNIT CAP PO (09:00)
[2017-10-17] MEDS: ISOSORBIDE DINITRATE 20 MG TAB PO ×3 (09:00→21:00)
[2017-10-17] MEDS: NIFEdipine (XL) 60 MG TAB PO (09:00)
[2017-10-17] MEDS: FUROSEMIDE 40 MG TAB PO (09:00)
[2017-10-17] MEDS: SILVER SULFADIAZINE 1% 25 GM CR TOP (09:00)
[2017-10-17] MEDS: CITRIC ACID/SODIUM CITRATE 15 ML CUP PO ×3 (10:35→20:20)
[2017-10-17] MEDS: MULTIVIT/CA CARB/B CMPLX/FA TAB PO (10:35)
[2017-10-17] MEDS: LINAGLIPTIN 5 MG TABLET PO (10:35)
[2017-10-17] MEDS: ASPIRIN 81 MG TAB PO (10:35)
[2017-10-17] MEDS: POTASSIUM CHLORIDE (SR) 20 MEQ TAB PO (10:36)
[2017-10-17] MEDS: HEPARIN 5,000 UNIT/0.5 ML VIAL SC ×2 (10:41→20:19)
[2017-10-17] MEDS: INSULIN ASPART [NOVOLOG] 3 ML PEN SC ×7 (10:42→20:21)
[2017-10-17] MEDS: INSULIN GLARGINE [LANtus] 3 ML PEN SC (20:18)
[2017-10-17] MEDS: ATORVASTATIN 40 MG TAB PO (20:19)
[2017-10-18] MEDS: ACCU-CHEK XX ×2 (02:00→22:08)
[2017-10-18] MEDS: PANTOPRAZOLE (EC) 40 MG TAB PO (05:12)
[2017-10-18] MEDS: INSULIN ASPART [NOVOLOG] 3 ML PEN SC ×7 (08:41→21:00)
[2017-10-18] MEDS: HEPARIN 5,000 UNIT/0.5 ML VIAL SC ×2 (08:42→21:36)
[2017-10-18] MEDS: LINAGLIPTIN 5 MG TABLET PO (08:44)
[2017-10-18] MEDS: FUROSEMIDE 40 MG TAB PO (08:44)
[2017-10-18] MEDS: ASPIRIN 81 MG TAB PO (08:45)
[2017-10-18] MEDS: ISOSORBIDE DINITRATE 20 MG TAB PO ×3 (08:45→21:32)
[2017-10-18] MEDS: MULTIVIT/CA CARB/B CMPLX/FA TAB PO (08:45)
[2017-10-18] MEDS: CITRIC ACID/SODIUM CITRATE 15 ML CUP PO ×3 (08:46→21:33)
[2017-10-18] MEDS: NIFEdipine (XL) 60 MG TAB PO (08:46)
[2017-10-18] MEDS: POTASSIUM CHLORIDE (SR) 20 MEQ TAB PO (08:46)
[2017-10-18] MEDS: CLOTRIMAZOLE 1% 30 GM CR TOP ×2 (08:46→21:36)
[2017-10-18] MEDS: SILVER SULFADIAZINE 1% 25 GM CR TOP (08:47)
[2017-10-18] MEDS: ATORVASTATIN 40 MG TAB PO (21:32)
[2017-10-18] MEDS: INSULIN GLARGINE [LANtus] 3 ML PEN SC (21:35)
[2017-10-19 05:52] LABS: ADD MAN DIFF? NO
[2017-10-19 06:04] LABS: WHITE BLOOD COUNT 8.8 10^3/ul (4.8-10.8)
[2017-10-19 06:04] LABS: BASOPHIL # 0.1 10^3/ul (0.0-0.1); BASOPHILS % 0.9 % (0.0-2.0); EOSINOPHILS # 0.3 10^3/ul (0.0-0.5); EOSINOPHILS % 3.3 % (0.0-7.0); HEMATOCRIT 27.8 % (37.0-47.0); HEMOGLOBIN 8.8 g/dl (12.0-16.0); LYMPHOCYTES # 2.1 10^3/ul (0.8-2.9); LYMPHOCYTES % 24.1 % (15.0-51.0); MEAN CORPUSCULAR HEMOGLOBIN 29.3 pg (29.0-33.0); MEAN CORPUSCULAR HGB CONC 31.7 g/dl (32.0-37.0); MEAN CORPUSCULAR VOLUME 92.7 fl (82.0-101.0); MEAN PLATELET VOLUME 10.3 fl (7.4-10.4); MONOCYTE # 0.8 10^3/ul (0.3-0.9); MONOCYTES % 9.2 % (0.0-11.0); NEUTROPHIL # 5.5 10^3/ul (1.6-7.5); PLATELET COUNT 274 10^3/UL (140-415); RED CELL DISTRIBUTION WIDTH 17.6 % (11.5-14.5)
[2017-10-19] MEDS: PANTOPRAZOLE (EC) 40 MG TAB PO (06:16)
[2017-10-19 06:20] LABS: ANION GAP 20 (8-16); BLOOD UREA NITROGEN 57 mg/dl (7-20); CALCIUM 8.7 mg/dl (8.4-10.2); CARBON DIOXIDE 26 mmol/L (21-31); CHLORIDE 98 mmol/L (97-110); CREATININE 4.85 mg/dl (0.44-1.00); GLUCOSE 150 mg/dl (70-220); POTASSIUM 4.6 mmol/L (3.5-5.1); SODIUM 139 mmol/L (135-144)
[2017-10-19] MEDS: INSULIN ASPART [NOVOLOG] 3 ML PEN SC ×7 (07:50→21:00)
[2017-10-19] MEDS: ISOSORBIDE DINITRATE 20 MG TAB PO ×3 (09:00→21:00)
[2017-10-19] MEDS: NIFEdipine (XL) 60 MG TAB PO (09:00)
[2017-10-19] MEDS: FUROSEMIDE 40 MG TAB PO (09:00)
[2017-10-19] MEDS: CITRIC ACID/SODIUM CITRATE 15 ML CUP PO ×3 (09:07→23:00)
[2017-10-19] MEDS: POTASSIUM CHLORIDE (SR) 20 MEQ TAB PO (09:07)
[2017-10-19] MEDS: ASPIRIN 81 MG TAB PO (09:07)
[2017-10-19] MEDS: LINAGLIPTIN 5 MG TABLET PO (09:08)
[2017-10-19] MEDS: MULTIVIT/CA CARB/B CMPLX/FA TAB PO (09:08)
[2017-10-19] MEDS: CLOTRIMAZOLE 1% 30 GM CR TOP ×2 (09:09→23:01)
[2017-10-19] MEDS: SILVER SULFADIAZINE 1% 25 GM CR TOP (09:09)
[2017-10-19] MEDS: HEPARIN 5,000 UNIT/0.5 ML VIAL SC ×2 (09:17→20:36)
[2017-10-19] MEDS: IODIXANOL LOCM 100 ML BTL (09:31)
[2017-10-19] MEDS: SOD CHLORIDE 0.9% 100 ML (09:31)
[2017-10-19] MEDS: INSULIN GLARGINE [LANtus] 3 ML PEN SC (20:35)
[2017-10-19] MEDS: HEPARIN 1000 UNITS/ML 10 ML INJ CATHETER (21:00)
[2017-10-19] MEDS: ACCU-CHEK XX (22:24)
[2017-10-19] MEDS: EPOETIN 10000 UNITS/1 ML INJ (ESRD) SC (22:59)
[2017-10-19] MEDS: ATORVASTATIN 40 MG TAB PO (23:00)
[2017-10-20] MEDS: PANTOPRAZOLE (EC) 40 MG TAB PO (05:02)
[2017-10-20] MEDS: INSULIN ASPART [NOVOLOG] 3 ML PEN SC ×7 (07:50→20:39)
[2017-10-20] MEDS: NIFEdipine (XL) 60 MG TAB PO (09:18)
[2017-10-20] MEDS: CITRIC ACID/SODIUM CITRATE 15 ML CUP PO ×4 (09:18→21:29)
[2017-10-20] MEDS: MULTIVIT/CA CARB/B CMPLX/FA TAB PO (09:18)
[2017-10-20] MEDS: POTASSIUM CHLORIDE (SR) 20 MEQ TAB PO (09:18)
[2017-10-20] MEDS: ASPIRIN 81 MG TAB PO (09:19)
[2017-10-20] MEDS: LINAGLIPTIN 5 MG TABLET PO (09:19)
[2017-10-20] MEDS: FUROSEMIDE 40 MG TAB PO (09:19)
[2017-10-20] MEDS: SILVER SULFADIAZINE 1% 25 GM CR TOP (09:20)
[2017-10-20] MEDS: CLOTRIMAZOLE 1% 30 GM CR TOP ×2 (09:20→21:30)
[2017-10-20] MEDS: HEPARIN 5,000 UNIT/0.5 ML VIAL SC ×2 (09:21→20:40)
[2017-10-20] MEDS: ISOSORBIDE DINITRATE 20 MG TAB PO ×4 (09:26→21:29)
[2017-10-20] MEDS: INSULIN GLARGINE [LANtus] 3 ML PEN SC (20:39)
[2017-10-20] MEDS: ATORVASTATIN 40 MG TAB PO (20:40)
[2017-10-21] MEDS: ACCU-CHEK XX ×2 (02:00→22:02)
[2017-10-21 06:12] LABS: ADD MAN DIFF? NO
[2017-10-21] MEDS: PANTOPRAZOLE (EC) 40 MG TAB PO (06:19)
[2017-10-21 06:21] LABS: BASOPHIL # 0.1 10^3/ul (0.0-0.1); BASOPHILS % 0.6 % (0.0-2.0); EOSINOPHILS # 0.4 10^3/ul (0.0-0.5); EOSINOPHILS % 4.2 % (0.0-7.0); HEMATOCRIT 29.2 % (37.0-47.0); HEMOGLOBIN 9.3 g/dl (12.0-16.0); LYMPHOCYTES % 20.7 % (15.0-51.0); MEAN CORPUSCULAR HEMOGLOBIN 29.7 pg (29.0-33.0); MEAN CORPUSCULAR HGB CONC 31.8 g/dl (32.0-37.0); MEAN CORPUSCULAR VOLUME 93.3 fl (82.0-101.0); MEAN PLATELET VOLUME 10.4 fl (7.4-10.4); MONOCYTE # 0.8 10^3/ul (0.3-0.9); MONOCYTES % 8.1 % (0.0-11.0); NEUTROPHIL # 6.4 10^3/ul (1.6-7.5); NEUTROPHILS % 65.9 % (39.0-77.0); PLATELET COUNT 240 10^3/UL (140-415); RED BLOOD COUNT 3.13 10^6/ul (4.20-5.40); RED CELL DISTRIBUTION WIDTH 17.4 % (11.5-14.5)
[2017-10-21 06:21] LABS: WHITE BLOOD COUNT 9.7 10^3/ul (4.8-10.8)
[2017-10-21 06:58] LABS: ANION GAP 22 (8-16); BLOOD UREA NITROGEN 65 mg/dl (7-20); CALCIUM 8.4 mg/dl (8.4-10.2); CARBON DIOXIDE 24 mmol/L (21-31); CHLORIDE 98 mmol/L (97-110); CREATININE 5.04 mg/dl (0.44-1.00); GLUCOSE 252 mg/dl (70-220); POTASSIUM 4.6 mmol/L (3.5-5.1); SODIUM 139 mmol/L (135-144)
[2017-10-21] MEDS: FUROSEMIDE 40 MG TAB PO (08:00)
[2017-10-21] MEDS: ISOSORBIDE DINITRATE 20 MG TAB PO ×3 (08:00→21:00)
[2017-10-21] MEDS: NIFEdipine (XL) 60 MG TAB PO (08:01)
[2017-10-21] MEDS: LINAGLIPTIN 5 MG TABLET PO (09:10)
[2017-10-21] MEDS: ASPIRIN 81 MG TAB PO (09:10)
[2017-10-21] MEDS: MULTIVIT/CA CARB/B CMPLX/FA TAB PO (09:10)
[2017-10-21] MEDS: POTASSIUM CHLORIDE (SR) 20 MEQ TAB PO (09:10)
[2017-10-21] MEDS: CITRIC ACID/SODIUM CITRATE 15 ML CUP PO ×3 (09:10→21:19)
[2017-10-21] MEDS: SILVER SULFADIAZINE 1% 25 GM CR TOP (09:10)
[2017-10-21] MEDS: HEPARIN 5,000 UNIT/0.5 ML VIAL SC ×2 (09:11→21:18)
[2017-10-21] MEDS: INSULIN ASPART [NOVOLOG] 3 ML PEN SC ×7 (09:12→21:00)
[2017-10-21] MEDS: CLOTRIMAZOLE 1% 30 GM CR TOP ×2 (09:17→21:00)
[2017-10-21 17:36] LABS: HEPATITIS B SURFACE ANTIGEN NEGATIVE (NEGATIVE)
[2017-10-21] MEDS: HEPARIN 1000 UNITS/ML 10 ML INJ CATHETER (18:59)
[2017-10-21] MEDS: INSULIN GLARGINE [LANtus] 3 ML PEN SC (21:17)
[2017-10-21] MEDS: ATORVASTATIN 40 MG TAB PO (21:18)
[2017-10-22 05:26] LABS: ADD MAN DIFF? NO
[2017-10-22 05:27] LABS: BASOPHIL # 0.1 10^3/ul (0.0-0.1); BASOPHILS % 0.5 % (0.0-2.0); EOSINOPHILS # 0.3 10^3/ul (0.0-0.5); EOSINOPHILS % 2.8 % (0.0-7.0); HEMATOCRIT 29.9 % (37.0-47.0); HEMOGLOBIN 9.5 g/dl (12.0-16.0); LYMPHOCYTES # 1.8 10^3/ul (0.8-2.9); LYMPHOCYTES % 18.5 % (15.0-51.0); MEAN CORPUSCULAR HEMOGLOBIN 29.6 pg (29.0-33.0); MEAN CORPUSCULAR HGB CONC 31.8 g/dl (32.0-37.0); MEAN CORPUSCULAR VOLUME 93.1 fl (82.0-101.0); MONOCYTE # 0.9 10^3/ul (0.3-0.9); MONOCYTES % 8.5 % (0.0-11.0); NEUTROPHIL # 6.9 10^3/ul (1.6-7.5); PLATELET COUNT 247 10^3/UL (140-415); RED BLOOD COUNT 3.21 10^6/ul (4.20-5.40); RED CELL DISTRIBUTION WIDTH 17.6 % (11.5-14.5)
[2017-10-22 05:46] LABS: ANION GAP 19 (8-16); BLOOD UREA NITROGEN 42 mg/dl (7-20); CALCIUM 8.3 mg/dl (8.4-10.2); CARBON DIOXIDE 26 mmol/L (21-31); CHLORIDE 99 mmol/L (97-110); CREATININE 3.32 mg/dl (0.44-1.00); GLUCOSE 268 mg/dl (70-220); POTASSIUM 5.2 mmol/L (3.5-5.1); SODIUM 139 mmol/L (135-144)
[2017-10-22] MEDS: PANTOPRAZOLE (EC) 40 MG TAB PO (05:56)
[2017-10-22] MEDS: EPOETIN 10000 UNITS/1 ML INJ (ESRD) SC (06:16)
[2017-10-22] MEDS: ISOSORBIDE DINITRATE 20 MG TAB PO ×3 (08:02→21:01)
[2017-10-22] MEDS: POTASSIUM CHLORIDE (SR) 20 MEQ TAB PO (08:02)
[2017-10-22] MEDS: HEPARIN 5,000 UNIT/0.5 ML VIAL SC ×2 (09:10→21:04)
[2017-10-22] MEDS: INSULIN ASPART [NOVOLOG] 3 ML PEN SC ×7 (09:11→21:00)
[2017-10-22] MEDS: SILVER SULFADIAZINE 1% 25 GM CR TOP (09:12)
[2017-10-22] MEDS: MULTIVIT/CA CARB/B CMPLX/FA TAB PO (09:12)
[2017-10-22] MEDS: LINAGLIPTIN 5 MG TABLET PO (09:12)
[2017-10-22] MEDS: CLOTRIMAZOLE 1% 30 GM CR TOP ×2 (09:12→21:00)
[2017-10-22] MEDS: CITRIC ACID/SODIUM CITRATE 15 ML CUP PO ×3 (09:12→21:01)
[2017-10-22] MEDS: ASPIRIN 81 MG TAB PO (09:13)
[2017-10-22] MEDS: FUROSEMIDE 40 MG TAB PO (09:13)
[2017-10-22] MEDS: NIFEdipine (XL) 60 MG TAB PO (09:13)
[2017-10-22] MEDS: ATORVASTATIN 40 MG TAB PO (20:59)
[2017-10-22] MEDS: INSULIN GLARGINE [LANtus] 3 ML PEN SC (21:03)
[2017-10-22] MEDS: ACCU-CHEK XX (21:36)
[2017-10-23] MEDS: NYSTATIN 30 GM POWDER BTL TOP ×4 (02:19→21:00)
[2017-10-23] MEDS: PANTOPRAZOLE (EC) 40 MG TAB PO (05:30)
[2017-10-23 05:35] LABS: ANION GAP 19 (8-16); BLOOD UREA NITROGEN 61 mg/dl (7-20); CALCIUM 8.5 mg/dl (8.4-10.2); CARBON DIOXIDE 26 mmol/L (21-31); CHLORIDE 95 mmol/L (97-110); CREATININE 4.68 mg/dl (0.44-1.00); GLUCOSE 224 mg/dl (70-220); POTASSIUM 4.2 mmol/L (3.5-5.1); SODIUM 136 mmol/L (135-144)
[2017-10-23] MEDS: INSULIN ASPART [NOVOLOG] 3 ML PEN SC ×7 (08:56→22:04)
[2017-10-23] MEDS: NIFEdipine (XL) 60 MG TAB PO (09:00)
[2017-10-23] MEDS: FUROSEMIDE 40 MG TAB PO (09:00)
[2017-10-23] MEDS: ISOSORBIDE DINITRATE 20 MG TAB PO ×3 (09:00→21:00)
[2017-10-23] MEDS: LINAGLIPTIN 5 MG TABLET PO (09:06)
[2017-10-23] MEDS: MULTIVIT/CA CARB/B CMPLX/FA TAB PO (09:06)
[2017-10-23] MEDS: ASPIRIN 81 MG TAB PO (09:06)
[2017-10-23] MEDS: CITRIC ACID/SODIUM CITRATE 15 ML CUP PO ×2 (09:07→13:29)
[2017-10-23] MEDS: HEPARIN 5,000 UNIT/0.5 ML VIAL SC ×2 (09:12→22:05)
[2017-10-23] MEDS: SILVER SULFADIAZINE 1% 25 GM CR TOP (11:58)
[2017-10-23] MEDS: CLOTRIMAZOLE 1% 30 GM CR TOP ×2 (11:58→21:00)
[2017-10-23] MEDS: ATORVASTATIN 40 MG TAB PO (21:00)
[2017-10-23] MEDS: INSULIN GLARGINE [LANtus] 3 ML PEN SC (22:02)
[2017-10-23] MEDS: HEPARIN 1000 UNITS/ML 10 ML INJ CATHETER (23:09)
[2017-10-24] MEDS: CITRIC ACID/SODIUM CITRATE 15 ML CUP PO ×4 (01:58→20:28)
[2017-10-24] MEDS: ATORVASTATIN 40 MG TAB PO ×2 (01:59→20:29)
[2017-10-24] MEDS: ACCU-CHEK XX (02:03)
[2017-10-24] MEDS: PANTOPRAZOLE (EC) 40 MG TAB PO (06:50)
[2017-10-24] MEDS: INSULIN ASPART [NOVOLOG] 3 ML PEN SC ×7 (07:50→20:13)
[2017-10-24] MEDS: ASPIRIN 81 MG TAB PO (09:41)
[2017-10-24] MEDS: HEPARIN 5,000 UNIT/0.5 ML VIAL SC ×2 (09:41→20:31)
[2017-10-24] MEDS: ISOSORBIDE DINITRATE 20 MG TAB PO ×3 (09:43→20:35)
[2017-10-24] MEDS: NIFEdipine (XL) 60 MG TAB PO (09:43)
[2017-10-24] MEDS: FUROSEMIDE 40 MG TAB PO (09:44)
[2017-10-24] MEDS: LINAGLIPTIN 5 MG TABLET PO (09:44)
[2017-10-24] MEDS: CLOTRIMAZOLE 1% 30 GM CR TOP ×2 (13:01→20:14)
[2017-10-24] MEDS: NYSTATIN 30 GM POWDER BTL TOP ×2 (13:02→20:14)
[2017-10-24] MEDS: MULTIVIT/CA CARB/B CMPLX/FA TAB PO (13:44)
[2017-10-24] MEDS: SILVER SULFADIAZINE 1% 25 GM CR TOP (13:44)
[2017-10-24] MEDS: ERGOCALCIFEROL 50,000 UNIT CAP PO (15:14)
[2017-10-24] MEDS: INSULIN GLARGINE [LANtus] 3 ML PEN SC (20:11)
[2017-10-24] MEDS: SOD CHLORIDE 0.9% 500 ML IV (21:00)
[2017-10-25] MEDS: ACCU-CHEK XX (01:58)
[2017-10-25 05:04] LABS: ADD MAN DIFF? NO
[2017-10-25 05:07] LABS: WHITE BLOOD COUNT 8.6 10^3/ul (4.8-10.8)
[2017-10-25 05:07] LABS: BASOPHIL # 0.1 10^3/ul (0.0-0.1); BASOPHILS % 1.2 % (0.0-2.0); EOSINOPHILS # 0.3 10^3/ul (0.0-0.5); EOSINOPHILS % 3.8 % (0.0-7.0); HEMATOCRIT 29.9 % (37.0-47.0); HEMOGLOBIN 9.4 g/dl (12.0-16.0); LYMPHOCYTES # 2.2 10^3/ul (0.8-2.9); MEAN CORPUSCULAR HEMOGLOBIN 29.9 pg (29.0-33.0); MEAN CORPUSCULAR HGB CONC 31.4 g/dl (32.0-37.0); MEAN CORPUSCULAR VOLUME 95.2 fl (82.0-101.0); MEAN PLATELET VOLUME 10.2 fl (7.4-10.4); MONOCYTE # 0.9 10^3/ul (0.3-0.9); NEUTROPHILS % 58.1 % (39.0-77.0); PLATELET COUNT 253 10^3/UL (140-415); RED BLOOD COUNT 3.14 10^6/ul (4.20-5.40); RED CELL DISTRIBUTION WIDTH 18.2 % (11.5-14.5)
[2017-10-25 05:42] LABS: ANION GAP 19 (8-16); BLOOD UREA NITROGEN 53 mg/dl (7-20); CALCIUM 8.9 mg/dl (8.4-10.2); CARBON DIOXIDE 27 mmol/L (21-31); CHLORIDE 98 mmol/L (97-110); CREATININE 4.25 mg/dl (0.44-1.00); GLUCOSE 233 mg/dl (70-220); POTASSIUM 4.9 mmol/L (3.5-5.1); SODIUM 139 mmol/L (135-144)
[2017-10-25] MEDS: PANTOPRAZOLE (EC) 40 MG TAB PO (06:10)
[2017-10-25] MEDS: MULTIVIT/CA CARB/B CMPLX/FA TAB PO (09:00)
[2017-10-25] MEDS: ASPIRIN 81 MG TAB PO (09:00)
[2017-10-25] MEDS: CITRIC ACID/SODIUM CITRATE 15 ML CUP PO ×3 (09:00→21:00)
[2017-10-25] MEDS: LINAGLIPTIN 5 MG TABLET PO (09:00)
[2017-10-25] MEDS: FUROSEMIDE 40 MG TAB PO (09:00)
[2017-10-25] MEDS: NIFEdipine (XL) 60 MG TAB PO (09:01)
[2017-10-25] MEDS: HEPARIN 5,000 UNIT/0.5 ML VIAL SC ×2 (09:03→21:07)
[2017-10-25] MEDS: CLOTRIMAZOLE 1% 30 GM CR TOP ×2 (09:04→21:13)
[2017-10-25] MEDS: SILVER SULFADIAZINE 1% 25 GM CR TOP (09:04)
[2017-10-25] MEDS: NYSTATIN 30 GM POWDER BTL TOP ×2 (09:04→21:12)
[2017-10-25] MEDS: INSULIN ASPART [NOVOLOG] 3 ML PEN SC ×7 (09:06→21:06)
[2017-10-25] MEDS: ATORVASTATIN 40 MG TAB PO (21:00)
[2017-10-25] MEDS: INSULIN GLARGINE [LANtus] 3 ML PEN SC (21:05)
[2017-10-26] MEDS: ACCU-CHEK XX (02:09)
[2017-10-26] MEDS: PANTOPRAZOLE (EC) 40 MG TAB PO (05:14)
[2017-10-26] MEDS: MULTIVIT/CA CARB/B CMPLX/FA TAB PO (08:57)
[2017-10-26] MEDS: LINAGLIPTIN 5 MG TABLET PO (08:57)
[2017-10-26] MEDS: NIFEdipine (XL) 60 MG TAB PO (08:57)
[2017-10-26] MEDS: CITRIC ACID/SODIUM CITRATE 15 ML CUP PO ×3 (08:57→20:55)
[2017-10-26] MEDS: FUROSEMIDE 40 MG TAB PO (08:58)
[2017-10-26] MEDS: ASPIRIN 81 MG TAB PO (08:58)
[2017-10-26] MEDS: INSULIN ASPART [NOVOLOG] 3 ML PEN SC ×7 (09:01→21:00)
[2017-10-26] MEDS: CLOTRIMAZOLE 1% 30 GM CR TOP ×2 (09:03→21:54)
[2017-10-26] MEDS: NYSTATIN 30 GM POWDER BTL TOP ×2 (09:03→21:54)
[2017-10-26] MEDS: SILVER SULFADIAZINE 1% 25 GM CR TOP (09:03)
[2017-10-26] MEDS: HEPARIN 5,000 UNIT/0.5 ML VIAL SC ×2 (09:10→21:00)
[2017-10-26] MEDS ORDERED: ALBUMIN HUMAN 25% 100 ML IV (17:30)
[2017-10-26] MEDS: HEPARIN 1000 UNITS/ML 10 ML INJ CATHETER (20:25)
[2017-10-26] MEDS: ATORVASTATIN 40 MG TAB PO (20:55)
[2017-10-26] MEDS: INSULIN GLARGINE [LANtus] 3 ML PEN SC (20:58)
[2017-10-26] MEDS: DIPHENHYDRAMINE 25 MG CAP PO (21:54)
[2017-10-26] MEDS: EPOETIN 10000 UNITS/1 ML INJ (ESRD) SC (22:02)
[2017-10-27] MEDS: ACCU-CHEK XX (02:00)
[2017-10-27] MEDS: PANTOPRAZOLE (EC) 40 MG TAB PO (07:26)
[2017-10-27] MEDS: hydrALAzine 20 MG INJ IV (07:50)
[2017-10-27] MEDS: SILVER SULFADIAZINE 1% 25 GM CR TOP (08:48)
[2017-10-27] MEDS: CLOTRIMAZOLE 1% 30 GM CR TOP ×2 (08:48→21:51)
[2017-10-27] MEDS: NYSTATIN 30 GM POWDER BTL TOP ×2 (08:48→20:23)
[2017-10-27] MEDS: CITRIC ACID/SODIUM CITRATE 15 ML CUP PO ×3 (09:00→20:21)
[2017-10-27] MEDS: INSULIN ASPART [NOVOLOG] 3 ML PEN SC ×7 (09:20→20:26)
[2017-10-27] MEDS: HEPARIN 5,000 UNIT/0.5 ML VIAL SC ×2 (09:21→20:28)
[2017-10-27] MEDS: MULTIVIT/CA CARB/B CMPLX/FA TAB PO (09:23)
[2017-10-27] MEDS: LINAGLIPTIN 5 MG TABLET PO (09:23)
[2017-10-27] MEDS: ASPIRIN 81 MG TAB PO (09:58)
[2017-10-27] MEDS: NIFEdipine (XL) 60 MG TAB PO (09:59)
[2017-10-27] MEDS: FUROSEMIDE 40 MG TAB PO (09:59)
[2017-10-27] MEDS: ATORVASTATIN 40 MG TAB PO (20:21)
[2017-10-27] MEDS: INSULIN GLARGINE [LANtus] 3 ML PEN SC (20:27)
[2017-10-28] MEDS: ACCU-CHEK XX ×2 (01:13→22:43)
[2017-10-28 05:18] LABS: ADD MAN DIFF? NO
[2017-10-28 05:22] LABS: BASOPHIL # 0.1 10^3/ul (0.0-0.1); BASOPHILS % 1.1 % (0.0-2.0); EOSINOPHILS # 0.2 10^3/ul (0.0-0.5); EOSINOPHILS % 2.8 % (0.0-7.0); HEMOGLOBIN 9.9 g/dl (12.0-16.0); LYMPHOCYTES # 2.1 10^3/ul (0.8-2.9); LYMPHOCYTES % 25.4 % (15.0-51.0); MEAN CORPUSCULAR HEMOGLOBIN 29.9 pg (29.0-33.0); MEAN CORPUSCULAR HGB CONC 31.9 g/dl (32.0-37.0); MEAN CORPUSCULAR VOLUME 93.7 fl (82.0-101.0); MEAN PLATELET VOLUME 10.1 fl (7.4-10.4); MONOCYTE # 0.7 10^3/ul (0.3-0.9); MONOCYTES % 8.8 % (0.0-11.0); NEUTROPHILS % 61.2 % (39.0-77.0); PLATELET COUNT 274 10^3/UL (140-415); RED BLOOD COUNT 3.31 10^6/ul (4.20-5.40); RED CELL DISTRIBUTION WIDTH 18.2 % (11.5-14.5)
[2017-10-28 05:22] LABS: WHITE BLOOD COUNT 8.2 10^3/ul (4.8-10.8)
[2017-10-28 05:49] LABS: ANION GAP 18 (8-16); BLOOD UREA NITROGEN 56 mg/dl (7-20); CALCIUM 8.8 mg/dl (8.4-10.2); CARBON DIOXIDE 25 mmol/L (21-31); CHLORIDE 102 mmol/L (97-110); CREATININE 3.88 mg/dl (0.44-1.00); GLUCOSE 192 mg/dl (70-220); POTASSIUM 4.8 mmol/L (3.5-5.1); SODIUM 140 mmol/L (135-144)
[2017-10-28] MEDS: PANTOPRAZOLE (EC) 40 MG TAB PO (06:02)
[2017-10-28] MEDS: INSULIN ASPART [NOVOLOG] 3 ML PEN SC ×7 (08:40→21:00)
[2017-10-28] MEDS: HEPARIN 5,000 UNIT/0.5 ML VIAL SC ×2 (08:42→21:00)
[2017-10-28] MEDS: ASPIRIN 81 MG TAB PO (08:42)
[2017-10-28] MEDS: LINAGLIPTIN 5 MG TABLET PO (08:42)
[2017-10-28] MEDS: MULTIVIT/CA CARB/B CMPLX/FA TAB PO (08:42)
[2017-10-28] MEDS: CITRIC ACID/SODIUM CITRATE 15 ML CUP PO ×3 (08:43→21:10)
[2017-10-28] MEDS: NIFEdipine (XL) 60 MG TAB PO (09:00)
[2017-10-28] MEDS: FUROSEMIDE 40 MG TAB PO (09:00)
[2017-10-28] MEDS: SILVER SULFADIAZINE 1% 25 GM CR TOP (12:56)
[2017-10-28] MEDS: NYSTATIN 30 GM POWDER BTL TOP ×2 (12:59→21:16)
[2017-10-28] MEDS: CLOTRIMAZOLE 1% 30 GM CR TOP ×2 (13:00→21:15)
[2017-10-28] MEDS: HEPARIN 1000 UNITS/ML 10 ML INJ HE (20:32)
[2017-10-28] MEDS: ATORVASTATIN 40 MG TAB PO (21:10)
[2017-10-28] MEDS: INSULIN GLARGINE [LANtus] 3 ML PEN SC (21:10)
[2017-10-28] MEDS: EPOETIN 10000 UNITS/1 ML INJ (ESRD) SC (22:48)
[2017-10-29] MEDS: PANTOPRAZOLE (EC) 40 MG TAB PO (05:10)
[2017-10-29] MEDS: MULTIVIT/CA CARB/B CMPLX/FA TAB PO (08:21)
[2017-10-29] MEDS: ASPIRIN 81 MG TAB PO (08:22)
[2017-10-29] MEDS: FUROSEMIDE 40 MG TAB PO (08:22)
[2017-10-29] MEDS: LINAGLIPTIN 5 MG TABLET PO (08:23)
[2017-10-29] MEDS: NIFEdipine (XL) 60 MG TAB PO (08:23)
[2017-10-29] MEDS: CITRIC ACID/SODIUM CITRATE 15 ML CUP PO ×3 (08:23→21:17)
[2017-10-29] MEDS: NYSTATIN 30 GM POWDER BTL TOP ×2 (08:24→23:16)
[2017-10-29] MEDS: SILVER SULFADIAZINE 1% 25 GM CR TOP (08:24)
[2017-10-29] MEDS: CLOTRIMAZOLE 1% 30 GM CR TOP ×2 (08:24→21:00)
[2017-10-29] MEDS: INSULIN ASPART [NOVOLOG] 3 ML PEN SC ×7 (08:35→21:22)
[2017-10-29] MEDS: HEPARIN 5,000 UNIT/0.5 ML VIAL SC ×2 (08:36→21:23)
[2017-10-29] MEDS: ATORVASTATIN 40 MG TAB PO (21:17)
[2017-10-29] MEDS: INSULIN GLARGINE [LANtus] 3 ML PEN SC (23:16)
[2017-10-30] MEDS: ACCU-CHEK XX (02:15)
[2017-10-30 05:12] LABS: ADD MAN DIFF? NO
[2017-10-30 05:19] LABS: PLATELET COUNT 275 10^3/UL (140-415)
[2017-10-30 05:20] LABS: BASOPHIL # 0.1 10^3/ul (0.0-0.1); BASOPHILS % 0.9 % (0.0-2.0); EOSINOPHILS # 0.3 10^3/ul (0.0-0.5); EOSINOPHILS % 3.7 % (0.0-7.0); HEMATOCRIT 31.9 % (37.0-47.0); LYMPHOCYTES # 1.9 10^3/ul (0.8-2.9); MEAN CORPUSCULAR HEMOGLOBIN 29.7 pg (29.0-33.0); MEAN CORPUSCULAR HGB CONC 31.3 g/dl (32.0-37.0); MEAN CORPUSCULAR VOLUME 94.7 fl (82.0-101.0); MEAN PLATELET VOLUME 10.1 fl (7.4-10.4); MONOCYTE # 0.8 10^3/ul (0.3-0.9); MONOCYTES % 8.8 % (0.0-11.0); NEUTROPHIL # 5.9 10^3/ul (1.6-7.5); NEUTROPHILS % 64.9 % (39.0-77.0); PLATELET COUNT 270 10^3/UL (140-415); RED BLOOD COUNT 3.37 10^6/ul (4.20-5.40); RED CELL DISTRIBUTION WIDTH 18.1 % (11.5-14.5)
[2017-10-30 05:38] LABS: PROTIME 13.3 Sec (11.9-14.9)
[2017-10-30 05:44] LABS: ANION GAP 18 (8-16); BLOOD UREA NITROGEN 53 mg/dl (7-20); CALCIUM 8.8 mg/dl (8.4-10.2); CARBON DIOXIDE 24 mmol/L (21-31); CHLORIDE 101 mmol/L (97-110); GLUCOSE 291 mg/dl (70-220); POTASSIUM 4.8 mmol/L (3.5-5.1); SODIUM 138 mmol/L (135-144)
[2017-10-30] MEDS: PANTOPRAZOLE (EC) 40 MG TAB PO (06:05)
[2017-10-30 06:55] LABS: THROMBIN TIME 17.8 SEC (13.8-19.1)
[2017-10-30] MEDS: NIFEdipine (XL) 60 MG TAB PO (09:00)
[2017-10-30] MEDS: FUROSEMIDE 40 MG TAB PO (09:00)
[2017-10-30] MEDS: LIDOCAINE 1%/EPI 30 ML INJ INJ (09:30)
[2017-10-30] MEDS: NYSTATIN 30 GM POWDER BTL TOP ×2 (09:52→21:09)
[2017-10-30] MEDS: POVIDONE IODINE 10% 28.4 GM OINT TOP (09:53)
[2017-10-30] MEDS: CLOTRIMAZOLE 1% 30 GM CR TOP ×2 (09:53→21:09)
[2017-10-30] MEDS: CITRIC ACID/SODIUM CITRATE 15 ML CUP PO ×3 (09:53→21:00)
[2017-10-30] MEDS: HEPARIN 5,000 UNIT/0.5 ML VIAL SC ×2 (09:54→21:04)
[2017-10-30] MEDS: INSULIN ASPART [NOVOLOG] 3 ML PEN SC ×7 (09:55→21:00)
[2017-10-30] MEDS: LINAGLIPTIN 5 MG TABLET PO (09:56)
[2017-10-30] MEDS: MULTIVIT/CA CARB/B CMPLX/FA TAB PO (09:56)
[2017-10-30] MEDS: ASPIRIN 81 MG TAB PO (09:56)
[2017-10-30] MEDS: SILVER SULFADIAZINE 1% 25 GM CR TOP (09:57)
[2017-10-30] MEDS ORDERED: LIDOCAINE 2%/EPI MPF (SDV) 20 ML VIAL INJ (13:00)
[2017-10-30] MEDS: LIDOCAINE 1.5%/EPI MPF (SDV) 30 ML VIAL INJ (13:30)
[2017-10-30] MEDS: ATORVASTATIN 40 MG TAB PO (21:00)
[2017-10-30] MEDS: INSULIN GLARGINE [LANtus] 3 ML PEN SC (21:05)
[2017-10-31] MEDS: ACCU-CHEK XX (02:00)
[2017-10-31] MEDS: PANTOPRAZOLE (EC) 40 MG TAB PO (05:20)
[2017-10-31 06:23] LABS: ADD MAN DIFF? NO
[2017-10-31 06:32] LABS: WHITE BLOOD COUNT 9.4 10^3/ul (4.8-10.8)
[2017-10-31 06:32] LABS: BASOPHIL # 0.1 10^3/ul (0.0-0.1); BASOPHILS % 0.8 % (0.0-2.0); EOSINOPHILS # 0.3 10^3/ul (0.0-0.5); EOSINOPHILS % 2.7 % (0.0-7.0); HEMATOCRIT 33.7 % (37.0-47.0); HEMOGLOBIN 10.5 g/dl (12.0-16.0); LYMPHOCYTES # 1.6 10^3/ul (0.8-2.9); LYMPHOCYTES % 16.6 % (15.0-51.0); MEAN CORPUSCULAR HEMOGLOBIN 30.1 pg (29.0-33.0); MEAN CORPUSCULAR HGB CONC 31.2 g/dl (32.0-37.0); MEAN CORPUSCULAR VOLUME 96.6 fl (82.0-101.0); MEAN PLATELET VOLUME 10.3 fl (7.4-10.4); MONOCYTE # 0.7 10^3/ul (0.3-0.9); MONOCYTES % 7.2 % (0.0-11.0); NEUTROPHIL # 6.8 10^3/ul (1.6-7.5); NEUTROPHILS % 72.2 % (39.0-77.0); PLATELET COUNT 296 10^3/UL (140-415); RED BLOOD COUNT 3.49 10^6/ul (4.20-5.40); RED CELL DISTRIBUTION WIDTH 18.6 % (11.5-14.5)
[2017-10-31 06:56] LABS: ANION GAP 15 (8-16); BLOOD UREA NITROGEN 33 mg/dl (7-20); CALCIUM 8.9 mg/dl (8.4-10.2); CARBON DIOXIDE 30 mmol/L (21-31); CHLORIDE 102 mmol/L (97-110); GLUCOSE 319 mg/dl (70-220); POTASSIUM 4.5 mmol/L (3.5-5.1); SODIUM 142 mmol/L (135-144)
[2017-10-31] MEDS: MULTIVIT/CA CARB/B CMPLX/FA TAB PO (08:55)
[2017-10-31] MEDS: LINAGLIPTIN 5 MG TABLET PO (08:55)
[2017-10-31] MEDS: CITRIC ACID/SODIUM CITRATE 15 ML CUP PO ×3 (08:55→20:39)
[2017-10-31] MEDS: FUROSEMIDE 40 MG TAB PO (08:55)
[2017-10-31] MEDS: NIFEdipine (XL) 60 MG TAB PO (08:56)
[2017-10-31] MEDS: ASPIRIN 81 MG TAB PO (08:58)
[2017-10-31] MEDS: POVIDONE IODINE 10% 28.4 GM OINT TOP (08:58)
[2017-10-31] MEDS: SILVER SULFADIAZINE 1% 25 GM CR TOP (08:59)
[2017-10-31] MEDS: CLOTRIMAZOLE 1% 30 GM CR TOP ×2 (08:59→20:43)
[2017-10-31] MEDS: NYSTATIN 30 GM POWDER BTL TOP ×2 (08:59→20:45)
[2017-10-31] MEDS: INSULIN ASPART [NOVOLOG] 3 ML PEN SC ×7 (09:08→20:45)
[2017-10-31] MEDS: HEPARIN 5,000 UNIT/0.5 ML VIAL SC ×2 (09:09→20:43)
[2017-10-31] MEDS: ERGOCALCIFEROL 50,000 UNIT CAP PO (13:17)
[2017-10-31] MEDS: ATORVASTATIN 40 MG TAB PO (20:39)
[2017-10-31] MEDS: INSULIN GLARGINE [LANtus] 3 ML PEN SC (21:31)
[2017-11-01] MEDS: ACCU-CHEK XX (02:00)
[2017-11-01] MEDS: PANTOPRAZOLE (EC) 40 MG TAB PO (05:59)
[2017-11-01] MEDS: FUROSEMIDE 40 MG TAB PO (07:23)
[2017-11-01] MEDS: NIFEdipine (XL) 60 MG TAB PO (07:23)
[2017-11-01] MEDS: INSULIN ASPART [NOVOLOG] 3 ML PEN SC ×7 (07:50→20:24)
[2017-11-01] MEDS: LINAGLIPTIN 5 MG TABLET PO (09:18)
[2017-11-01] MEDS: CITRIC ACID/SODIUM CITRATE 15 ML CUP PO ×3 (09:18→20:16)
[2017-11-01] MEDS: MULTIVIT/CA CARB/B CMPLX/FA TAB PO (09:18)
[2017-11-01] MEDS: ASPIRIN 81 MG TAB PO (09:18)
[2017-11-01] MEDS: CLOTRIMAZOLE 1% 30 GM CR TOP ×2 (09:19→20:21)
[2017-11-01] MEDS: POVIDONE IODINE 10% 28.4 GM OINT TOP (09:19)
[2017-11-01] MEDS: SILVER SULFADIAZINE 1% 25 GM CR TOP (09:19)
[2017-11-01] MEDS: NYSTATIN 30 GM POWDER BTL TOP ×2 (09:19→20:21)
[2017-11-01] MEDS: HEPARIN 5,000 UNIT/0.5 ML VIAL SC ×2 (09:22→20:21)
[2017-11-01] MEDS: ATORVASTATIN 40 MG TAB PO (20:16)
[2017-11-01] MEDS: INSULIN GLARGINE [LANtus] 3 ML PEN SC (20:20)
[2017-11-02] MEDS: ACCU-CHEK XX (02:00)
[2017-11-02] MEDS: PANTOPRAZOLE (EC) 40 MG TAB PO (05:42)
[2017-11-02 05:47] LABS: ADD MAN DIFF? NO
[2017-11-02 05:49] LABS: BASOPHIL # 0.1 10^3/ul (0.0-0.1); BASOPHILS % 0.7 % (0.0-2.0); EOSINOPHILS # 0.4 10^3/ul (0.0-0.5); EOSINOPHILS % 4.5 % (0.0-7.0); HEMATOCRIT 32.2 % (37.0-47.0); HEMOGLOBIN 10.1 g/dl (12.0-16.0); LYMPHOCYTES # 2.1 10^3/ul (0.8-2.9); LYMPHOCYTES % 23.1 % (15.0-51.0); MEAN CORPUSCULAR HEMOGLOBIN 30.2 pg (29.0-33.0); MEAN CORPUSCULAR HGB CONC 31.4 g/dl (32.0-37.0); MEAN CORPUSCULAR VOLUME 96.4 fl (82.0-101.0); MEAN PLATELET VOLUME 10.1 fl (7.4-10.4); MONOCYTE # 0.7 10^3/ul (0.3-0.9); MONOCYTES % 8.1 % (0.0-11.0); NEUTROPHIL # 5.7 10^3/ul (1.6-7.5); PLATELET COUNT 261 10^3/UL (140-415); RED BLOOD COUNT 3.34 10^6/ul (4.20-5.40); RED CELL DISTRIBUTION WIDTH 18.9 % (11.5-14.5)
[2017-11-02 06:07] LABS: ANION GAP 16 (8-16); BLOOD UREA NITROGEN 36 mg/dl (7-20); CARBON DIOXIDE 27 mmol/L (21-31); CHLORIDE 101 mmol/L (97-110); CREATININE 3.27 mg/dl (0.44-1.00); GLUCOSE 229 mg/dl (70-220); POTASSIUM 4.6 mmol/L (3.5-5.1); SODIUM 139 mmol/L (135-144)
[2017-11-02] MEDS: NYSTATIN 30 GM POWDER BTL TOP ×2 (09:00→20:56)
[2017-11-02] MEDS: MULTIVIT/CA CARB/B CMPLX/FA TAB PO (09:11)
[2017-11-02] MEDS: NIFEdipine (XL) 60 MG TAB PO (09:11)
[2017-11-02] MEDS: ASPIRIN 81 MG TAB PO (09:15)
[2017-11-02] MEDS: FUROSEMIDE 40 MG TAB PO (09:16)
[2017-11-02] MEDS: LINAGLIPTIN 5 MG TABLET PO (09:16)
[2017-11-02] MEDS: SILVER SULFADIAZINE 1% 25 GM CR TOP (09:17)
[2017-11-02] MEDS: CLOTRIMAZOLE 1% 30 GM CR TOP ×2 (09:17→20:56)
[2017-11-02] MEDS: POVIDONE IODINE 10% 28.4 GM OINT TOP (09:17)
[2017-11-02] MEDS: INSULIN ASPART [NOVOLOG] 3 ML PEN SC ×7 (09:26→20:55)
[2017-11-02] MEDS: HEPARIN 5,000 UNIT/0.5 ML VIAL SC ×2 (09:26→21:03)
[2017-11-02] MEDS: CITRIC ACID/SODIUM CITRATE 15 ML CUP PO ×3 (10:59→20:23)
[2017-11-02] MEDS: INSULIN GLARGINE [LANtus] 3 ML PEN SC ×2 (20:00→21:02)
[2017-11-02] MEDS: DIPHENHYDRAMINE 25 MG CAP PO (20:18)
[2017-11-02] MEDS: ATORVASTATIN 40 MG TAB PO (20:24)
[2017-11-03] MEDS: ACCU-CHEK XX (01:59)
[2017-11-03] MEDS: PANTOPRAZOLE (EC) 40 MG TAB PO (06:05)
[2017-11-03 06:15] LABS: ADD MAN DIFF? NO
[2017-11-03 06:20] LABS: BASOPHIL # 0.1 10^3/ul (0.0-0.1); BASOPHILS % 0.7 % (0.0-2.0); EOSINOPHILS # 0.4 10^3/ul (0.0-0.5); EOSINOPHILS % 3.9 % (0.0-7.0); HEMATOCRIT 34.1 % (37.0-47.0); HEMOGLOBIN 10.6 g/dl (12.0-16.0); LYMPHOCYTES # 1.9 10^3/ul (0.8-2.9); LYMPHOCYTES % 20.9 % (15.0-51.0); MEAN CORPUSCULAR HEMOGLOBIN 29.6 pg (29.0-33.0); MEAN CORPUSCULAR HGB CONC 31.1 g/dl (32.0-37.0); MEAN CORPUSCULAR VOLUME 95.3 fl (82.0-101.0); MONOCYTE # 0.8 10^3/ul (0.3-0.9); MONOCYTES % 8.3 % (0.0-11.0); NEUTROPHIL # 5.9 10^3/ul (1.6-7.5); NEUTROPHILS % 65.6 % (39.0-77.0); PLATELET COUNT 282 10^3/UL (140-415); RED BLOOD COUNT 3.58 10^6/ul (4.20-5.40); RED CELL DISTRIBUTION WIDTH 18.2 % (11.5-14.5)
[2017-11-03 07:15] LABS: ANION GAP 20 (8-16); BLOOD UREA NITROGEN 51 mg/dl (7-20); CALCIUM 9.3 mg/dl (8.4-10.2); CARBON DIOXIDE 23 mmol/L (21-31); CHLORIDE 101 mmol/L (97-110); CREATININE 4.22 mg/dl (0.44-1.00); GLUCOSE 197 mg/dl (70-220); POTASSIUM 4.7 mmol/L (3.5-5.1); SODIUM 139 mmol/L (135-144)
[2017-11-03] MEDS: LINAGLIPTIN 5 MG TABLET PO (08:59)
[2017-11-03] MEDS: MULTIVIT/CA CARB/B CMPLX/FA TAB PO (08:59)
[2017-11-03] MEDS: ASPIRIN 81 MG TAB PO (08:59)
[2017-11-03] MEDS: FUROSEMIDE 40 MG TAB PO (09:00)
[2017-11-03] MEDS: CITRIC ACID/SODIUM CITRATE 15 ML CUP PO ×3 (09:00→21:26)
[2017-11-03] MEDS: NIFEdipine (XL) 60 MG TAB PO (09:00)
[2017-11-03] MEDS: NYSTATIN 30 GM POWDER BTL TOP ×2 (09:00→21:30)
[2017-11-03] MEDS: HEPARIN 5,000 UNIT/0.5 ML VIAL SC ×2 (09:01→21:29)
[2017-11-03] MEDS: INSULIN ASPART [NOVOLOG] 3 ML PEN SC ×7 (09:02→21:00)
[2017-11-03] MEDS: POVIDONE IODINE 10% 28.4 GM OINT TOP (09:03)
[2017-11-03] MEDS: CLOTRIMAZOLE 1% 30 GM CR TOP ×2 (09:03→21:30)
[2017-11-03] MEDS: SILVER SULFADIAZINE 1% 25 GM CR TOP (09:03)
[2017-11-03] MEDS: ATORVASTATIN 40 MG TAB PO (21:27)
[2017-11-03] MEDS: INSULIN GLARGINE [LANtus] 3 ML PEN SC (21:29)
[2017-11-04] MEDS: ACCU-CHEK XX (02:00)
[2017-11-04] MEDS: PANTOPRAZOLE (EC) 40 MG TAB PO (05:56)
[2017-11-04] MEDS: FUROSEMIDE 40 MG TAB PO (09:41)
[2017-11-04] MEDS: MULTIVIT/CA CARB/B CMPLX/FA TAB PO (09:41)
[2017-11-04] MEDS: ASPIRIN 81 MG TAB PO (09:41)
[2017-11-04] MEDS: NIFEdipine (XL) 60 MG TAB PO (09:42)
[2017-11-04] MEDS: CITRIC ACID/SODIUM CITRATE 15 ML CUP PO ×3 (09:43→20:58)
[2017-11-04] MEDS: LINAGLIPTIN 5 MG TABLET PO (09:44)
[2017-11-04] MEDS: NYSTATIN 30 GM POWDER BTL TOP ×2 (09:45→20:59)
[2017-11-04] MEDS: SILVER SULFADIAZINE 1% 25 GM CR TOP (09:45)
[2017-11-04] MEDS: POVIDONE IODINE 10% 28.4 GM OINT TOP (09:45)
[2017-11-04] MEDS: CLOTRIMAZOLE 1% 30 GM CR TOP ×2 (09:45→20:59)
[2017-11-04] MEDS: INSULIN ASPART [NOVOLOG] 3 ML PEN SC ×7 (09:51→21:00)
[2017-11-04] MEDS: HEPARIN 5,000 UNIT/0.5 ML VIAL SC ×2 (09:54→21:01)
[2017-11-04] MEDS: ATORVASTATIN 40 MG TAB PO (20:58)
[2017-11-04] MEDS: INSULIN GLARGINE [LANtus] 3 ML PEN SC (21:42)
[2017-11-05] MEDS: ACCU-CHEK XX (02:00)
[2017-11-05] MEDS: PANTOPRAZOLE (EC) 40 MG TAB PO (06:18)
[2017-11-05] MEDS: LINAGLIPTIN 5 MG TABLET PO (08:19)
[2017-11-05] MEDS: FUROSEMIDE 40 MG TAB PO (08:19)
[2017-11-05] MEDS: NIFEdipine (XL) 60 MG TAB PO (08:19)
[2017-11-05] MEDS: CITRIC ACID/SODIUM CITRATE 15 ML CUP PO ×3 (08:20→21:37)
[2017-11-05] MEDS: ASPIRIN 81 MG TAB PO (08:20)
[2017-11-05] MEDS: MULTIVIT/CA CARB/B CMPLX/FA TAB PO (08:20)
[2017-11-05] MEDS: CLOTRIMAZOLE 1% 30 GM CR TOP ×2 (08:23→21:39)
[2017-11-05] MEDS: POVIDONE IODINE 10% 28.4 GM OINT TOP (08:24)
[2017-11-05] MEDS: NYSTATIN 30 GM POWDER BTL TOP ×2 (08:24→21:38)
[2017-11-05] MEDS: SILVER SULFADIAZINE 1% 25 GM CR TOP (08:24)
[2017-11-05] MEDS: HEPARIN 5,000 UNIT/0.5 ML VIAL SC ×2 (08:25→21:35)
[2017-11-05] MEDS: INSULIN ASPART [NOVOLOG] 3 ML PEN SC ×7 (08:27→21:00)
[2017-11-05] MEDS: LIDOCAINE 1% (MDV) 20 ML INJ SC (13:03)
[2017-11-05] MEDS: INSULIN GLARGINE [LANtus] 3 ML PEN SC (21:33)
[2017-11-05] MEDS: ATORVASTATIN 40 MG TAB PO (21:36)
[2017-11-06] MEDS: ACCU-CHEK XX (02:00)
[2017-11-06] MEDS: PANTOPRAZOLE (EC) 40 MG TAB PO (05:36)
[2017-11-06] MEDS: INSULIN ASPART [NOVOLOG] 3 ML PEN SC ×7 (08:52→21:00)
[2017-11-06] MEDS: CITRIC ACID/SODIUM CITRATE 15 ML CUP PO ×3 (08:53→21:13)
[2017-11-06] MEDS: ASPIRIN 81 MG TAB PO (08:53)
[2017-11-06] MEDS: LINAGLIPTIN 5 MG TABLET PO (08:53)
[2017-11-06] MEDS: MULTIVIT/CA CARB/B CMPLX/FA TAB PO (08:53)
[2017-11-06] MEDS: FUROSEMIDE 40 MG TAB PO (09:00)
[2017-11-06] MEDS: NIFEdipine (XL) 60 MG TAB PO (09:00)
[2017-11-06] MEDS: CLOTRIMAZOLE 1% 30 GM CR TOP ×2 (09:08→21:00)
[2017-11-06] MEDS: POVIDONE IODINE 10% 28.4 GM OINT TOP (09:08)
[2017-11-06] MEDS: SILVER SULFADIAZINE 1% 25 GM CR TOP (09:08)
[2017-11-06] MEDS: NYSTATIN 30 GM POWDER BTL TOP ×2 (09:08→21:19)
[2017-11-06] MEDS ORDERED: HEPARIN 1000 UNITS/ML 10 ML INJ CATHETER (14:30)
[2017-11-06] MEDS: HEPARIN 5,000 UNIT/0.5 ML VIAL SC ×2 (16:23→21:16)
[2017-11-06] MEDS: ATORVASTATIN 40 MG TAB PO (21:13)
[2017-11-06] MEDS: INSULIN GLARGINE [LANtus] 3 ML PEN SC (21:22)
[2017-11-06] MEDS: EPOETIN 10000 UNITS/1 ML INJ (ESRD) SC (21:33)
== END 2017-11-06 21:45 | DRG 853 ==
LOC: MS2 20:34 → ICU 09-02 00:45 → TEL 09-16 23:27 → MS1 09-22 18:38 → E/R 05:04 → TEL 09-02 08:20 → MS2 08:00 → TEL 09-17 12:54
PROC: 0JBR0ZZ Excision of Left Foot Subcutaneous Tissue and Fascia, Open Approach (ICD-10-PCS; principal; 2017-08-27 10:28)
PROC: 0JDR0ZZ Extraction of Left Foot Subcutaneous Tissue and Fascia, Open Approach (ICD-10-PCS; 2017-08-27 10:28)
PROC: 0MBT0ZZ Excision of Left Foot Bursa and Ligament, Open Approach (ICD-10-PCS; 2017-08-27 10:28)
PROC: 0JB50ZZ Excision of Left Neck Subcutaneous Tissue and Fascia, Open Approach (ICD-10-PCS; 2017-08-27 10:28)
PROC: 0JH63XZ Insertion of Tunneled Vascular Access Device into Chest Subcutaneous Tissue and Fascia, Percutaneous Approach (ICD-10-PCS; 2017-08-27 10:28)
PROC: 02HV33Z Insertion of Infusion Device into Superior Vena Cava, Percutaneous Approach (ICD-10-PCS; 2017-08-27 10:28)
PROC: 5A1D70Z Performance of Urinary Filtration, Intermittent, Less than 6 Hours Per Day (ICD-10-PCS; 2017-08-27 10:28)
PROC: 30233N1 Transfusion of Nonautologous Red Blood Cells into Peripheral Vein, Percutaneous Approach (ICD-10-PCS; 2017-08-27 10:28)
DX: A41.9 Sepsis, unspecified organism (principal); I50.33 Acute on chronic diastolic (congestive) heart failure; N17.9 Acute kidney failure, unspecified; E11.22 Type 2 diabetes mellitus with diabetic chronic kidney disease; N18.6 End stage renal disease; E11.621 Type 2 diabetes mellitus with foot ulcer; L03.115 Cellulitis of right lower limb; Z68.44 Body mass index [BMI] 60.0-69.9, adult; N39.0 Urinary tract infection, site not specified; I13.2 Hypertensive heart and chronic kidney disease with heart failure and with stage 5 chronic kidney disease, or end stage renal disease; L97.528 Non-pressure chronic ulcer of other part of left foot with other specified severity; L03.116 Cellulitis of left lower limb; E66.01 Morbid (severe) obesity due to excess calories; E78.5 Hyperlipidemia, unspecified; I73.9 Peripheral vascular disease, unspecified; E11.65 Type 2 diabetes mellitus with hyperglycemia; D63.1 Anemia in chronic kidney disease; R65.20 Severe sepsis without septic shock; E83.51 Hypocalcemia; L89.620 Pressure ulcer of left heel, unstageable; R21 Rash and other nonspecific skin eruption; E87.5 Hyperkalemia; R22.43 Localized swelling, mass and lump, lower limb, bilateral; M79.3 Panniculitis, unspecified; L72.0 Epidermal cyst; B95.2 Enterococcus as the cause of diseases classified elsewhere; Z86.718 Personal history of other venous thrombosis and embolism; Z74.01 Bed confinement status; Z92.3 Personal history of irradiation; Z85.41 Personal history of malignant neoplasm of cervix uteri; Z89.422 Acquired absence of other left toe(s); Z92.21 Personal history of antineoplastic chemotherapy
CPT/HCPCS: 36415; 36430; 36600; 71010; 72193; 73700; 76536; 80048; 80053; 80061; 80202; 81001; 82270; 82550; 82607; 82728; 82746; 82803; 82962; 83036; 83540; 83605; 83735; 83880; 84100; 84443; 84484; 85025; 85049; 85610; 85670; 85730; 86703; 86704; 86706; 86709; 86803; 86850; 86900; 86901; 86920; 87040; 87070; 87086; 87340; 88307; 90935; 93005; 93970; 94660; 96365; 96372; 96375; 97110; 97161; 97164; 97167; 97530; 97535; 99285-25

== ENCOUNTER 2018-07-31 07:48 | Day surgery (SDC) | payer OTHER ==
[2018-07-31 10:40] LABS: POTASSIUM 4.6 mmol/L (3.5-5.1)
[2018-07-31] MEDS ORDERED: PROPOFOL 20 ML (10:50)
[2018-07-31] MEDS ORDERED: FENTAnyl 50 MCG/ML VIAL (10:51)
== END 2018-07-31 14:53 | disposition home or self-care (01) ==
LOC: GIL 07:48
DX: D12.0 Benign neoplasm of cecum (principal); K64.4 Residual hemorrhoidal skin tags; K64.8 Other hemorrhoids; I12.0 Hypertensive chronic kidney disease with stage 5 chronic kidney disease or end stage renal disease; N18.6 End stage renal disease; Z99.2 Dependence on renal dialysis; E11.9 Type 2 diabetes mellitus without complications; Z99.3 Dependence on wheelchair
CPT/HCPCS: 45380; 84132; 88305